=== PATIENT | female | born 1955 | race Caucasian/White ===

== ENCOUNTER 2018-05-22 07:02 | Day surgery (SDC) | payer MEDICARE, MEDICAID ==
--- NOTE | 2018-05-17 20:03 | HP ---
CC: Ruth Ledezma NP, at the [facility] in [place]; Dr. Breezy Mann; Maru Pierson NP, in [place] * ADMISSION HISTORY AND PHYSICAL: DATE OF ADMISSION: 05/22/18 ATTENDING SURGEON: Dr. Fermin Yeager.* (DICTATED BY GINA KUMAR) CHIEF COMPLAINT: Right breast cancer. HISTORY OF PRESENT ILLNESS: This is a 63-year-old female who noted the presence of a lump in her right breast around the 3 o'clock position beginning about a month ago. There was some associated tenderness. She does not do regular breast self exams. Her last prior mammogram had been in 2008. She was seen by her primary care provider. A mammogram was done on 04/20/18 showing a nodular lesion with irregular margins and mild surrounding architectural distortion measuring up to 1.8 cm in the right breast located at the 10 o'clock position. There was no suspicious lesion noted at the 3 o'clock position. A low suspicion lesion was noted on the left breast measuring 3 mm, but subsequently was compared with previous mammogram and found to be unchanged. Ultrasound was also done on 04/20/18 confirming the presence of a nodular mass measuring up to 1.5 cm in the same area corresponding to the aforementioned mammographic lesion. The patient underwent an ultrasound-guided biopsy of the lesion on 04/27/18. Pathology showed invasive ductal carcinoma, high- grade, triple negative. The patient has met with Dr. Mann, though I do not have that consult immediately available. She was seen by Dr. Yeager on 05/08/18. Per his exam, there was a small masoud from the recent biopsy, but no clearly palpable lesion in the right breast. There was no specific palpable lesion on the left breast nor was there any palpable lymphadenopathy. The patient's family is significant for a niece with history of breast cancer and her sister, who is present today, states that she underwent surgery for an ovarian carcinoma , though the details are not totally clear. Dr. Yeager discussed with the patient the indications for surgery, the risks, benefits and alternatives and the potential need for additional surgery. The patient would like to proceed as scheduled with wide-excision right breast cancer (following needle localization) and sentinel lymph node biopsy. PAST MEDICAL HISTORY: Hypertension, type 2 diabetes, GERD, morbid obesity, hypothyroidism (on replacement), depression, chronic pain (related both to back and to lower extremity neuropathy), obstructive sleep apnea (not currently being treated). PAST SURGICAL HISTORY: Include lumbar laminectomy, right knee arthroscopy, C- section x2, umbilical hernia repair with mesh x2 and tonsillectomy remotely. No reported surgical or anesthesia complications. CURRENT MEDICATIONS: 1. Pantoprazole 40 mg once daily. 2. Levothyroxine 50 mcg once daily. 3. Janumet XR 50-1000 1 tablet b.i.d. 4. Losartan and hydrochlorothiazide 100-12.5 once daily. 5. Fenofibrate 160 mg once daily. 6. Simvastatin 40 mg once daily. 7. Ranitidine 150 mg b.i.d. 8. Duloxetine 60 mg once daily. 9. Lyrica 150 mg 2 tablets once daily. 10. MS Contin 30 mg b.i.d. 11. MSIR 15 mg 4 tablets per day. 12. Combivent 20-100 mcg 1 puff 4 times daily p.r.n. (at most she uses it once daily). ALLERGIES: NIASPAN (lip swelling). FAMILY HISTORY: As above. Also 1 brother with history of DVT. No additional family members with VTE history. No family history of anesthesia problems or bleeding disorder. SOCIAL HISTORY: The patient lives with her granddaughter. She is a smoker of 1 pack per day and encouraged to quit. She denies use of alcohol or other recreational drugs. REVIEW OF SYSTEMS: General: No recent constitutional symptoms or acute illnesses other than described in the HPI. Eyes: No specific problems reported. Ears, Nose, Throat: No problems reported. She is edentulous. Cardiovascular: She is treated for hypertension. She denies history of chest pain, palpitations, MT or angina. Respiratory: COPD and active smoker. No history of asthma. GI: GERD symptoms, which are currently controlled on current regimen. No lower GI symptoms. She has never undergone a screening colonoscopy, but is encouraged to consider it and discuss with her PCP. : No history of kidney stones or other urinary problems. NEWS ASSISTANT: Her last pelvic exam and Pap smear were in 2008 with no interval problems reported. She is encouraged to also discuss this with her PCP. Endocrine: Type 2 diabetes, hypothyroidism. No additions. Neuro/Psych: As above. No additions. The patient is followed for chronic pain by Dr. Pierson in [place]. PHYSICAL EXAMINATION GENERAL: Well-nourished, morbidly obese female, in no acute distress. She is somewhat anxious. VITAL SIGNS: Height 61 inches, weight 265 pounds, BMI 50. Temperature 97.2, blood pressure 140/86, pulse 84, respirations 18. HEENT: Pupils equal and round, reactive. EOMs intact. No conjunctival pallor. Oropharynx: The patient is edentulous. No suspicious intraoral lesions. NECK: No cervical or supraclavicular lymphadenopathy. No axillary lymphadenopathy per Dr. Yeager's exam. No palpable thyromegaly or masses. LUNGS: Clear to auscultation. No rales or wheezes. HEART: Regular rate and rhythm. No murmur noted. BREASTS: As per Dr. Yeager's exam, not repeated today. ABDOMEN: She does have a midline bulge above the umbilicus consistent with a ventral hernia. This is mildly tender to palpation and partially reducible, though I did not make significant attempt to reduce it totally. The remainder of the abdomen is soft, nontender and without palpable masses or organomegaly. GENITALIA: Not done. RECTAL: Not done. BACK: Well-healed lumbar surgical incision, mild tenderness over the lumbar spinous processes. No CVA tenderness. EXTREMITIES: No edema. NEUROLOGICAL: Grossly intact. Specific exam not performed. SKIN: Warm and dry. No suspicious rashes or lesions noted. IMPRESSION: Right breast cancer. PLAN: Wide-excision right breast cancer (after needle localization); sentinel lymph node biopsy. GINA KUMAR [id number]/[facility] #: [id number] [facility]PITAL[facility]asyl
[~2018-05-22 07:02] MED LIST: Buffered Lidocaine 0.9% SYRIN* 5 ML/SYR SYRINGE INTRADERM ONE; ceFAZolin 1 GM VIAL(*) 3 GM in NS 0.9% 100 ML* 130 ML IVPB ONE
[2018-05-22] MEDS ORDERED: Lidocaine 2.5%/Prilocain 2.5%* 5 GM TUBE ONE (07:20)
[2018-05-22] MEDS ORDERED: Buffered Lidocaine 0.9% SYRIN* 5 ML/SYR SYRINGE ONE (07:20)
[2018-05-22] MEDS ORDERED: Insulin REGULAR(*) 1 UNITS UNIT ONE ×2 (08:44→12:10)
[2018-05-22] MEDS ORDERED: Bupivacaine 0.5% SDV PF* 30ML VIAL ONE (10:55)
[2018-05-22] MEDS ORDERED: Lidocaine 1%* 5 ML VIAL ONE (10:57)
--- NOTE | 2018-05-22 11:18 | RAD ---
INDICATION: Right breast carcinoma COMPARISON: Were needle localization same date TECHNIQUE: Informed consent was obtained. Routine timeout protocol was utilized. The right breast was prepped in sterile fashion and 4 intradermal injections representing a total of 0.329 mCi of technetium 99m sulfur colloid was injected in the periareolar region. Imaging was then performed in anterior, BHARDWAJ, and lateral projections. FINDINGS: There is faint visualization of the sentinel node which appears to represent a subclavian lymph node. This is marked on the skin surface No significant mid are high axillary activity is seen. There are faint foci which may represent low axillary lymph node or this may be related to malignancy. IMPRESSION: A SENTINEL NODE WAS MARKED WHICH APPEARS REPRESENT A SUBCLAVIAN LYMPH NODE. THESE FINDINGS WERE DISCUSSED WITH SURGERY.
[2018-05-22] MEDS ORDERED: ceFAZolin 1 GM in Dextrose (*) 1 GM/50 ML BAG IVPB ONE (12:00)
[2018-05-22] MEDS ORDERED: ceFAZolin 2 GM PREMIX (*) 2 GM/50 ML BAG IVPB ONE (12:00)
[2018-05-22] MEDS ORDERED: Albuterol/Ipratropium NEB.SOL* Albuterol 2.5 MG/Ipratropium 0.5 MG 3 ML INH ONE (12:05)
[2018-05-22] MEDS ORDERED: Albuterol/Ipratropium NEB.SOL* Albuterol 2.5 MG/Ipratropium 0.5 MG 3 ML ONE (12:06)
[2018-05-22] MEDS ORDERED: Dexmedetomidine* 200 MCG/2 ML 2 ML VIAL ONE (12:07)
[2018-05-22] MEDS ORDERED: Lidocaine 1% MPF wEPI 200,000* 30 ML SDV ONE ×2 (12:16→13:42)
[2018-05-22] MEDS ORDERED: Midazolam* 1 MG/ML 10 ML VIAL (10 MG) ONE (12:28)
[2018-05-22] MEDS ORDERED: Succinylcholine* 20 MG/ML 10 ML VIAL ONE (12:30)
[2018-05-22] MEDS ORDERED: Rocuronium* 10 MG/ML VIAL ONE (12:30)
--- NOTE | 2018-05-22 13:49 | RAD ---
INDICATION: Right breast carcinoma. Wire needle localization COMPARISON: Mammogram April 26, 2018 TECHNIQUE/FINDINGS:: Informed consent was obtained. A routine timeout protocol was then followed. The right breast was prepped in usual fashion and following infiltration of lidocaine for local anesthesia and using a lateral approach, a 7.5 cm Concepcion wire was placed cyst that the tip of the wire is at the clip. The patient tolerated the procedure well. There were no complications. The specimen radiograph is pending. A sentinel node scan is to follow. IMPRESSION: SUCCESSFUL WIRE NEEDLE LOCALIZATION OF THE RIGHT BREAST MASS. ADDENDUM: The specimen radiograph reveals the microclip, masses, and wire within the biopsy specimen. Findings called to the OR.
[2018-05-22] MEDS ORDERED: Propofol* 10 MG/ML 20 ML BTL IV PUSH ONE (13:58)
[2018-05-22] MEDS ORDERED: fentaNYL* 50 MCG/ML 2 ML VIAL (100 MCG VIAL) IV PRN (14:28)
[2018-05-22] MEDS ORDERED: Naloxone* 0.4 MG/ML 1 ML VIAL IV PRN (14:28)
[2018-05-22] MEDS ORDERED: Ondansetron INJ* 2 MG/ML VIAL IV PRN (14:28)
[2018-05-22] MEDS ORDERED: Acetaminophen TAB* 325 MG PO PRN (14:28)
[2018-05-22] MEDS ORDERED: Dextrose 50% Syringe 50 ML* 25 GM/50 ML SYRINGE IV PUSH PRN (14:30)
[2018-05-22] MEDS ORDERED: Insulin LISPRO* 1 UNITS UNIT SUBCUT ONE ×2 (14:30→14:40)
[2018-05-22 15:08] VITALS: BP 129/73
--- NOTE | 2018-05-22 19:39 | OP ---
CC: Dr. Yeager; Dr. Mann OPERATIVE REPORT: DATE OF OPERATION: 05/22/18 DATE OF : 55 SURGEON: Fermin Yeager MD CLINICAL RESEARCH MONITOR: MANISH Guaman ANESTHESIOLOGIST: Dr. Galindo. ANESTHESIA: LMAC. PRE-OP DIAGNOSIS: Right breast cancer. POST-OP DIAGNOSIS: Right breast cancer. OPERATIVE PROCEDURE: Needle localizing wide excision and sentinel node biopsy of right breast cancer . DESCRIPTION OF PROCEDURE: The patient was supine on the operative table. After adequate intravenous sedation, compression stockings, Lester Hugger warmer and intravenous antibiotics, the right breast an d axillary region were prepped with antiseptic and draped in a sterile fashion. Local infiltrative a nesthesia was administered and approximately 6 cm incision was created coming anteriorly from the wir e. Dissection was carried down into the breast and a piece of tissue approximately 6 x 4 x 2 cm was removed and marked with usual localizing sutures. The tumor was right along the anteromedial aspect, a little towards the inferior side of the specimen. An additional piece of tissue was taken from emelyn t aspect of the cavity. This was marked additionally anterior tissue with a suture marking the true margin and this was sent in formalin. The attention was then turned to the axilla. An incision was created, dissection was carried down to the axillary tissue. A cluster of nodes was identified and a lthough from the external aspect, I could not identify any hot nodes, once I found this cluster of no kelli, there was a hot node within this cluster. The cluster was dissected out on mass and was approxi mately 4 x 3 cm in size. This contained about 4 to 6 clustered nodes. One of them, I interrogated a nd found to be the sentinel node and this was dissected off the others and sent labelled sentinel nod e #1. The additional ones were labelled as additional right axillary nodes. Hemostasis was obtained using cautery and suture were appropriate 3-0 Vicryl followed by thad were used to close both inc isions. Gauze dressings were placed. She was awakened and brought to the recovery in good condition . There were no complications. No drains. Pathologic specimens as above. Sponge and instrument co unts correct. Estimated blood loss 50 mL. [id number]/[facility] #: [id number]
== END 2018-05-22 16:25 | disposition home or self-care (01) ==
LOC: SDS 07:02
PROVIDERS: ATTEND Surgery
DX: C50.911 Malignant neoplasm of unspecified site of right female breast (principal); I10 Essential (primary) hypertension; E11.9 Type 2 diabetes mellitus without complications; Z79.84 Long term (current) use of oral hypoglycemic drugs; E03.9 Hypothyroidism, unspecified; E66.01 Morbid (severe) obesity due to excess calories; G47.33 Obstructive sleep apnea (adult) (pediatric); K21.9 Gastro-esophageal reflux disease without esophagitis; F32.9 Major depressive disorder, single episode, unspecified; G89.29 Other chronic pain
CPT/HCPCS: 78195; 88305; 88307; 88342; 88360; A9270-GY; A9541; J0330; J0690; J2001; J2250; J2704

== ENCOUNTER 2018-06-25 17:17 | Inpatient (IN) | payer MEDICARE, MEDICAID ==
[2018-06-25] MEDS ORDERED: Acetaminophen TAB* 325 MG PO PRN (17:43)
[2018-06-25] MEDS ORDERED: Ondansetron INJ* 2 MG/ML VIAL IV PRN (17:43)
[2018-06-25] MEDS ORDERED: Morphine INJ* 2 MG/ML 1 ML SYRINGE (TWO MG - NEW SYRINGE VERSION) IV PRN (17:43)
[2018-06-25] MEDS ORDERED: Albuterol/Ipratropium RESP(NF) MDI (Combivent Respimat) INH PRN (17:46)
[2018-06-25] MEDS ORDERED: Prochlorperazine TAB* 10 MG PO PRN (17:46)
[2018-06-25] MEDS ORDERED: Magnesium Sulfate IV* 3 GM in NS 0.9% 100 ML* 100 ML IVPB ONE (17:52)
--- OUTSIDE RECORDS SUMMARY | 2018-06-25 18:27 | XMS REPORT ---
:1955 External Reference #:[id number] Author Organization [facility] Address [address] [place] [address] [place] [address] Phone [phone] Care Team Providers Name Role Phone Ruth Ledezma N.P. Primary Care Physician Unavailable Payers Type Date Identification Numbers Payment Provider Subscriber Medicare Primary Policy Number: [id number] Medicare Fouzia Hillman PayID: [id number] [address] [place] [address] [employer] Part B Policy Number: [id number] Medicaid Fouzia Hillman Group Name: 1 1 [address] PayID: [id number] [place] [address] Commercial Effective: 2011 Policy Number: [id number] Alphonso Hillman Expires: 2017 PayID: [id number] [address] [place] [address] Problems Description No Information Family History Date Family Member(s) Problem(s) Comments Father Hypertension Father Heart Disease Mother Lung Cancer Social History Type Date Description Comments Marital Status Occupation Disabled ETOH Use Denies alcohol use Smoking Patient is a current smoker, smokes every day Recreational Drug Use Denies Drug Use Daily Caffeine Consumes on average 1 cup of regular coffee per day Exercise Type/Frequency Does not exercise Allergies, Adverse Reactions, Alerts Date Description Reaction Status Severity Comments 09/14/2012 Niaspan DIFFICULTY BREATHING, RASH active Severe Medications Medication Date Status Form Strength Qnty SIG Indications Ordering Provider Combivent 00// Active Aerosol 20-100mcg/ inhale 1 Unknown Respimat 0000 Act puff 4 times daily as needed Duloxetine HCL / Active Caps DR 60mg 1 by Unknown 0000 Part mouth every day Fenofibrate / Active Tablets 160mg 1 by Unknown 0000 mouth every day Hydrochlorothiaz / Active Tablets 12.5mg/100 1 by Unknown deedee-Losartan 0000 mg mouth every day Janumet XR / Active Tablets ER 50-1000mg one tab Unknown 0000 24HR twice a day Levothyroxine / Active Tablets 50mcg 1 by Unknown Sodium 0000 mouth every day Lyrica / Active Capsules 150mg 1 by Unknown 0000 mouth twice a day Morphine Sulfate / Active Tablets 30mg two times Unknown 0000 a day Morphine Sulfate / Active Tablets 15mg four Unknown 0000 times a day Pantoprazole / Active Tablets DR 40mg 1 by Unknown Sodium 0000 mouth every day Ranitidine HCL / Active Tablets 150mg take one Unknown 0000 tablet by mouth twice a day Simvastatin / Active Tablets 40mg take 1 Unknown 0000 tablet by mouth at bedtime Vital Signs Date Vital Result Comment 05/30/2018 Heart Rate 66 /min BP Systolic Sitting 140 mmHg BP Diastolic Sitting 82 mmHg Respiratory Rate 18 /min Body Temperature 97.3 F 05/17/2018 Height 61 inches 5'1" Weight 265.00 lb declined to be weighed Heart Rate 84 /min BP Systolic Sitting 140 mmHg BP Diastolic Sitting 86 mmHg Respiratory Rate 18 /min Body Temperature 97.2 F BMI (Body Mass Index) 50.1 kg/m2 05/08/2018 Height 61 inches 5'1" Weight 265.00 lb Heart Rate 78 /min BP Systolic 120 mmHg BP Diastolic 80 mmHg Respiratory Rate 20 /min Body Temperature 98.0 F BMI (Body Mass Index) 50.1 kg/m2 Results Test Date Test Result H/L Range Note Laboratory test 05/22/2018 Point of Care 287 mg/dL High 70-100 1 finding Glucose Laboratory test 05/22/2018 Point of Care 295 mg/dL High 70-100 2 finding Glucose Laboratory test 05/22/2018 Point of Care 289 mg/dL High 70-100 3 finding Glucose Laboratory test 05/22/2018 Surgical Pathology SEE RESULT BELOW 4 finding Laboratory test 05/22/2018 Point of Care 246 mg/dL High 70-100 5 finding Glucose Laboratory test 05/22/2018 Point of Care 266 mg/dL High 70-100 6 finding Glucose Laboratory test 05/22/2018 Point of Care 283 mg/dL High 70-100 7 finding Glucose 1 [place]: [id number] 2 [place]: [id number] 3 [place]: [id number] 4 SEE RESULT BELOW Name: FOUZIA HILLMAN : [address]: Fermin Yeager MD Acct: [id number] Unit: [id number] AGE: 63 Location: SDS Re05/22/18 SEX: F Status: DEP [facility] [place] SPEC: [id number] CHAUNCEY: 05/22/18-1318 [facility] DR: Fermin Yeager MD REQ: [id number] RECD: 05/22/18-7593 STATUS: SOUT _ ORDERED: LEVEL 4, LEVEL 5/3, IMMUNO-FIRST, IMMUNO-QUANT/3 Addendum: Per CAP Guidelines hormone receptor studies for ER/IN and HER-2 are repeated on block 1G with appropriate controls. ER negative IN negative HER-2 negative (0+) Addendum Signed (signature on file) Say Bentley MD 1214 FINAL DIAGNOSIS 1. Breast, right, needle localization excision: -- Invasive ductal adenocarcinoma of breast, with: Size: 20 mm. Overall Mclouth grade: 3/3 (9/9 points). Tubule formation: 3. Nuclear grade: 3. Mitotic count: 3. Margins: Tumor approaches to 0.4 mm of the mid deep margin, within 2 mm of the inferior anterior margin and to within 4 mm of the mid superior anterior margin Lymphovascular invasion: Not seen. Skin: Not applicable. Chest-wall / pectoralis involvement: Not applicable. Ductal carcinoma in situ (DCIS): Focally present. Size: 1 mm. Extent and distribution: Seen in association with invasive carcinoma only. Architectural pattern: Solid. Nuclear grade: 3. Necrosis: Focally present. Margins: Approaches to within 2 mm of the mid anterior margin. ER, IN, Her2/hai by immunohistochemistry with appropriate controls: CONTINUED ON NEXT PAGE DEPARTMENT OF PATHOLOGY, [address] [place] [address] Say Bentley M.D. Director [facility] # [id number] RUN DATE: 05/28/18 [facility] LAB LIVE PAGE 2 Patient: BECKY,FOUZIA Dominguez [id number] (Continued) FINAL DIAGNOSIS (Continued) ER: Negative. See comment. IN: Negative. See comment. Her2/hai: Negative (1+). See comment. Microcalcifications: Not seen. Other findings: None. pTNM histopathologic stage: pT1c N 0 M N/A. 2. Breast, right, additional tissue anterior, biopsy: -- Benign breast tissue with focal fat necrosis. -- No evidence of neoplasia identified. 3. Axilla, right, sentinel lymph node biopsy: -- One lymph node with no tumor seen (0/1). See comment. 4. Axilla, right, additional lymph nodes, biopsy: -- Three lymph nodes with no tumor seen (0/3). Comment: The above reported hormone receptor studies are from prior biopsy [id number]. Per current CAP guidelines these studies will be repeated on block 1G and reported in an addendum. Per sentinel lymph node protocol multiple level sections were performed on all blocks from part 3 as well as immunohistochemical stains for pankeratin with appropriate controls. Dr. Lopez has reviewed this case and concurs. PRE-OPERATIVE DIAGNOSIS Malignant neoplasm of unspecified site of right breast cancer, 1) suture enamorado long lateral, medium medial, short superior, 2) suture enamorado true margin. CONTINUED ON NEXT PAGE DEPARTMENT OF PATHOLOGY, [address] [place] [address] Say Bentley M.D. Director [facility] # [id number] RUN DATE: 05/28/18 [facility] LAB LIVE PAGE 3 Patient: FOUZIA HILLMAN [id number] (Continued) GROSS DESCRIPTION (Continued) GROSS DESCRIPTION 1. The specimen is received fresh labeled, Right Breast Tissue, Usual Markings, and consists of a 10.3 x 6.6 by up to 2.6 cm yellow-pink irregular portion of fibrofatty soft tissue with three attached sutures which are designated as follows: long- lateral, short-superior and medium-medial. There is a needle localization wire entering the specimen from the lateral aspect and extending towards the central specimen. There is a 2.0 x 1.8 x 1.7 cm davila-pink indurated mass within the central to medial specimen associated with the distal tip of the wire, 0.1 cm from the inferior anterior margin and 0.3 cm from the deep margin. Within the mass there is a 0.3 x 0.1 cm silver metallic cylindrical clip. The remaining cut surface consists predominantly of yellow lobulated adipose tissue with scant interspersed davila-pink fibrous tissue and mild focal hemorrhage. The specimen is inked as follows: superior anterior-blue, inferior anterior-green and deep-black, serially sectioned from lateral to medial and surgical sales representative sections are submitted in cassettes A through K to include mass in cassettes E through J including section containing clip in cassette G. 2. The specimen is received in formalin labeled, Additional Right Breast Tissue Anterior, Suture Enamorado True Margin, and consists of a 4.8 by up to 4.6 x 1.3 cm yellow pink irregular portion of fibrofatty soft tissue with one attached suture which designates the true margin. The cut surface consists predominantly of yellow lobulated adipose tissue with scant interspersed davila-pink fibrous tissue and mild focal hemorrhage. A discrete lesion is not identified. The true margin is inked, the specimen is serially sectioned and surgical sales representative sections are submitted in five cassettes. 3. The specimen is received in formalin labeled, Right [place] Node, and consists of a 2.5 x 2.2 by up to 1.0 cm davila-pink lymph node with abundant adherent yellow fat. The lymph node is serially sectioned and entirely submitted in three cassettes. 4. The specimen is received in formalin labeled, Additional Right Axillary Tissue, and consists of three yellow-pink lymph nodes with abundant adherent adipose tissue ranging from 2.4 x 2.1 x 0.9 cm to 3.9 x 2.6 x 1.3 cm. The specimen is serially sectioned and entirely submitted in cassettes A through I as follows: A and B-lymph node, C through E-lymph node and F through I-lymph node. Signed by and Reported on: Say Bentley MD 05/07 1234 END OF REPORT DEPARTMENT OF PATHOLOGY, [address] [place] [address] Say Bentley M.D. Director [facility] # [id number] 5 [place]: [id number] [place]: [id number] 7 [place]: [id number] Procedures Date CPT Code Description Status 05/22/2018 88260 Biopsy/Excision Deep Axillary Node(S) Completed 05/22/2018 74148 Mastectomy Partial Completed 05/22/2018 Mammogram Completed 04/20/2018 Mammogram Completed 11/02/2012 27917 Stress Test Completed 10/18/2012 82012 ECHO Transthoracic, Real-Time 2D With Doppler And Color Completed Flow 09/14/2012 82913 EKG Tracing & Interpretation Completed 08/24/2004 00351 EKG, Interpretation Only Completed Encounters Type Date Location Provider CPT E/M Dx Office Visit 05/08/2018 [facility] Fermin Yeager, [address] C50.911 10:30a Of Lexi Monterroso Office Visit 12/07/2012 [facility] Angel Flowers, 71667 785.1 3:30p Lexi Monterroso 786.50 Office Visit 09/14/2012 1:00p [facility] Angel Flowers, 35494 785.1 Lexi Monterroso 786.05 Plan of Care 05/30/2018 - Fermin Yeager M.D.C50.911 Malignant neoplasm of unsp site of right female breastReferral:Neri Smith MD, Radiation OncologyFollow up:As needed
--- OUTSIDE RECORDS SUMMARY | 2018-06-25 18:27 | XMS REPORT ---
:1955 External Reference #:[id number] Author Organization [facility] Address [address] [place] [address] [place] [address] Phone [phone] Care Team Providers Name Role Phone Ruth Ledzema N.P. Primary Care Physician Unavailable Payers Type Date Identification Numbers Payment Provider Subscriber Medicare Primary Policy Number: [id number] Medicare Fouzia Hillman PayID: [id number] [address] [place] [address] [employer] Part B Policy Number: [id number] Medicaid Fouzia Hillman Group Name: 1 1 [address] PayID: [id number] [place] [address] Commercial Effective: 2011 Policy Number: [id number] Alphonso Hillman Expires: 2017 PayID: [id number] [address] [place] [address] Problems Description No Information Family History Date [...] bedtime Vital Signs Date Vital Result Comment 06/18/2018 Heart Rate 74 /min Respiratory Rate 18 /min Body Temperature 97.8 F 05/30/2018 Heart Rate 66 /min BP Systolic [...] mg/dL High 70-100 7 finding Glucose 1 Electrotherapist: [id number] 2 Electrotherapist: [id number] Electrotherapist: [id number] 4 SEE RESULT BELOW Name: FOUZIA HILLMAN : [address]: Fermin Yeager MD Acct: [id number] Unit: [id number] AGE: 63 Location: SDS Re05/22/18 SEX: F Status: DEP SDC SPEC: [id number] CHAUNCEY: 05/22/18-1318 [facility] DR: Fermin Yeager MD REQ: [id number] RECD: 05/22/18-1406 STATUS: SOUT _ ORDERED: LEVEL 4, LEVEL 5/3, IMMUNO-FIRST, IMMUNO-QUANT/3 Addendum: Per CAP Guidelines hormone receptor studies for ER/RI and HER-2 are repeated on block 1G with appropriate controls. ER negative RI negative HER-2 negative (0+) Addendum Signed (signature on file) Say Bentley MD 1214 FINAL DIAGNOSIS 1. Breast, right, needle localization excision: -- Invasive ductal adenocarcinoma of breast, with: Size: 20 mm. Overall Aisha grade: 3/3 (9/9 points). Tubule formation: 3. [...] mm of the mid anterior margin. ER, RI, Her2/hai by immunohistochemistry with appropriate controls: CONTINUED ON NEXT PAGE DEPARTMENT OF PATHOLOGY, [address] [place] [address] Say Bentley M.D. Director [facility] # [id number] RUN DATE: 05/28/18 [facility] LAB LIVE PAGE 2 Patient: FOUZIA HILLMAN [id number] (Continued) FINAL DIAGNOSIS (Continued) ER: Negative. See comment. RI: Negative. See comment. Her2/hai: Negative (1+). See [...] hormone receptor studies are from prior biopsy [id number]. Per current CAP guidelines these studies will [...] CONTINUED ON NEXT PAGE DEPARTMENT OF PATHOLOGY, [address] [place] [address] Say Bentley M.D. Director [facility] # [id number] RUN DATE: 05/28/18 [facility] LAB LIVE PAGE 3 Patient: BECKYFOUZIA [id number] (Continued) GROSS DESCRIPTION (Continued) GROSS DESCRIPTION 1. [...] serially sectioned from lateral to medial and door to door sales representative sections are submitted in cassettes [...] inked, the specimen is serially sectioned and door to door sales representative sections are submitted in five cassettes. 3. The specimen is received in formalin labeled, Right [place] Node, and consists of a 2.5 x [...] 1234 END OF REPORT DEPARTMENT OF PATHOLOGY, [address] [place] [address] Say Bentley M.D. Director [facility] # [id number] 5 Electrotherapist: [id number] Electrotherapist: [id number] Electrotherapist: [id number] Procedures Date CPT Code Description Status 05/22/2018 22838 Biopsy/Excision Deep Axillary Node(S) Completed 05/22/2018 28015 Mastectomy Partial Completed 05/22/2018 Mammogram Completed 04/20/2018 Mammogram Completed 11/02/2012 85084 Stress Test Completed 10/18/2012 28229 ECHO Transthoracic, Real-Time 2D With Doppler And Color Completed Flow 09/14/2012 09714 EKG Tracing & Interpretation Completed 08/24/2004 70813 EKG, Interpretation Only Completed Encounters Type Date Location Provider CPT E/M Dx Office Visit 05/08/2018 [facility] Fermin Yeager, 48507 C50.911 10:30a Of Lexi Monterroso Office Visit 12/07/2012 [facility] Angel Flowers, 95861 785.1 3:30p Lexi Monterroso 786.50 Office Visit 09/14/2012 1:00p [facility] Angel Flowers, 88797 785.1 Lexi Monterroso 786.05 Plan of Care 05/30/2018 - Fermin Yeager M.D.C50.911 Malignant neoplasm of unsp site of right female breastReferral:Neri Smith MD, Radiation OncologyFollow up:As needed
[2018-06-25] MEDS: Morphine ORAL.SOLN 10 mg* 2 MG/ML UDC 5 ml PO PRN ×2 (19:38→23:37)
[2018-06-25] MEDS: CMC:Pantoprazole TAB (NF) 40 MG TAB PO SCH (19:40)
[2018-06-25] MEDS: DULoxetine DR CAP* 60 MG CAP.DR PO SCH (19:40)
[2018-06-25] MEDS: Enoxaparin(*) 40 MG/0.4 ML SYR SUBCUT SCH (19:40)
[2018-06-25] MEDS: Fluconazole 200 MG IVPREMIX(*) 200 MG/100 ML BAG IVPB SCH (19:42)
[2018-06-25] MEDS ORDERED: Morphine TAB Extended Release (*) 30 MG TAB.ER PO PRN (21:00)
[2018-06-25] MEDS: NS 0.9% w/ 40 Meq KCL 1000 ML* 1,000 ML IV SCH (21:48)
[2018-06-25] MEDS: CMC:SitaGLIPtin (NF) 25 MG TAB PO SCH (21:49)
[2018-06-25] MEDS: Pregabalin CAP(*) 100 MG PO SCH (21:49)
[2018-06-25] MEDS: metFORMIN* 1,000 MG TAB PO SCH (21:49)
[2018-06-25] MEDS: Insulin LISPRO* 1 UNITS UNIT SUBCUT SCH (21:50)
[2018-06-25] MEDS: Nystatin TOP POWDER* 15 GM BTL TOPICAL SCH (23:56)
[2018-06-26] MEDS: NS 0.9% w/ 40 Meq KCL 1000 ML* 1,000 ML IV SCH ×2 (05:05→12:14)
[2018-06-26 06:48] LABS: Hematocrit 36 % (35-47); Hemoglobin 12.1 g/dl (12.0-16.0); Mean Corpuscular HGB Conc 34 g/dl (31-36); Mean Corpuscular Hemoglobin 28 pg (27-31); Mean Corpuscular Volume 84 fL (80-97); Mean Platelet Volume 9.4 um3 (7.4-10.4); Platelet Count 124 10^3/ul (150-450); Red Blood Count 4.28 10^6/ul (4.00-5.40); Red Cell Distribution Width 15 % (10.5-15); White Blood Count 1.5 10^3/ul (3.5-10.8)
[2018-06-26 06:51] LABS: ABS Basophils 0 10^3/ul (0-0.2); ABS Eosinophils 0 10^3/ul (0-0.6); ABS Lymphocytes 1.3 10^3/ul (1.0-4.8); ABS Monocytes 0 10^3/ul (0-0.8); ABS Neutrophils 0.1 10^3/ul (1.5-7.7); ABS Nucleated RBC 0 10^3/ul; Eosinophil % 1.2 % (0-6); Lymphocyte % 91.1 % (25-47); Nucleated Red Blood Cells % 0.2
[2018-06-26 06:57] LABS: EGFR Non-African American 92.1 (>60)
--- NOTE | 2018-06-26 07:57 | RAD ---
INDICATION: Refractory nausea and vomiting COMPARISON: Chest x-ray dated July 15, 2014 TECHNIQUE: PA and lateral views of the chest were obtained. FINDINGS: The patient's left-sided Mediport appears to have distended inferiorly relative to the fluoroscopic image acquired at the time of instillation. The port measures approximately 9 cm below the level of the left clavicle. The tip of the catheter now terminates at the mid SVC. The heart and mediastinum are normal in size and contour. The lungs are grossly clear. There is no evidence of large pleural effusion. Visualized bones are normal for the patient's age. There is no radiographic evidence of free air beneath the diaphragm IMPRESSION: 1. NO RADIOGRAPHIC EVIDENCE OF ACUTE CARDIOPULMONARY DISEASE. 2. RELATIVE TO THE FLUOROSCOPIC IMAGING ACQUIRED THE TIME OF INSTILLATION, THE MEDIPORT HAS DISTENDED APPROXIMATELY 9 CM INFERIOR FROM THE CLAVICLE CAUSING THE CATHETER TIP TO NOW TERMINATE AT THE MID SVC. PLEASE BE VIGILANT FOR SIGNS OF PORT MALFUNCTION.
[2018-06-26] MEDS: Pregabalin CAP(*) 100 MG PO SCH ×2 (08:23→21:25)
[2018-06-26] MEDS: Atorvastatin* 20 MG TAB PO SCH (08:23)
[2018-06-26] MEDS: Insulin LISPRO* 1 UNITS UNIT SUBCUT SCH ×4 (08:25→21:19)
[2018-06-26] MEDS: metFORMIN* 1,000 MG TAB PO SCH ×2 (08:25→21:26)
[2018-06-26] MEDS: Nystatin TOP POWDER* 15 GM BTL TOPICAL SCH ×2 (08:26→21:20)
[2018-06-26] MEDS: Morphine ORAL.SOLN 10 mg* 2 MG/ML UDC 5 ml PO PRN ×2 (08:33→20:02)
[2018-06-26] MEDS: CMC:SitaGLIPtin (NF) 25 MG TAB PO SCH ×2 (08:36→21:25)
[2018-06-26] MEDS: Levothyroxine TAB* 50 MCG TAB PO SCH (12:12)
[2018-06-26 17:01] LABS: Urine Appearance Clear; Urine Blood Negative (Negative); Urine Color Amber; Urine Ketones Negative (Negative); Urine Protein Negative (Negative); Urine Specific Gravity 1.016 (1.010-1.030); Urine Urobilinogen Positive (Negative)
--- NOTE | 2018-06-26 18:13 | PN ---
Progress Note - Progress Note Date of Service: 06/26/18 SOAP: Subjective: [This is a 63 yo female with triple neg BCA s/p lumpectomy who recently started adjuvant chemotherapy admitted following C1 with dizziness, mild confusion and profound malaise. Neutropenic, but without fevers. She reports feeling better today. Energy has improved. Appetite returning. Still feels somewhat dizzy and unstable on her feet.] Objective: [ Laboratory Results - last 24 hr 06/25/18 06/26/18 06/26/18 15:42 06:25 06:25 WBC 1.5 L RBC 4.28 Hgb 12.1 Hct 36 MCV 84 MCH 28 MCHC 34 RDW 15 Plt Count 124 L MPV 9.4 Neut % (Auto) 4.4 L Lymph % (Auto) 91.1 H [place] % (Auto) 2.8 Eos % (Auto) 1.2 Baso % (Auto) 0.5 Absolute Neuts (auto) 0.1 L Absolute Lymphs (auto) 1.3 Absolute Monos (auto) 0 Absolute Eos (auto) 0 Absolute Basos (auto) 0 Absolute Nucleated RBC 0 Nucleated RBC % 0.2 Sodium 138 Potassium 3.9 Chloride 106 Carbon Dioxide 28 Anion Gap 4 BUN 10 Creatinine 0.65 Est GFR ( Amer) 111.4 Est GFR (Non-Af Amer) 92.1 BUN/Creatinine Ratio 15.4 Glucose 166 H POC Glucose (mg/dL) Calcium 8.3 L Magnesium 2.0 Total Bilirubin 0.50 AST 76 H ALT 57 H Alkaline Phosphatase 91 Total Protein 6.2 L Albumin 3.3 Globulin 2.9 Albumin/Globulin Ratio 1.1 Urine Color Umu Urine Appearance Clear Urine pH 5.0 Ur Specific [place] 1.016 Urine Protein Negative Urine Ketones Negative Urine Blood Negative Urine Nitrate Negative Urine Bilirubin Negative Urine Urobilinogen Positive A Ur Leukocyte Esterase Negative Urine Glucose Negative 06/26/18 06/26/18 06/26/18 08:06 11:43 16:59 WBC RBC Hgb Hct MCV MCH MCHC RDW Plt Count MPV Neut % (Auto) Lymph % (Auto) [place] % (Auto) Eos % (Auto) Baso % (Auto) Absolute Neuts (auto) Absolute Lymphs (auto) Absolute Monos (auto) Absolute Eos (auto) Absolute Basos (auto) Absolute Nucleated RBC Nucleated RBC % Sodium Potassium Chloride Carbon Dioxide Anion Gap BUN Creatinine Est GFR ( Amer) Est GFR (Non-Af Amer) BUN/Creatinine Ratio Glucose POC Glucose (mg/dL) 159 H 179 H 181 H Calcium Magnesium Total Bilirubin AST ALT Alkaline Phosphatase Total Protein Albumin Globulin Albumin/Globulin Ratio Urine Color Urine Appearance Urine pH Ur Specific [place] Urine Protein Urine Ketones Urine Blood Urine Nitrate Urine Bilirubin Urine Urobilinogen Ur Leukocyte Esterase Urine Glucose Acetaminophen (Tylenol Tab*) 650 mg PO Q4H PRN PRN Reason: FEVER/PAIN Albuterol/Ipratropium (Combivent Respimat(Nf)) 1 puff INH QID PRN; Protocol PRN Reason: SOB/WHEEZING Atorvastatin Calcium (Lipitor*) 20 mg PO QAM [facility] Last Admin: 06/26/18 08:23 Dose: 20 mg Duloxetine HCl (Cymbalta Cap*) 60 mg PO QPM [facility] Last Admin: 06/25/18 19:40 Dose: 60 mg Enoxaparin Sodium (Lovenox(*)) 40 mg SUBCUT Q24H [facility] Last Admin: 06/25/18 19:40 Dose: 40 mg Fluconazole/Sodium Chloride (Diflucan 200 Mg Ivpremix(*)) 200 mg in 100 mls @ 100 mls/hr IVPB Q24H [facility] Last Admin: 06/25/18 19:42 Dose: 100 mls/hr Potassium Chloride/Sodium Chloride (Ns 0.9% W/ 40 Meq Kcl 1000 Ml*) 1,000 mls @ 150 mls/hr IV PER RATE [facility] Last Admin: 06/26/18 12:14 Dose: 150 mls/hr Insulin Human Lispro (Humalog*) 0 units SUBCUT ACHS [facility]; Protocol Last Admin: 06/26/18 12:12 Dose: 3 units Levothyroxine Sodium (Synthroid Tab*) 50 mcg PO 1200 [facility] Last Admin: 06/26/18 12:12 Dose: 50 mcg Metformin HCl (Glucophage*) 1,000 mg PO BID [facility] Last Admin: 06/26/18 08:25 Dose: 1,000 mg Morphine Sulfate (Morphine Inj ((Syringe))*) 2 mg IV Q4H PRN PRN Reason: PAIN - MILD Morphine Sulfate (Ms Contin(*)) 30 mg PO Q12HR PRN PRN Reason: PAIN Last Admin: 06/26/18 08:24 Dose: 30 mg Morphine Sulfate (Morphine Oral.Soln 10 Mg*) 15 mg PO Q4HR PRN PRN Reason: PAIN Last Admin: 06/26/18 08:33 Dose: 15 mg Nystatin (Nystatin Top Powder*) 1 applic TOPICAL BID [facility] Last Admin: 06/26/18 08:26 Dose: 1 applic Ondansetron HCl (Zofran Inj*) 4 mg IV Q4H PRN PRN Reason: NAUSEA/VOMITING Last Admin: 06/25/18 22:08 Dose: 4 mg Pantoprazole Sodium (Protonix Tab (Nf)) 40 mg PO QPM [facility] Last Admin: 06/25/18 19:40 Dose: 40 mg Pregabalin (Lyrica Cap(*)) 100 mg PO BID [facility] Last Admin: 06/26/18 08:23 Dose: 100 mg Prochlorperazine (Compazine Tab*) 10 mg PO Q6H PRN PRN Reason: NAUSEA Last Admin: 06/26/18 01:13 Dose: 10 mg Sitagliptin Phosphate (Januvia (Nf)) 50 mg PO BID [facility] Last Admin: 06/26/18 08:36 Dose: Not Given Vital Signs: Temp Pulse Resp BP Pulse Ox 98.2 F 75 16 122/65 94 06/26/18 15:56 06/26/18 16:00 06/26/18 15:56 06/26/18 16:00 06/26/18 16:00 Exam: Chronically ill and obese appearing woman in NAD HEENT: MMM CV: RRR, no m/r/g Resp: lungs CTA in NAD Abd: soft, nonTTP Ext: no edema Skin: some excoriation and red patches in perimeter surrounding port, yeast rash within inguinal folds, worse in L v R] Assessment: [This is a 63 yo female with triple neg BCA s/p lumpectomy who recently started adjuvant chemotherapy admitted following C1 with dizziness, mild confusion and profound malaise. Neutropenic, but without fevers.] Plan: [1. Neutropenia - no fever - no empiric IV abx, but concerned for possible development of secondary infection surrounding port, so will start 1st gen cefalosporin 2. Chemotherapy toxicity - tolerated C1 very poorly - improved with IV hydration - check orthostatic vitals signs given c/o dizziness - request PT eval 3. Rash - 2 separate rashes - around port looks to be hypersensitivity, perhaps from dressing - start hydrocortisone cream -- some associated excoriation, concern that she may develop secondary infection while neutropenic and hyperglycemic -- start Keflex as least for several days while neutropenic - 2nd rash is in the inguinal region - appears to be yeast -- cont fluconazole 4. DM - poor control at home, exacerbated by steroid use - now improved - check HgbA1c - will likely need home insulin 5. BCA - plan for 4 cycles of adjuvant TC, patient is considering whether she can tolerate subsequent cycles - will discuss with Dr Mann prior to scheduled C2 6. Malfunctioning port - CXR suggestive of significant migration of port - will discuss with IR Dispo: anticipate dc home in next 1-2 days ]
[2018-06-26] MEDS: Enoxaparin(*) 40 MG/0.4 ML SYR SUBCUT SCH (18:15)
[2018-06-26] MEDS: CMC:Pantoprazole TAB (NF) 40 MG TAB PO SCH (18:16)
[2018-06-26] MEDS: DULoxetine DR CAP* 60 MG CAP.DR PO SCH (18:16)
[2018-06-26] MEDS: Fluconazole 200 MG IVPREMIX(*) 200 MG/100 ML BAG IVPB SCH (18:17)
[2018-06-26] MEDS: Cephalexin CAP* 500 MG PO SCH (21:24)
[2018-06-26] MEDS: Hydrocortisone 1% CREAM* 30 GM TUBE TOPICAL SCH (21:37)
[2018-06-27] MEDS: Morphine ORAL.SOLN 10 mg* 2 MG/ML UDC 5 ml PO PRN ×3 (00:11→12:15)
[2018-06-27 07:42] VITALS: BP 128/72
[2018-06-27] MEDS: Hydrocortisone 1% CREAM* 30 GM TUBE TOPICAL SCH (08:47)
[2018-06-27] MEDS: CMC:SitaGLIPtin (NF) 25 MG TAB PO SCH (08:47)
[2018-06-27] MEDS: Nystatin TOP POWDER* 15 GM BTL TOPICAL SCH (08:47)
[2018-06-27] MEDS: Cephalexin CAP* 500 MG PO SCH ×2 (08:47→12:10)
[2018-06-27] MEDS: metFORMIN* 1,000 MG TAB PO SCH (08:47)
[2018-06-27] MEDS: Atorvastatin* 20 MG TAB PO SCH (08:47)
[2018-06-27] MEDS: Pregabalin CAP(*) 100 MG PO SCH (08:48)
[2018-06-27] MEDS: Insulin LISPRO* 1 UNITS UNIT SUBCUT SCH ×2 (08:48→12:10)
[2018-06-27] MEDS ORDERED: Fluconazole 100 MG TAB* TAB PO SCH (11:00)
--- NOTE | 2018-06-27 11:27 | DS ---
- Discharge Summary ADMIT DATE:06/25/18 DISCHARGE DATE:06/27/18 DISCHARGE DIAGNOSIS: 1. chemotherapy induced nausea and anorexia 2. dehydration related to chemotherapy induced nausea and anorexia 3. poorly controlled diabetes, HbA1c 11.1 DISCHARGE MEDICATIONS: Home Medications Medication Instructions Recorded Confirmed Type Albuterol/Ipratropium RESP(NF) 1 puff INH QID PRN 03/01/17 06/25/18 History [Combivent Respimat (NF)] DULoxetine DR CAP* [Cymbalta CAP*] 60 mg PO QPM 03/01/17 06/25/18 History Fenofibrate Nanocrystallized 160 mg PO QAM 03/01/17 06/25/18 History [Triglide] Pantoprazole TAB (NF) [Protonix 40 mg PO QPM 03/01/17 06/25/18 History TAB (NF)] Ranitidine TAB (NF) [Zantac TAB 150 mg PO QPM 03/01/17 06/25/18 History (NF)] Simvastatin TAB(NF) [Zocor 20 MG 40 mg PO QAM 03/01/17 06/25/18 History (NF)] Sitaglipt/Metform (NF) 1 tab PO BID 03/01/17 06/25/18 History [Janumet (NF)] Levothyroxine TAB* [Synthroid TAB*] 50 mcg PO 1200 05/18/18 06/25/18 History Losartan/Hydrochlorothiazide 1 tab PO DAILY 06/15/18 06/25/18 History [Losartan-Hctz 100-12.5 mg Tab] Morphine Sulfate 15 mg PO Q4HR PRN 06/15/18 06/25/18 History Morphine Sulfate [Morphine Sulfate 30 mg PO Q12HR PRN 06/15/18 06/25/18 History ER] Pregabalin CAP(*) [Lyrica CAP(*)] 100 mg PO BID 06/15/18 06/25/18 History Ondansetron HCl [Zofran 4 MG TAB] 4 mg PO Q4HR PRN 06/25/18 06/25/18 History Prochlorperazine TAB* [Compazine 10 mg PO Q6H PRN 06/25/18 06/25/18 History Tab*] Cephalexin CAP* [Keflex 500 CAP*] 500 mg PO QID 5 Days #20 cap 06/27/18 Rx Fluconazole 100 MG TAB* [Diflucan 200 mg PO DAILY 7 Days #14 tab 06/27/18 Rx 100 MG TAB*] Insulin LISPRO* [HumaLOG*] 0 units SUBCUT ACHS unit 06/27/18 Rx HOSPITAL COURSE: See full admit H+P, briefly 63 yo morbidly obese F w multiple medical problems including poorly controlled diabetes, T2N0 triple negative breast cancer sp cycle 1 of adjuvant TC admitted with nausea and anorexia as well as dehydration. She was hydrated and improved markedly. She was also noted to have diffuse candidal skin infection and hyperglycemia. She admits to not using her home insulin because she did not have a glucometer. Her HbA1c is 11.1. She was counseled on the importance of going back on this, and given a script for a glucometer. She was also advised to discuss with her primary better diabetes control. She has mild redness at her port that looks like dermatitis, however with her poorly controlled diabetes and neutropenia, she will be covered prophylactically with keflex for 5 more days. >30 mins spent, >50% in face to face counseling
[2018-06-27] MEDS: Levothyroxine TAB* 50 MCG TAB PO SCH (12:10)
== END 2018-06-27 14:30 | disposition home or self-care (01) | DRG 392 ==
LOC: EDSTATUS 18:21 → MED 18:22
PROVIDERS: ADMIT Internal Medicine Hematology & Oncology; ATTEND Internal Medicine Hematology & Oncology
DX: R11.0 Nausea (principal); Z68.42 Body mass index [BMI] 45.0-49.9, adult; T45.1X5A Adverse effect of antineoplastic and immunosuppressive drugs, initial encounter; E86.0 Dehydration; C50.919 Malignant neoplasm of unspecified site of unspecified female breast; Z17.1 Estrogen receptor negative status [ER-]; E66.01 Morbid (severe) obesity due to excess calories; E11.65 Type 2 diabetes mellitus with hyperglycemia; J44.9 Chronic obstructive pulmonary disease, unspecified; F32.9 Major depressive disorder, single episode, unspecified; K21.9 Gastro-esophageal reflux disease without esophagitis; E78.5 Hyperlipidemia, unspecified; I10 Essential (primary) hypertension; M19.90 Unspecified osteoarthritis, unspecified site; E11.42 Type 2 diabetes mellitus with diabetic polyneuropathy; G47.30 Sleep apnea, unspecified; F17.210 Nicotine dependence, cigarettes, uncomplicated; B36.9 Superficial mycosis, unspecified; D70.9 Neutropenia, unspecified; Y92.009 Unspecified place in unspecified non-institutional (private) residence as the place of occurrence of the external cause; Z88.8 Allergy status to other drugs, medicaments and biological substances; Z79.899 Other long term (current) drug therapy; Z79.4 Long term (current) use of insulin; Z83.3 Family history of diabetes mellitus; Z80.3 Family history of malignant neoplasm of breast; Z80.8 Family history of malignant neoplasm of other organs or systems; Z80.1 Family history of malignant neoplasm of trachea, bronchus and lung
CPT/HCPCS: 36415; 71046; 80053; 81003; 83036; 83735; 85025; 85060; 99223; 99232; 99239; A9270-GY; G8978-GP-CI; G8979-GP-CI; G8980-GP-CI; J1450; J1650; J2405; J3475; Q0164

== ENCOUNTER 2018-07-09 15:54 | Observation (INO) | payer MEDICARE, MEDICAID ==
[2018-07-09] MEDS ORDERED: NS 0.9% 1000 ML* 1,000 ML IV ONE (16:24)
[2018-07-09 16:46] LABS: Hematocrit 36 % (35-47); Hemoglobin 12.1 g/dl (12.0-16.0); Mean Corpuscular HGB Conc 34 g/dl (31-36); Mean Corpuscular Hemoglobin 28 pg (27-31); Mean Corpuscular Volume 84 fL (80-97); Mean Platelet Volume 8.2 um3 (7.4-10.4); Platelet Count 257 10^3/ul (150-450); Red Cell Distribution Width 15 % (10.5-15); White Blood Count 10.4 10^3/ul (3.5-10.8)
[2018-07-09 16:56] LABS: INR 1.16 (0.77-1.02)
[2018-07-09 17:06] LABS: EGFR Non-African American 85.9 (>60)
[2018-07-09] MEDS ORDERED: Potassium Chlor TAB* 20 MEQ TAB.ER PO ONE ×2 (17:14→21:15)
[2018-07-09 17:21] LABS: ABS Basophils 0.1 10^3/ul (0-0.2); ABS Eosinophils 0 10^3/ul (0-0.6); ABS Lymphocytes 1.8 10^3/ul (1.0-4.8); ABS Monocytes 0.6 10^3/ul (0-0.8); ABS Neutrophils 7.8 10^3/ul (1.5-7.7); ABS Nucleated RBC 0 10^3/ul; Eosinophil % 0 % (0-6); Lymphocyte % 17.6 % (25-47); Nucleated Red Blood Cells % 0.1
--- NOTE | 2018-07-09 17:34 | ED ---
GI/ HPI - HPI Summary HPI Summary: Pt is a 63 y/o female who presents to [facility] c/o N/V/D since this morning. Pt has breast cancer and was referred here by Dr. Mann, with her last chemotherapy treatment 2.5 weeks ago. She also c/o weakness, abdominal pain, chills, fatigue, and decreased appetite. She denies any fever, SOB, CP, or palpitations. The diarrhea is described as watery and the pain is described as 4 /10 and aching. Pt states eating made her feel better. Her last BM was at 2 PM today. PSHx 2 umbilical hernias. Pt was recently on antibiotics, and denies any history of C. Diff. or CHF. She also complains her port area is painful. - History of Current Complaint Chief Complaint: EDNauseaVomitDiarrh Time Seen by Provider: 07/09/18 16:23 Stated Complaint: ABD PAIN Hx Obtained From: Patient, Family/Public Records Researcher - Daughter Onset/Duration: Started Hours Ago - This morning, Still Present Timing: Constant Severity: Moderate Pain Intensity: 6 Location of Pain: Diffuse - Abdominal Associated Signs and Symptoms: Positive: Nausea, Vomiting, Diarrhea, Chills. Negative: Chest Pain Aggravating Factor(s): Nothing - Additional Pertinent History Primary Care Physician: [id number] - Allergy/Home Medications Allergies/Adverse Reactions: Allergies Allergy/AdvReac Type Severity Reaction Status Date / Time niacin Allergy Hives/Diff. Verified 07/09/18 16:19 [From Niaspan Breathing/I Extended-Release] tching Home Medications: Home Medications DULoxetine CAP* [Cymbalta CAP*] 60 mg PO DAILY 07/09/18 [History Confirmed ] Fenofibrate(NF) [Tricor(NF)] 160 mg PO DAILY 07/09/18 [History Confirmed ] Levothyroxine TAB* [Synthroid TAB*] 50 mcg PO DAILY 07/09/18 [History Confirmed 07/09/18] PMH/Surg Hx/FS Hx/Imm Hx Endocrine/Hematology History: Reports: Hx Diabetes - TYPE 2, Hx Thyroid Disease - HYPOTHYROID Denies: Hx Bone Marrow Disease, Hx Sickle Cell Disease, Hx Anemia Cardiovascular History: Reports: Hx Hypertension, Hx Peripheral Vascular Disease , Other Cardiovascular Problems/Disorders - HIGH CHOLESTEROL Respiratory History: Reports: Hx Asthma, Hx Chronic Obstructive Pulmonary Disease (COPD), Hx Sleep Apnea - CAN'T USE CPAP, CAUSES MIGRAINES, Other Respiratory Problems/Disorders - COPD, 1 PPD SMOKER FOR 48 YRS GI History: Reports: Hx Gastroesophageal Reflux Disease Musculoskeletal History: Reports: Hx Arthritis, Other Musculoskeletal History - HX OF RIGHT KNEE PAIN, SURGERY, CHRONIC BACK PAIN Sensory History: Denies: Hx Cataracts, Hx Contacts or Glasses, Hx Glaucoma, Hx Hearing Aid Opthamlomology History: Denies: Hx Cataracts, Hx Contacts or Glasses, Hx Glaucoma Neurological History: Reports: Other Neuro Impairments/Disorders - FIBROMYALGIA Psychiatric History: Reports: Hx Anxiety - TAKES RX, Hx Depression - Cancer History Hx Chemotherapy: No Hx Radiation Therapy: No - Surgical History Surgery Procedure, Year, and Place: TONSILLECTOMY 1964 [facility] [place]. RIGHT KNEE MENISCUS B[facility]EN[facility]. BACK SURG B[facility]ICE. C-SECTIONS 1973 & 1977 [facility]. UMBILICAL HERNIA X 2 [facility] Hx Anesthesia Reactions: Yes - TOOK A LONG TIME TO WAKE UP POST UMBILICAL SURGERY - Immunization History Immunizations Up to Date: Yes Infectious Disease History: No Infectious Disease History: Denies: Traveled Outside the [place] in Last 30 Days - Family History Known Family History: Positive: Diabetes, Other - Cancer - Social History Alcohol Use: None Substance Use Type: Reports: None Smoking Status (MU): Heavy Every Day Tobacco Smoker Type: Cigarettes Amount Used/How Often: 1 PPD FOR 48 YRS Length of Time of Smoking/Using Tobacco: 48 YRS Have You Smoked in the Last Year: Yes Review of Systems Positive: Chills, Fatigue. Negative: Fever Negative: Palpitations, Chest Pain Negative: Shortness Of Breath Positive: Abdominal Pain, Vomiting, Diarrhea, Nausea, Other - Decreased appetite Positive: Weakness All Other Systems Reviewed And Are Negative: Yes Physical Exam - Summary Physical Exam Summary: GENERAL: Patient is a well developed and nourished F who is lying comfortable in the stretcher. Patient is not in any acute respiratory distress. HEAD AND FACE: Normocephalic EYES: PERRLA, EOMI x 2. EARS: Hearing grossly intact. MOUTH: Oropharynx within normal limits. NECK: Supple, trachea is midline, no adenopathy, no JVD, no carotid bruit. CHEST: Symmetric, no tenderness at palpation LUNGS: Clear to auscultation bilaterally. No wheezing or crackles. CVS: Regular rate and rhythm, S1 and S2 present, no murmurs or gallops appreciated. ABDOMEN: Distended. Bowel sounds are normal. No abdominal abnormal pulsations. Reducible and non-tender ventral hernia. EXTREMITIES: Full ROM in all major joints, no edema, no cyanosis or clubbing. NEURO: Alert and oriented x 3. No acute neurological deficits. Speech is normal and follows commands. SKIN: Dry and warm Triage Information Reviewed: Yes Vital Signs On Initial Exam: Initial Vitals Temp Pulse Resp BP Pulse Ox 98.5 F 73 20 131/63 92 07/09/18 15:56 07/09/18 15:56 07/09/18 15:56 07/09/18 15:56 07/09/18 15:56 Vital Signs Reviewed: Yes Diagnostics - Vital Signs Vital Signs Temp Pulse Resp BP Pulse Ox 07/09/18 15:56 98.5 F 73 20 131/63 92 - Laboratory Lab Results: Lab Results 07/09/18 07/09/18 07/09/18 Range/Units 16:39 16:39 16:39 WBC 10.4 (3.5-10.8) 10^3/ul RBC 4.30 (4.00-5.40) 10^6/ul Hgb 12.1 (12.0-16.0) g/dl Hct 36 (35-47) % MCV 84 (80-97) fL MCH 28 (27-31) pg MCHC 34 (31-36) g/dl RDW 15 (10.5-15) % Plt Count 257 (150-450) 10^3/ul MPV 8.2 (7.4-10.4) um3 Neut % (Auto) 75.5 (38-83) % Lymph % (Auto) 17.6 L (25-47) % [place] % (Auto) 6.1 (0-7) % Eos % (Auto) 0 (0-6) % Baso % (Auto) 0.8 (0-2) % Absolute Neuts (auto) 7.8 H (1.5-7.7) 10^3/ul Absolute Lymphs (auto) 1.8 (1.0-4.8) 10^3/ul Absolute Monos (auto) 0.6 (0-0.8) 10^3/ul Absolute Eos (auto) 0 (0-0.6) 10^3/ul Absolute Basos (auto) 0.1 (0-0.2) 10^3/ul Absolute Nucleated RBC 0 10^3/ul Nucleated RBC % 0.1 INR (Anticoag Therapy) 1.16 H (0.77-1.02) APTT 37.8 H (26.0-36.3) seconds Sodium 139 (135-145) mmol/L Potassium 3.3 L (3.5-5.0) mmol/L Chloride 103 (101-111) mmol/L Carbon Dioxide 30 (22-32) mmol/L Anion Gap 6 (2-11) mmol/L BUN 6 (6-24) mg/dL Creatinine 0.69 (0.51-0.95) mg/dL Est GFR ( Amer) 104.0 (>60) Est GFR (Non-Af Amer) 85.9 (>60) BUN/Creatinine Ratio 8.7 (8-20) Glucose 257 H (70-100) mg/dL Lactic Acid (0.5-2.0) mmol/L Calcium 8.7 (8.6-10.3) mg/dL Magnesium 1.4 L (1.9-2.7) mg/dL Total Bilirubin 0.40 (0.2-1.0) mg/dL AST 18 (13-39) U/L ALT 12 (7-52) U/L Alkaline Phosphatase 95 (34-104) U/L Troponin I 0.07 H* (<0.04) ng/mL Total Protein 7.0 (6.4-8.9) g/dL Albumin 3.3 (3.2-5.2) g/dL Globulin 3.7 (2-4) g/dL Albumin/Globulin Ratio 0.9 L (1-3) Lipase 15 (11.0-82.0) U/L 07/09/18 Range/Units 16:39 WBC (3.5-10.8) 10^3/ul RBC (4.00-5.40) 10^6/ul Hgb (12.0-16.0) g/dl Hct (35-47) % MCV (80-97) fL MCH (27-31) pg MCHC (31-36) g/dl RDW (10.5-15) % Plt Count (150-450) 10^3/ul MPV (7.4-10.4) um3 Neut % (Auto) (38-83) % Lymph % (Auto) (25-47) % [place] % (Auto) (0-7) % Eos % (Auto) (0-6) % Baso % (Auto) (0-2) % Absolute Neuts (auto) (1.5-7.7) 10^3/ul Absolute Lymphs (auto) (1.0-4.8) 10^3/ul Absolute Monos (auto) (0-0.8) 10^3/ul Absolute Eos (auto) (0-0.6) 10^3/ul Absolute Basos (auto) (0-0.2) 10^3/ul Absolute Nucleated RBC 10^3/ul Nucleated RBC % INR (Anticoag Therapy) (0.77-1.02) APTT (26.0-36.3) seconds Sodium (135-145) mmol/L Potassium (3.5-5.0) mmol/L Chloride (101-111) mmol/L Carbon Dioxide (22-32) mmol/L Anion Gap (2-11) mmol/L BUN (6-24) mg/dL Creatinine (0.51-0.95) mg/dL Est GFR ( Amer) (>60) Est GFR (Non-Af Amer) (>60) BUN/Creatinine Ratio (8-20) Glucose (70-100) mg/dL Lactic Acid 1.6 (0.5-2.0) mmol/L Calcium (8.6-10.3) mg/dL Magnesium (1.9-2.7) mg/dL Total Bilirubin (0.2-1.0) mg/dL AST (13-39) U/L ALT (7-52) U/L Alkaline Phosphatase (34-104) U/L Troponin I (<0.04) ng/mL Total Protein (6.4-8.9) g/dL Albumin (3.2-5.2) g/dL Globulin (2-4) g/dL Albumin/Globulin Ratio (1-3) Lipase (11.0-82.0) U/L Result Diagrams: 07/10/18 05:50 07/10/18 05:50 Lab Statement: Any lab studies that have been ordered have been reviewed, and results considered in the medical decision making process. - EKG 16:32 Cardiac Rate: NL - 71 bpm EKG Rhythm: Sinus Rhythm EKG Interpretation: Q waves in inferior and anterior leads GIGU Course/Dx - Course Course Of Treatment: Pt is a 63 y/o female who presents to [facility] c/o N/V/D since this morning. Pt has breast cancer and was referred here by Dr. Mann, with her last chemotherapy treatment 2.5 weeks ago. She also c/o weakness, abdominal pain, chills, fatigue, and decreased appetite. She denies any fever, SOB, CP, or palpitations. The diarrhea is described as watery and the pain is described as 4/10 and aching. Pt states eating made her feel better. Her last BM was at 2 PM today. PSHx 2 umbilical hernias. Pt was recently on antibiotics, and denies any history of C. Diff. or CHF. She also complains her port area is painful. A physical exam revealed distended abdomen, and Reducible and non- tender ventral hernia. An EKG revealed normal rate of 71 bpm, and Q waves in inferior and anterior leads. Final dx is nausea, vomiting, and diarrhea. Dr. Lopes recommends admitting the patient. Case discussed with hospitalist. I discussed results with patient. The patient agrees with this plan. - Diagnoses Provider Diagnoses: Nausea vomiting and diarrhea Discharge - Sign-Out/Discharge Documenting (check all that apply): Patient Departure - Admit, Sign-Out Patient Signing out patient TO: Clyde Bosch - Discharge Plan Condition: Stable Disposition: ADMITTED TO [facility] - Billing Disposition and Condition Condition: STABLE Disposition: Admitted to [facility] - Attestation Statements Document Initiated by Scribe: Yes Documenting Scribe: Cynthia Fischer Provider For Whom Jorge Luisibcynthia is Documenting (Include Credential): Francine Contreras MD Scribe Attestation: Cynthia Haile, scribed for Francine Contreras MD on 07/13/18 at 1730. Scribe Documentation Reviewed: Yes Provider Attestation: The documentation as recorded by the jorge luisibCynthia marie accurately reflects the service I personally performed and the decisions made by me, Francine Contreras MD
[2018-07-09 20:21] LABS: Urine Appearance Cloudy; Urine Blood 1+ (Negative); Urine Color Yellow; Urine Ketones Negative (Negative); Urine Protein 2+(100 mg/dL) (Negative); Urine Red Blood Cell 1+(3-5/hpf) (Absent); Urine Urobilinogen Positive (Negative); Urine White Blood Cell 1+(6-10/hpf) (Absent)
[2018-07-09] MEDS ORDERED: Dextrose 50% Syringe 50 ML* 25 GM/50 ML SYRINGE IV PUSH PRN (21:10)
[2018-07-09] MEDS ORDERED: Albuterol 2.5 MG/3 ML NEB.SOL* (0.083%) INH PRN (21:10)
[2018-07-09] MEDS ORDERED: Ondansetron INJ* 2 MG/ML VIAL IV PRN (21:10)
[2018-07-09] MEDS ORDERED: Acetaminophen TAB* 325 MG PO PRN (21:10)
[2018-07-09] MEDS ORDERED: Magnesium Sulfate 2 GM IV* 2 GM/50 ML BAG IVPB ONE (21:15)
[2018-07-09] MEDS ORDERED: Iohexol 350* (CONTRAST) 500 ML MDV IV ONE (21:34)
--- NOTE | 2018-07-09 22:36 | RAD ---
EXAM: CT Angiography Chest With Intravenous Contrast CLINICAL HISTORY: 63 years old, female; Pain; Chest pressure; Additional info: Copd, elevated trop ? pe TECHNIQUE: Axial computed tomographic angiography images of the chest with intravenous contrast using pulmonary embolism protocol. All CT scans at this facility use at least one of these dose optimization techniques: automated exposure control; mA and/or kV adjustment per patient size (includes targeted exams where dose is matched to clinical indication); or iterative reconstruction. 3D and MIP reconstructed images were created and reviewed. Coronal and sagittal reformatted images were created and reviewed. CONTRAST: 84 mL of omnipaque 350 administered intravenously. COMPARISON: DX - CXR CHEST PA LAT 2 VWS 2018-06-26 07:37 FINDINGS: Pulmonary arteries: Pulmonary arteries are well opacified to the subsegmental branches. Normal caliber main pulmonary artery. No filling defects throughout the pulmonary artery tree. Aorta: The aorta demonstrates mild atherosclerotic calcification. Lungs: Subsegmental atelectasis posterior basal segment left lower lobe. No pulmonary nodules, masses, or consolidations. No bronchiectasis, peribronchial thickening, or luminal defects. Pleural space: Normal. No significant effusion. No pneumothorax. Heart: Normal. No cardiomegaly. No significant pericardial effusion. No evidence of RV dysfunction. Bones/joints: The thoracic spine demonstrates moderate degenerative changes at multiple levels. No fractures. No suspicious bone lesions. No dislocation. Soft tissues: Normal. Lymph nodes: Normal. No enlarged lymph nodes. Tubes, lines and devices: Left chest infusion port terminates at the cavoatrial junction. IMPRESSION: No pulmonary emboli. No additional findings to correlate with patient's symptomatology.
--- NOTE | 2018-07-09 22:44 | HP ---
CC: Ruth Ledezma NP; Dr. Mann * HISTORY AND PHYSICAL: DATE OF ADMISSION: 07/09/18 PRIMARY CARE PROVIDER: Ruth Ledezma NP ATTENDING PHYSICIAN WHILE IN THE HOSPITAL: Mahad Bai MD * (report dictated by Kieran Juan NP) CHIEF COMPLAINT: 1. Nausea. 2. Vomiting. 3. Diarrhea. HISTORY OF PRESENT ILLNESS: Mrs. Hillman is a 63-year-old female patient with multiple medical problems. She has a history of diabetes, COPD, depression , GERD, hyperlipidemia, hypertension, obesity, arthritis, neuropathy, JESSE, restless leg syndrome, and history of breast cancer, undergoing chemotherapy. She had chemotherapy about a week ago. She has noticed that today and yesterday and this is very similar with her last chemotherapy episode, she started developing lower abdominal cramping, nausea, vomiting, and diarrhea. She was concerned because she just could not keep anything down in the last 24 hours, so she came into the ER. At the time she got to the ER, she received fluids, was feeling better. In addition to this, she was also complaining that her restless legs were acting out. This would not sit still. She said they were jumping all over the bed. She said that the medications that she normally takes for this have not been helping. She had not been feeling well. She also did admit to us that 2 days ago she had some chest pressure, tightness and/or pain in her chest. She was not really able to elaborate as to what it felt like , but she does state that she has some discomfort up there. She denied any shortness of breath. She denies any chest pressure now. She denies having any shortness of breath now and states that she just is still feeling somewhat nauseous. She came into the ED today. She had labs checked. It was noted that her electrolytes were ordered for mag and potassium. In addition to this, it was noted that her troponin was mildly elevated. Because of these findings, we were asked to evaluate for admission. PAST MEDICAL HISTORY: Significant for: 1. Diabetes. 2. COPD. 3. Depression. 4. GERD. 5. Hyperlipidemia. 6. Hypertension. 7. Obesity. 8. Arthritis. 9. Neuropathy. 10. JESSE. 11. Breast cancer. 12. Restless leg syndrome. 13. Hypothyroidism. PAST SURGICAL HISTORY: 1. She has had x2. 2. Laminectomy. 3. Hernia repair x2. 4. Lumpectomy. MEDICATIONS: Home medications include: 1. Combivent 1 puff inhaled 4 times a day as needed. 2. Losartan/hydrochlorothiazide 1 tablet daily. 3. Lisinopril sliding scale a.c., h.s. 4. TriCor 160 mg p.o. daily. 5. Compazine 10 mg p.o. every 6 hours as needed. 6. Protonix 40 mg daily. 7. Zofran 4 mg every 4 hours as needed. 8. Simvastatin 40 mg p.o. daily. 9. Lyrica 100 mg p.o. b.i.d. 10. Janumet 1 tablet p.o. b.i.d. 11. Diflucan 200 mg p.o. daily. 12. Zantac 150 mg p.o. q.p.m. 13. Morphine ER 30 mg p.o. every 12 hours. 14. Morphine sulfate 15 mg every 4 hours as needed. 15. Cymbalta 60 mg daily. 16. Synthroid 50 mcg p.o. daily. ALLERGIES TO MEDICATIONS: Include KEFLEX. In addition to this also include NIACIN. FAMILY HISTORY: Her mother had cancer. She does not know what her father of. SOCIAL HISTORY: She is a pack a day smoker. She smoked for about 50+ years. She does not drink alcohol. She lives with her granddaughter. Her surrogate decision maker is her daughter. REVIEW OF SYSTEMS: There is no documented fever. She denies having any significant weight change. There is no double vision. She denies having any rhinorrhea. There is no sore throat. No thyroid enlargement. She did admit to chest pressure 2 days ago, but none now. She did not quantify it. She denied having any recent exertional chest discomfort. She denies having any shortness of breath. She denied any orthopnea. No nocturnal dyspnea. There was no abdominal pain. There is no nausea, there is no vomiting. No dysuria, no frequency. No seizure. There was no loss of consciousness. No pruritus and no skin ulcerations. Review of 14 systems was completed, all others negative. PHYSICAL EXAMINATION GENERAL: At this time, Mrs. Hillman is a 63-year-old female patient. She is sitting in the ED stretcher. She does not appear to be in any acute distress. She is morbidly obese. She appears to be older than stated age. VITAL SIGNS: Blood pressure 139/56, heart rate 78, respirations 20, O2 sat 93% on room air, temperature 98.5. HEENT: Head: Atraumatic, normocephalic. Eyes: EOMs are intact. Sclerae are anicteric and not pale. Throat: Oral mucosa appears to be moist. No oropharyngeal erythema. NECK: Supple. LUNGS: Diminished in the bases. No wheezes, rales, or rhonchi. HEART: Sounds S1, S2. She had a regular rate and rhythm. No murmurs, rubs, or gallops. ABDOMEN: Soft, flat, nontender. Bowel sounds are present. EXTREMITIES: Pulses were 2+ throughout. 5/5 strength. NEUROLOGIC: She is awake. She is alert. She is oriented x3. Her tongue is midline. Her assurance assistant were equal. She had no gross focal deficits. SKIN: Grossly intact. DIAGNOSTIC STUDIES/LAB DATA: WBC of 10.4, RBC of 4.30, hemoglobin of 12.1, hematocrit of 36, platelet count of 257. INR 1.16. PTT of 37.8. Sodium 139, potassium 3.3, chloride 103, bicarb 30, BUN 6, creatinine 0.69, glucose 257. Lactate 1.6. Calcium 8.7. Mag 1.4. Total bili 0.4, AST 18, ALT 12, alk phos 95. Troponin initially was 0.07, repeat was 0.06. Last troponin was checked in 2011. Albumin of 3.3. She had a urine obtained, which showed 2+ protein, 1+ blood, positive urobilinogen, 1+ wbc, 1+ rbc, 1+ urine glucose. She had an EKG obtained today, which showed normal sinus rhythm, rate of 71, no ST elevations or T wave inversions. It is reviewed with the previous EKG, again , this was from 6 years ago, appears to be similar. Old medical records were reviewed. ASSESSMENT AND PLAN: Mrs. Hillman is a 63-year-old female patient with multiple medical problems coming into the ED today with complaints of nausea, vomiting, and diarrhea. She states she had chest pain 2 days ago and not now. It was found that she had an elevated troponin with initial labs today. We were asked to evaluate and consult. Recommendations at this point are: 1. Elevated troponin. Etiology is unclear. I do note that her O2 sats are kind of on the lower side at 90 to 92%. Certainly, she is at risk for PE. I think we need to get a CTA of the chest, which I am going to order. Also, we will order an echo. She is at risk for coronary artery disease. She did have chest pain 2 days ago. We will get the echo. We will cycle the troponins. Place her on telemetry. We may need to consider getting a stress test or possible cardiology consult, but I will get 1 more troponin and we will continue to monitor this. I will start her on an aspirin for the time being. She again is not having any active chest pain currently. An EKG appears to be stable. We will get EKG in the morning. We will continue to follow. 2. Diabetes. Continue lispro sliding scale. 3. Chronic obstructive pulmonary disease. I have ordered p.r.n. albuterol. Continue meds as prescribed. 4. Depression. Continue with supportive care. 5. History of breast cancer. She can follow with her primary oncology team. She has concerns about continuing her chemo, but she can discuss that with Dr. Mann. 6. Gastroesophageal reflux disease. Continue PPI therapy. 7. History of restless leg syndrome. Continue her current medical regimen. She states she takes morphine for this. We will continue for that. 8. Hypokalemia. We will replace this. 9. Hypomagnesemia. We will replace her magnesium. 10. Neuropathy. Continue her Lyrica. 11. Obstructive sleep apnea. I have ordered CPAP for her. 12. History of arthritis. I have ordered p.r.n. Tylenol. We will continue her pain meds as well. 13. Hyperlipidemia. Continue meds as prescribed. She is on a statin therapy. 14. Hypertension. Continue meds as prescribed. 15. DVT prophylaxis. She is at high risk. She will be placed on heparin subcu. 16. Code status. She is a full code. 17. Fluids, electrolytes, and nutrition. She can have a consistent carb diet. TIME SPENT: On admission was 60 minutes, greater than half the time was spent face- to-face with the patient obtaining my history and physical; other half time was spent going over the plan of care with the patient and implementing the plan of care. I did discuss the plan of care with my attending, Dr. Bai; he is in agreement. KIERAN JUAN NP [id number]/[facility] #: [id number] KYLE
[2018-07-09] MEDS: Aspirin EC TAB* 81 MG TAB.EC PO SCH (22:45)
[2018-07-09] MEDS: Heparin VIAL(*) 5000 UNITS/ML VIAL (FIVE THOUSAND) SUBCUT SCH (22:45)
[2018-07-09] MEDS: Morphine ORAL.SOLN 10 mg* 2 MG/ML UDC 5 ml PO PRN (22:55)
[2018-07-10] MEDS: Morphine ORAL.SOLN 10 mg* 2 MG/ML UDC 5 ml PO PRN ×2 (04:23→09:02)
[2018-07-10 06:00] LABS: ABS Basophils 0.1 10^3/ul (0-0.2); ABS Eosinophils 0 10^3/ul (0-0.6); ABS Lymphocytes 2.2 10^3/ul (1.0-4.8); ABS Monocytes 0.7 10^3/ul (0-0.8); ABS Neutrophils 6.7 10^3/ul (1.5-7.7); ABS Nucleated RBC 0 10^3/ul; Eosinophil % 0.2 % (0-6); Hematocrit 34 % (35-47); Hemoglobin 11.6 g/dl (12.0-16.0); Lymphocyte % 22.5 % (25-47); Mean Corpuscular HGB Conc 34 g/dl (31-36); Mean Corpuscular Hemoglobin 28 pg (27-31); Mean Corpuscular Volume 83 fL (80-97); Mean Platelet Volume 8.1 um3 (7.4-10.4); Nucleated Red Blood Cells % 0.1; Platelet Count 241 10^3/ul (150-450); Red Blood Count 4.13 10^6/ul (4.00-5.40); Red Cell Distribution Width 16 % (10.5-15); White Blood Count 9.8 10^3/ul (3.5-10.8)
[2018-07-10] MEDS ORDERED: Levothyroxine TAB* 50 MCG TAB PO SCH (06:00)
[2018-07-10 06:09] LABS: INR 1.12 (0.77-1.02)
[2018-07-10] MEDS: Heparin VIAL(*) 5000 UNITS/ML VIAL (FIVE THOUSAND) SUBCUT SCH (06:11)
[2018-07-10 06:17] LABS: EGFR Non-African American 92.1 (>60)
--- NOTE | 2018-07-10 07:51 | RAD ---
INDICATION: Shortness of breath in a patient with COPD COMPARISON: Most using a comparison chest x-ray June 26, 2018 TECHNIQUE: Single AP portable view of the chest was obtained. FINDINGS: Image quality is compromised due to the relative inferiority of a portable chest x-ray. There is a left internal jugular vein Mediport. The tip has retracted to the upper SVC relative to prior chest x-rays. The heart and mediastinum exhibit normal size and contour. The lungs are grossly clear. There is no evidence of a large pleural effusion. Visualized bones are normal for the patient's age. IMPRESSION: No radiographic evidence for acute cardiopulmonary abnormality on this portable chest x-ray. R1
[2018-07-10] MEDS ORDERED: Perflutren Lipid Microsphere* 3 ML VIAL ONE (08:05)
[2018-07-10] MEDS ORDERED: DULoxetine DR CAP* 60 MG CAP.DR PO SCH (09:00)
[2018-07-10] MEDS ORDERED: Morphine TAB Extended Release (*) 30 MG TAB.ER PO SCH (09:00)
[2018-07-10] MEDS ORDERED: Atorvastatin* 20 MG TAB PO SCH (09:00)
[2018-07-10] MEDS ORDERED: Pregabalin CAP(*) 100 MG PO SCH (09:00)
[2018-07-10] MEDS ORDERED: Fluconazole 100 MG TAB* TAB PO SCH (09:00)
[2018-07-10] MEDS ORDERED: Hydrochlorothiazide TAB* 25 MG PO SCH (09:00)
[2018-07-10] MEDS ORDERED: Losartan TAB* 25 MG PO SCH (09:00)
[2018-07-10] MEDS ORDERED: Fenofibrate(NF) 160 MG TAB PO SCH (09:00)
[2018-07-10] MEDS: Aspirin EC TAB* 81 MG TAB.EC PO SCH (09:01)
[2018-07-10] MEDS: Insulin LISPRO* 1 UNITS UNIT SUBCUT SCH ×2 (09:01→12:52)
--- NOTE | 2018-07-10 10:13 | ECHO ---
Patient: LEONID PENA [facility] Rec#: [id number] : 1955 Date: 07/10/2018 Age: 63y Height: 155 cm / 61.0 in Weight: 113.85 kg / 250.9 lbs Sex: F BSA: 2.08 Room#: 453 Admit Date#: 07/09/2018 Type: Inpatient Referring: Kieran Juan NP Reading: Reynaldo Flowers MD Coil Inspector: Katherine Slade RDCS CC: Ruth Ledezma FREE LANCE ARTIST Transthoracic Echocardiogram Indication: Shortness of breath BP: 150/61 HR: 69 Rhythm: NSR Findings History: DM, COPD, HLD, HTN, morbid obesity, JESSE, breast cancer with chemotherapy, smoker. Technical Comments: The study is technically limited due to patient body habitus. Completed at 0900. Left Ventricle: The left ventricular chamber size is normal. Mild to moderate concentric left ventricular hypertrophy is observed. There is normal left ventricular systolic function. The estimated ejection fraction is 60-65%. There is no consistent Doppler evidence of clinically significant diastolic dysfunction. Left Atrium: The left atrium is mildly dilated. Right Ventricle: The right ventricle wall thickness is mildly increased. The right ventricle is mildly dilated. The right ventricular global systolic function is normal. Right Atrium: The right atrium is moderately dilated. Aortic Valve: The aortic valve structure is not well visualized. There is no evidence of aortic regurgitation. There is no evidence of aortic stenosis. Mitral Valve: The mitral valve leaflets are mildly thickened. There is a trace of mitral regurgitation. There is no evidence of mitral stenosis. Tricuspid Valve: The tricuspid valve structure is not well visualized. Unable to estimate the right ventricular systolic pressure. There is no tricuspid stenosis. Pulmonic Valve: The pulmonic valve structure is not well visualized. There is no pulmonic stenosis. Pericardium: There is no significant pericardial effusion. A pericardial fat pad is visualized. Aorta: There is no dilatation of the ascending aorta. The aortic arch is not well visualized. The aortic root is normal in size. Pulmonary Artery: The main pulmonary artery is not well visualized. Venous: The inferior vena cava is dilated. There is a greater than 50% respiratory change in the inferior vena cava dimension. Contrast: Definity was used to optimize study. 4 mL of diluted Definity was utilized. Intravenous contrast was used to enhance endocardial border definition. Summary: There was not any prior study for comparison. Conclusions The study is technically limited due to patient body habitus. Completed at 0900. There is normal left ventricular systolic function. The estimated ejection fraction is 60-65%. The right ventricular global systolic function is normal. There is no evidence of aortic stenosis. There is a trace of mitral regurgitation. The tricuspid valve structure is not well visualized. Unable to estimate the right ventricular systolic pressure. There is no significant pericardial effusion. Measurements Name Value Normal Range RVIDd (AP) 2D 3.8 cm (0.9 - 2.6) RVDdMajor (2D) 4.5 cm (2.2 - 4.4) RVAW (2D) 0.8 cm (0.2 - 0.5) RAd ISD 4CH 5.7 cm (3.4 - 4.9) RA (A4C)W 5.3 cm (2.9 - 4.6) IVSd (2D) 1.4 cm (0.6 - 1) LVPWd (2D) 1.2 cm (0.6 - 1) LVIDd (2D) 5 cm (3.6 - 5.4) LVIDs (2D) 3.7 cm - LV FS (2D) 26 % (25 - 45) Aortic Annulus 1.7 cm (1.4 - 2.6) Ao root diameter (2D) 2.8 cm (2.1 - 3.5) Ascending Ao 3 cm (2.1 - 3.4) LA dimension (AP) 2D 4.6 cm (2.3 - 3.8) LAd ISD 4CH 5.9 cm (2.9 - 5.3) LA ISD 4CH W 5.2 cm (2.5 - 4.5) Name Value Normal Range LA ESV BP (A/L) index 40 ml/m2 - Name Value Normal Range MV E-wave Vmax 0.8 m/sec - MV deceleration time 239 msec - MV A-wave Vmax 1 m/sec - MV E:A ratio 0.8 ratio - LV septal e' Vmax 0.09 m/sec - LV lateral e' Vmax 0.09 m/sec - LV E:e' septal ratio 8.89 ratio - LV E:e' lateral ratio 8.89 ratio - Name Value Normal Range AV Vmax 1 m/sec - AV VTI 25 cm - AV peak gradient 4 mmHg - AV mean gradient 2 mmHg - LVOT Vmax 0.8 m/sec - LVOT VTI 21.5 cm - LVOT peak gradient 3 mmHg - LVOT mean gradient 1 mmHg - MARY ELLEN Vmax 0.9 m/sec - Name Value Normal Range IVC diameter 2.1 cm - Name Value Normal Range PV Vmax 1.33 m/sec - PV peak gradient 7 mmHg -
[2018-07-10 11:43] VITALS: BP 129/57
[2018-07-10] MEDS ORDERED: Potassium Chlor TAB* 20 MEQ TAB.ER PO ONE (12:27)
[2018-07-10] MEDS ORDERED: Famotidine TAB* 20 MG PO SCH (18:00)
[2018-07-10] MEDS ORDERED: Omeprazole CAP* 20 MG PO SCH (18:00)
--- NOTE | 2018-07-11 01:43 | DS ---
CC: Ruth Ledezma NP; Dr. Breezy Mann. * DISCHARGE SUMMARY: DATE OF ADMISSION: 07/09/18 DATE OF DISCHARGE: 07/10/18 PRIMARY CARE PROVIDER: Ruth Ledezma NP PRIMARY ONCOLOGIST: Dr. Breezy Mann. ATTENDING PHYSICIAN: Dr. Luann Lopes.* (DICTATED BY GINA SHORT) DISCHARGING PROVIDER: GINA Short PRIMARY DISCHARGE DIAGNOSES: 1. Nausea and diarrhea. 2. Demand ischemia. 3. Hyperglycemia secondary to poorly controlled diabetes. SECONDARY DISCHARGE DIAGNOSES: 1. Breast cancer - status post lumpectomy, 2 cm tumor, triple negative status post cycle 1 adjuvant chemotherapy. 2. Obesity with a BMI of 48. DISCHARGE MEDICATIONS: 1. DuoNeb 1 puff inhaled 4 times daily as needed for shortness of breath. 2. Cymbalta 60 mg p.o. daily. 3. TriCor 160 mg p.o. daily. 4. Levothyroxine 50 mcg p.o. daily. 5. Losartan/hydrochlorothiazide 1 tablet p.o. daily. 6. Morphine sulfate extended release 30 mg p.o. q. 12 hours. 7. Morphine sulfate immediate release 15 mg p.o. q. 4 hours as needed for pain. 8. Zofran 4 mg p.o. q. 4 hours as needed for nausea. 9. Protonix 40 mg p.o. daily. 10. Lyrica 100 mg p.o. twice daily. 11. Compazine 10 mg p.o. q. 6 hours as needed for nausea and vomiting. 12. Zantac 150 mg p.o. daily. 13. Simvastatin 40 mg p.o. daily. 14. Januvia/metformin 1 tablet p.o. twice daily. 15. Toujeo 300 units per mL 15 units subcu daily. Medication changes: 1. Increased Toujeo from 12 units daily to 15 units daily. HOSPITAL IMAGIN. Chest x-ray shows no acute cardiopulmonary disease. 2. CTA of the chest shows no PE or other pathology. 3. EKG shows a normal sinus rhythm without acute ischemic changes. HOSPITAL COURSE: This is a 63-year-old female with multiple comorbidities, who received cycle 1 of adjuvant chemotherapy 06/19/18. Shortly after treatment administration, the patient felt quite poorly and was hospitalized due to generalized malaise, nausea, vomiting, and some mild confusion. She recovered from that episode rather quickly and had been doing quite well at home over the last couple of weeks until a few days ago when she developed acute diarrhea. She had multiple episodes of watery diarrhea in the 24-hour period and following this was quite dizzy and persistently nauseous. She was afebrile. She blames the diarrhea on a graduation libertarian that she went to and believes that she simply overate. Labs when she reached the emergency department were significant for mild hypokalemia with potassium of 3.3, glucose of 257, magnesium of 1.4, and elevated troponin to 0.06. The patient was subsequently admitted and hydrated with serial troponins remaining flat at 0.07 and 0.06 on repeat without acute ischemic changes on EKG or complaints of chest pain. The patient's magnesium and potassium were repleted and her diarrhea and nausea resolved in the emergency department. The patient was feeling slightly drowsy or foggy the day of discharge, but otherwise felt that she was back to her baseline. Regarding her glucose control, she reports that her glucose is consistently greater than 200 at home and under much better control here in the hospital. She is taking Toujeo, the concentrated insulin at 300 units per mL, currently taking 12 units daily. DISPOSITION AND FOLLOWUP PLAN: The patient is being discharged to home. Recommend increasing her Toujeo to 15 units daily. Her acute episode of diarrhea and nausea have resolved. She is scheduled for chemotherapy next week 07/17/18 and is encouraged to keep this appointment. GINA SHORT [id number]/[facility] #: [id number] [facility]AMPUSVasyl
== END 2018-07-10 16:16 | disposition home or self-care (01) ==
LOC: ED 15:54 → MEDTELE 22:12
PROVIDERS: ADMIT Nurse Practitioner Family; ATTEND Internal Medicine Hematology & Oncology
DX: R11.2 Nausea with vomiting, unspecified (principal); I24.8 Other forms of acute ischemic heart disease; E11.65 Type 2 diabetes mellitus with hyperglycemia; R19.7 Diarrhea, unspecified; E11.9 Type 2 diabetes mellitus without complications; I10 Essential (primary) hypertension; K21.9 Gastro-esophageal reflux disease without esophagitis; F17.210 Nicotine dependence, cigarettes, uncomplicated; E66.9 Obesity, unspecified; Z68.42 Body mass index [BMI] 45.0-49.9, adult; Z85.3 Personal history of malignant neoplasm of breast
CPT/HCPCS: 36415; 71045; 71275; 80048; 80053; 80061; 81003; 81015; 83036; 83605; 83690; 83735; 84484; 85025; 85610; 85730; 87086; 93005; 93306; 94660; 96365; 99283; A9270-GY; C8929; G0378; J1644; J2405; J3475; Q9967

== ENCOUNTER 2018-07-23 16:01 | Emergency (ER) | payer MEDICARE, MEDICAID ==
--- OUTSIDE RECORDS SUMMARY | 2018-07-23 16:45 | XMS REPORT ---
:1955 External Reference #:[id number] Author Organization [facility] Address [address] [place] [address] [place] [address] Phone [phone] Care Team Providers Name Role Phone Ruth Ledezma N.P. Primary Care Physician Unavailable Payers Type Date Identification Numbers Payment Provider Subscriber Medicare Primary Policy Number: [id number] Medicare Fouzia Hillman PayID: [id number] [address] [place] [address] [employer] [place] Policy Number: [id number] Medicaid Fouzia Hillman Group Name: 1 1 [address] PayID: [id number] [place] [address] Commercial Effective: 2011 Policy Number: [id number] Alphonso Hillman Expires: 2017 PayID: [id number] [address] [place] [address] Problems Description No Information Family History Date [...] Test Result H/L Range Note Laboratory test 06/19/2018 Point of Care 254 mg/dL High 70-100 1 finding Glucose Inr/Protime 06/19/2018 Inr 1.06 High 0.77-1.02 Laboratory test 06/19/2018 Partial Thrombo 35.6 seconds 26.0-36.3 finding Time PTT Platelet Count 06/19/2018 Platelet Count 199 10^3/uL 150-450 Mean Platelet Volume 9.2 um3 7.4-10.4 Laboratory test 05/22/2018 Point of Care Glucose 287 mg/dL High 70-100 2 finding Laboratory test 05/22/2018 Point of Care Glucose 295 mg/dL High 70-100 3 finding Laboratory test 05/22/2018 Point of Care Glucose 289 mg/dL High 70-100 4 finding Laboratory test 05/22/2018 Surgical Pathology SEE RESULT BELOW 5 finding Laboratory test 05/22/2018 Point of Care Glucose 246 mg/dL High 70-100 6 finding Laboratory test 05/22/2018 Point of Care Glucose 266 mg/dL High 70-100 7 finding Laboratory test 05/22/2018 Point of Care Glucose 283 mg/dL High 70-100 8 finding 1 Operations Intelligence Superintendent: [id number] Operations Intelligence Superintendent: [id number] Operations Intelligence Superintendent: [id number] Operations Intelligence Superintendent: [id number] 5 SEE RESULT BELOW Name: FOUZIA HILLMAN Angelica : [address]: Fermin Yeager MD Acct: [id number] Unit: [id number] AGE: 63 Location: SDS Re05/22/18 SEX: F Status: DEP SDC SPEC: [id number] CHAUNCEY: 05/22/18-[address] [facility] [address]: Fermin Yeager MD REQ: [id number] RECD: 05/22/18-6158 STATUS: SOUT _ ORDERED: LEVEL 4, LEVEL 5/3, IMMUNO-FIRST, IMMUNO-QUANT/3 Addendum: Per CAP Guidelines hormone receptor studies for ER/SD and HER-2 are repeated on block 1G with appropriate controls. ER negative SD negative HER-2 negative (0+) Addendum Signed (signature on file) Say Bentley MD 1214 FINAL DIAGNOSIS 1. Breast, right, needle localization excision: -- Invasive ductal adenocarcinoma of breast, with: Size: 20 mm. Overall [place] grade: 3/3 (9/9 points). Tubule formation: 3. [...] mm of the mid anterior margin. ER, SD, Her2/hai by immunohistochemistry with appropriate controls: CONTINUED ON NEXT PAGE DEPARTMENT OF PATHOLOGY, [address] [place] [address] Say Bentley M.D. Director [facility] # [id number] RUN DATE: 05/28/18 [facility] LAB LIVE PAGE 2 Patient: FOUZIA HILLMAN [id number] (Continued) FINAL DIAGNOSIS (Continued) ER: Negative. See comment. SD: Negative. See comment. Her2/hai: Negative (1+). See [...] hormone receptor studies are from prior biopsy [id number]. Per current CAP guidelines these studies will [...] CONTINUED ON NEXT PAGE DEPARTMENT OF PATHOLOGY, [address] [place] [address] Say Bentley M.D. Director [facility] # [id number] RUN DATE: 05/28/18 [facility] LAB LIVE PAGE 3 Patient: FOUZIA HILLMAN [id number] (Continued) GROSS DESCRIPTION (Continued) GROSS DESCRIPTION 1. [...] serially sectioned from lateral to medial and industrial relations representative sections are submitted in cassettes A [...] inked, the specimen is serially sectioned and industrial relations representative sections are submitted in five cassettes. 3. The specimen is received in formalin labeled, Right [place] Node, and consists of a 2.5 x [...] 1234 END OF REPORT DEPARTMENT OF PATHOLOGY, [address] [place] [address] Say Bentley M.D. Director [facility] # [id number] 6 Operations Intelligence Superintendent: [id number] Operations Intelligence Superintendent: [id number] Operations Intelligence Superintendent: [id number] Procedures Date CPT Code Description Status 05/22/2018 75562 Biopsy/Excision Deep Axillary Node(S) Completed 05/22/2018 57222 Mastectomy Partial Completed 05/22/2018 Mammogram Completed 04/20/2018 Mammogram Completed 11/02/2012 91287 Stress Test Completed 10/18/2012 87043 ECHO Transthoracic, Real-Time 2D With Doppler And Color Completed Flow 09/14/2012 42737 EKG Tracing & Interpretation Completed 08/24/2004 79641 EKG, Interpretation Only Completed Encounters Type Date Location Provider CPT E/M Dx Office Visit 05/08/2018 [facility] Fermin Yeager, 53386 C50.911 10:30a Of Lexi Monterroso Office Visit 12/07/2012 [facility] Reynaldo Flowers, 96660 785.1 3:30p Lexi Monterroso 786.50 Office Visit 09/14/2012 1:00p [facility] Reynaldo Flowers, 29575 785.1 Lexi Monterroso 786.05 Plan of Care 06/18/2018 - Aguilar Luo, PAC50.911 Malignant neoplasm of unsp site of right female breastFollow up:7-10 d prn if breast symptoms persist
[2018-07-23] MEDS ORDERED: HYDROmorphone INJ1* 1 MG/ML SYRINGE IV SLOW PU ONE (19:57)
[2018-07-23] MEDS ORDERED: NS 0.9% 1000 ML* 1,000 ML IV ONE (19:57)
[2018-07-23] MEDS ORDERED: Metoclopramide IV* 5 MG/ML 2 ML VIAL IV ONE (19:57)
[2018-07-23] MEDS ORDERED: diPHENhydraMINE IV* 50 MG/ML 1 ml VIAL (BENADRYL) IV ONE (19:58)
--- NOTE | 2018-07-23 19:59 | ED ---
Headache - HPI Summary HPI Summary: A 63 y/o female accompanied by friends presents to ED c/o headache (frontal). Currently, the patient is still has a headache reaching 8/10 in severity. In the ED room, the patient has a pulse of 74 BPM, O2 saturation of 95% and blood pressure of 125/53. As per triage, "Pt says she had chemo on and has had a headache, n/v ever since. Pt referred to ED by Dr Mann for blood work and CT scan of brain pt states". According to the patient, she had chemotherapy (2nd cycle) on (07/19/2018) for her breast cancer that was diagnosed on April 20 2018 (first time). Since , she has been experiencing a headache, however, she cannot get any kind of relieve even with use of her prescribed regular Ibuprofen and Morphine. Additionally she has been vomiting, nausea and exhibited appetite changes, but denies any diarrhea, neck pain, fever and photophobia. Dr. Mann referred her to [facility] ED as he is concerned about swelling and recommended CT scan and blood work. Patient takes Zofran for nausea at home. Patient urinated 20 minutes ago. - History Of Current Complaint Chief Complaint: EDHeadache Stated Complaint: HEADACHE Time Seen by Provider: 07/23/18 19:40 Hx Obtained From: Patient Onset/Duration: Sudden Onset, Started days ago, Still Present Initially Headache Was: Severe - 8/10 Currently Pain Is: Severe - 8/10 Timing: Constant Location of Headache: Frontal Radiates to: None Aggravating Factor: Nothing Allevating Factors: Nothing Associated Signs And Symptoms: Nausea, Vomiting - Allergies/Home Medications Allergies/Adverse Reactions: Allergies Allergy/AdvReac Type Severity Reaction Status Date / Time niacin Allergy Hives/Diff. Verified 07/23/18 20:02 [From Niaspan Breathing/I Extended-Release] tching PMH/Surg Hx/FS Hx/Imm Hx Endocrine/Hematology History: Reports: Hx Diabetes - TYPE 2, Hx Thyroid Disease - HYPOTHYROID Denies: Hx Bone Marrow Disease, Hx Sickle Cell Disease, Hx Anemia Cardiovascular History: Reports: Hx Hypertension, Hx Peripheral Vascular Disease , Other Cardiovascular Problems/Disorders - HIGH CHOLESTEROL Respiratory History: Reports: Hx Asthma, Hx Chronic Obstructive Pulmonary Disease (COPD), Hx Sleep Apnea - CAN'T USE CPAP, CAUSES MIGRAINES, Other Respiratory Problems/Disorders - COPD, 1 PPD SMOKER FOR 48 YRS GI History: Reports: Hx Gastroesophageal Reflux Disease Musculoskeletal History: Reports: Hx Arthritis, Hx Fibromyalgia, Other Musculoskeletal History - HX OF RIGHT KNEE PAIN, SURGERY, CHRONIC BACK PAIN Sensory History: Denies: Hx Cataracts, Hx Contacts or Glasses, Hx Glaucoma, Hx Hearing Aid Opthamlomology History: Denies: Hx Cataracts, Hx Contacts or Glasses, Hx Glaucoma Neurological History: Reports: Other Neuro Impairments/Disorders - FIBROMYALGIA Psychiatric History: Reports: Hx Anxiety - TAKES RX, Hx Depression - Cancer History Cancer Type, Location and Year: right breast Hx Chemotherapy: No Hx Radiation Therapy: No - Surgical History Surgery Procedure, Year, and Place: TONSILLECTOMY 1964 [facility]. RIGHT KNEE MENISCUS [facility]. BACK SURG B[facility]. C-SECTIONS 1973 & 1977 [facility]. UMBILICAL HERNIA X 2 [facility] Hx Anesthesia Reactions: Yes - TOOK A LONG TIME TO WAKE UP POST UMBILICAL SURGERY - Immunization History Immunizations Up to Date: Yes Infectious Disease History: No Infectious Disease History: Denies: Traveled Outside the [place] in Last 30 Days - Family History Known Family History: Positive: Diabetes, Other - Cancer - Social History Alcohol Use: None Substance Use Type: Reports: None Hx Tobacco Use: Yes Smoking Status (MU): Heavy Every Day Tobacco Smoker Type: Cigarettes Amount Used/How Often: 1 PPD FOR 48 YRS Length of Time of Smoking/Using Tobacco: 48 YRS Have You Smoked in the Last Year: Yes Review of Systems Negative: Fever Negative: Photophobia Positive: Vomiting, Nausea, Other - POSITIVE: Appetite changes. Negative: Diarrhea Positive: Other - NEGATIVE: Neck pain Positive: Headache All Other Systems Reviewed And Are Negative: Yes Physical Exam - Summary Physical Exam Summary: VITAL SIGNS: Reviewed. GENERAL: Patient is a morbidly obese female who is lying comfortable in the stretcher. Patient is not in any acute respiratory distress. HEAD AND FACE: No signs of trauma. No ecchymosis, hematomas or skull depressions. No sinus tenderness. EYES: PERRLA, EOMI x 2, No injected conjunctiva, no nystagmus. EARS: Hearing grossly intact. Ear canals and tympanic membranes are within normal limits. MOUTH: Oropharynx within normal limits. NECK: Supple, trachea is midline, no adenopathy, no JVD, no carotid bruit, no c- spine tenderness, neck with full ROM. CHEST: Symmetric, no tenderness at palpation LUNGS: Clear to auscultation bilaterally. No wheezing or crackles. CVS: Regular rate and rhythm, S1 and S2 present, no murmurs or gallops appreciated. ABDOMEN: Soft, non-tender. No signs of distention. No rebound no guarding, and no masses palpated. Bowel sounds are normal. Patient has an umbilical hernia. EXTREMITIES: FROM in all major joints, no edema, no cyanosis or clubbing. NEURO: Alert and oriented x 3. No acute neurological deficits. Speech is normal and follows commands. Neuro exam is intact. SKIN: Dry and warm GCS: 15 Triage Information Reviewed: Yes Vital Signs On Initial Exam: Initial Vitals Temp Pulse Resp BP Pulse Ox 96.9 F 75 16 143/49 96 07/23/18 16:09 07/23/18 16:09 07/23/18 16:09 07/23/18 16:09 07/23/18 16:09 Vital Signs Reviewed: Yes Diagnostics - Vital Signs Vital Signs Temp Pulse Resp BP Pulse Ox 07/23/18 19:49 70 18 95 07/23/18 18:00 97.8 F 73 20 136/57 96 07/23/18 16:09 96.9 F 75 16 143/49 96 - Laboratory Result Diagrams: 07/23/18 20:12 07/23/18 20:12 Lab Statement: Any lab studies that have been ordered have been reviewed, and results considered in the medical decision making process. - CT BRAIN CT CT Interpretation Completed By: Radiologist - 1. No acute intracranial abnormality. ED PHYSICIAN REVIEWED THIS RADIOLOGY REPORT. Re-Evaluation - Re-Evaluation First Eval Re-Evaluation Time: 21:33 Change: Improved Comment: Patient is feeling much better. Headache Course/Dx - Course Course Of Treatment: A 63 y/o female accompanied by friends presents to ED c/o headache (frontal). Currently, the patient is still has a headache reaching 8/ 10 in severity. In the ED room, the patient has a pulse of 74 BPM, O2 saturation of 95% and blood pressure of 125/53. A Brain CT revealed no acute intracranial abnormality. In the ED course, the patient received Benadryl, Dilaudid, Reglan and IV fluids. During reevaluation, the patient revealed she was feeling much better. Patient will be discharged with a diagnosis of headache. Patient will be sent home with Reglan. Patient is to follow up with Dr. Mann in 1-2 days. Patient is agreeable with this plan. - Diagnoses Provider Diagnoses: Headache Discharge - Sign-Out/Discharge Documenting (check all that apply): Patient Departure - DISCHARGE - Discharge Plan Condition: Stable Disposition: HOME Prescriptions: Metoclopramide TAB* [Reglan TAB*] 10 mg PO Q6H PRN #30 tab PRN Reason: Nausea/Vomiting Patient Education Materials: Migraine Headache (ED), Acute Headache (ED) Referrals: Ruth Ledezma [Primary Care Provider] - Breezy Mann MD [Medical Doctor] - 2 Days Additional Instructions: FOLLOW UP WITH DR. MANN IN 1-2 DAYS. TAKE MEDICATION PRESCRIBED. RETURN TO ED FOR ANY NEW OR WORSENING SYMPTOMS. - Attestation Statements Document Initiated by Scribe: Yes Documenting Scribe: Laz Jansen Provider For Whom Scribe is Documenting (Include Credential): Ashley Chong Scribe Attestation: Laz Haile, scribed for Ashley Chong on 07/23/18 at 3443.
[2018-07-23 20:29] LABS: ABS Basophils 0 10^3/ul (0-0.2); ABS Eosinophils 0.1 10^3/ul (0-0.6); ABS Lymphocytes 1.6 10^3/ul (1.0-4.8); ABS Monocytes 0 10^3/ul (0-0.8); ABS Neutrophils 1.6 10^3/ul (1.5-7.7); ABS Nucleated RBC 0 10^3/ul; Eosinophil % 3.2 % (0-6); Hematocrit 38 % (35-47); Hemoglobin 12.8 g/dl (12.0-16.0); Lymphocyte % 48.2 % (25-47); Mean Corpuscular HGB Conc 34 g/dl (31-36); Mean Corpuscular Hemoglobin 29 pg (27-31); Mean Corpuscular Volume 85 fL (80-97); Mean Platelet Volume 9.6 um3 (7.4-10.4); Nucleated Red Blood Cells % 0.1; Platelet Count 129 10^3/ul (150-450); Red Blood Count 4.47 10^6/ul (4.00-5.40); Red Cell Distribution Width 17 % (10.5-15); White Blood Count 3.3 10^3/ul (3.5-10.8)
[2018-07-23 20:34] LABS: INR 1.03 (0.77-1.02)
--- NOTE | 2018-07-23 20:54 | RAD ---
EXAM: CT Head Without Intravenous Contrast CLINICAL HISTORY: 63 years old, female; Pain; Headache; Tension; Patient HX: Recent chemo breast cancer; Additional info: H/a TECHNIQUE: Axial computed tomography images of the head/brain without intravenous contrast. All CT scans at this facility use at least one of these dose optimization techniques: automated exposure control; mA and/or kV adjustment per patient size (includes targeted exams where dose is matched to clinical indication); or iterative reconstruction. COMPARISON: No relevant prior studies available. FINDINGS: Brain: Unremarkable. No hemorrhage. No significant white matter disease. No edema. Ventricles: Unremarkable. No ventriculomegaly. Bones/joints: Unremarkable. No acute fracture. Soft tissues: Unremarkable. Sinuses: Unremarkable as visualized. No acute sinusitis. Mastoid air cells: Unremarkable as visualized. No mastoid effusion. IMPRESSION: 1. No acute intracranial abnormality.
[2018-07-23 21:42] VITALS: BP 128/72
== END 2018-07-23 21:42 | disposition home or self-care (01) ==
LOC: ED 16:01
DX: R11.2 Nausea with vomiting, unspecified (principal); E11.9 Type 2 diabetes mellitus without complications; R51 Headache; F17.210 Nicotine dependence, cigarettes, uncomplicated; E66.01 Morbid (severe) obesity due to excess calories; I10 Essential (primary) hypertension; Z86.79 Personal history of other diseases of the circulatory system
CPT/HCPCS: 36415; 70450; 80053; 85025; 85610; 85730; 96374; 96375; 99282; J1170; J1200; J2765

== ENCOUNTER 2019-03-25 23:57 | Emergency (ER) | payer MEDICARE ==
[2019-03-26 01:33] LABS: ABS Basophils 0.1 10^3/ul (0-0.2); ABS Eosinophils 0.2 10^3/ul (0-0.6); ABS Lymphocytes 1.2 10^3/ul (1.0-4.8); ABS Monocytes 0.3 10^3/ul (0-0.8); ABS Neutrophils 2.9 10^3/ul (1.5-7.7); Eosinophil % 3.9 %; Hematocrit 42 % (35-47); Hemoglobin 13.9 g/dL (12.0-16.0); Lymphocyte % 26.2 %; Mean Corpuscular HGB Conc 33 g/dL (31-36); Mean Corpuscular Hemoglobin 28 pg (27-31); Mean Corpuscular Volume 83 fL (80-97); Mean Platelet Volume 8.6 fL (7.4-10.4); Nucleated Red Blood Cells % 0.1; Platelet Count 125 10^3/uL (150-450); Red Blood Count 5.03 10^6 /uL (3.70-4.87); Red Cell Distribution Width 16 % (10.5-15); White Blood Count 4.8 10^3/uL (3.5-10.8)
[2019-03-26 01:42] LABS: Activated Partial Thrombo Time 35.9 seconds (26.0-36.3); INR 1.14 (0.82-1.09)
--- NOTE | 2019-03-26 01:46 | ED ---
Neurological HPI - HPI Summary HPI Summary: The patient is a 63 year old female who is presenting to the [facility] via ambulance (BLS from home) with chief complaints of arm numbness and lip numbness. She states that earlier today, that her arm was "flappy" with numbness. The numbness is still present to a lesser extent and the patient also reports tingling in her fingers. The episode involving her arm lasted 1 to 2 minutes. The onset of the episode was 2029. Pertinent PMHx includes DM which is currently taking medication for. Symptoms are aggravated by nothing. Symptoms are alleviated by nothing. The lip numbness has been present for 3 days as per triage report. Pain is rated to be 8/10 in severity. - History of Current Complaint Chief Complaint: EDGeneral Stated Complaint: ARM TWITCHING PER EMS Time Seen by Provider: 03/26/19 00:15 Hx Obtained From: Patient Onset/Duration: Sudden Onset, Started hours ago - 2029 Timing: Constant Onset Severity: Severe Pain Intensity: 8 Pain Scale Used: 0-10 Numeric Character: Numbness/Tingling - Arm numbness and tingling at the fingers. Numbness of the lips, Other: - "hand spasm" Aggravating: Nothing Alleviating: Nothing - Additional Pertinent History Primary Care Physician: [id number] - Allergy/Home Medications Allergies/Adverse Reactions: Allergies Allergy/AdvReac Type Severity Reaction Status Date / Time cephalexin [From Keflex] Allergy Unknown Verified 03/26/19 00:15 Reaction Details niacin Allergy Hives/Diff. Verified 03/26/19 00:15 [From Niaspan Breathing/I Extended-Release] tching PMH/Surg Hx/FS Hx/Imm Hx Endocrine/Hematology History: Reports: Hx Diabetes - TYPE 2, Hx Thyroid Disease - HYPOTHYROID Denies: Hx Bone Marrow Disease, Hx Sickle Cell Disease, Hx Anemia Cardiovascular History: Reports: Hx Hypertension, Hx Peripheral Vascular Disease , Other Cardiovascular Problems/Disorders - HIGH CHOLESTEROL Respiratory History: Reports: Hx Asthma, Hx Chronic Obstructive Pulmonary Disease (COPD), Hx Sleep Apnea - CAN'T USE CPAP, CAUSES MIGRAINES, Other Respiratory Problems/Disorders - COPD, 1 PPD SMOKER FOR 48 YRS GI History: Reports: Hx Gastroesophageal Reflux Disease Musculoskeletal History: Reports: Hx Arthritis, Hx Fibromyalgia, Other Musculoskeletal History - HX OF RIGHT KNEE PAIN, SURGERY, CHRONIC BACK PAIN Sensory History: Denies: Hx Cataracts, Hx Contacts or Glasses, Hx Glaucoma, Hx Hearing Aid Opthamlomology History: Denies: Hx Cataracts, Hx Contacts or Glasses, Hx Glaucoma Neurological History: Reports: Other Neuro Impairments/Disorders - FIBROMYALGIA Psychiatric History: Reports: Hx Anxiety - TAKES RX, Hx Depression - Cancer History Cancer Type, Location and Year: right breast Hx Chemotherapy: No Hx Radiation Therapy: No - Surgical History Surgery Procedure, Year, and Place: TONSILLECTOMY 1964 [facility] [place]. RIGHT KNEE MENISCUS [facility]EN[facility]. BACK SURG [facility]. C-SECTIONS 1973 & 1977 [facility] [place]. UMBILICAL HERNIA X 2 [facility] Hx Anesthesia Reactions: Yes - TOOK A LONG TIME TO WAKE UP POST UMBILICAL SURGERY Infectious Disease History: No Infectious Disease History: Denies: Traveled Outside the [place] in Last 30 Days - Family History Known Family History: Positive: Diabetes, Other - Cancer - Social History Lives: Alone Alcohol Use: None Substance Use Type: Reports: None Hx Tobacco Use: Yes Smoking Status (MU): Heavy Every Day Tobacco Smoker Type: Cigarettes Amount Used/How Often: 1 PPD FOR 48 YRS Length of Time of Smoking/Using Tobacco: 48 YRS Have You Smoked in the Last Year: Yes Review of Systems Constitutional: Negative Eyes: Negative ENT: Negative Cardiovascular: Negative Respiratory: Negative Gastrointestinal: Negative Genitourinary: Negative Musculoskeletal: Negative Skin: Negative Neurological: Other - Tingling at the fingers Positive: Numbness - Right arm and lip Psychological: Normal All Other Systems Reviewed And Are Negative: Yes Physical Exam - Summary Physical Exam Summary: VITAL SIGNS: Reviewed. GENERAL: Patient is a morbidly obese (FEMALE) who is lying comfortable in the stretcher. Patient is not in any acute respiratory distress. HEAD AND FACE: No signs of trauma. No ecchymosis, hematomas or skull depressions. No sinus tenderness. EYES: PERRLA, EOMI x 2, No injected conjunctiva, no nystagmus. EARS: Hearing grossly intact. Ear canals and tympanic membranes are within normal limits. MOUTH: Oropharynx within normal limits. NECK: Supple, trachea is midline, no adenopathy, no JVD, no carotid bruit, no c- spine tenderness, neck with full ROM CHEST: Symmetric, no tenderness at palpation LUNGS: Clear to auscultation bilaterally. No wheezing or crackles. CVS: Regular rate and rhythm, S1 and S2 present, no murmurs or gallops appreciated. ABDOMEN: Soft, non-tender. No signs of distention. No rebound no guarding, and no masses palpated. Bowel sounds are normal. EXTREMITIES: FROM in all major joints, no edema, no cyanosis or clubbing. NEURO: Alert and oriented x 3. No acute neurological deficits. Speech is normal and follows commands. SKIN: Dry and warm Triage Information Reviewed: Yes Vital Signs On Initial Exam: Initial Vitals Temp Pulse Resp BP Pulse Ox 95.0 F 74 17 123/94 92 03/26/19 00:06 03/26/19 00:06 03/26/19 00:06 03/26/19 00:06 03/26/19 00:06 Vital Signs Reviewed: Yes Diagnostics - Vital Signs Vital Signs Temp Pulse Resp BP Pulse Ox 03/26/19 01:00 98.4 F 03/26/19 00:06 95.0 F 74 17 123/94 92 - Laboratory Lab Results: Lab Results 03/26/19 Range/Units 01:27 WBC 4.8 (3.5-10.8) 10^3/uL RBC 5.03 H (3.70-4.87) 10^6 /uL Hgb 13.9 (12.0-16.0) g/dL Hct 42 (35-47) % MCV 83 (80-97) fL MCH 28 (27-31) pg MCHC 33 (31-36) g/dL RDW 16 H (10.5-15) % Plt Count 125 L (150-450) 10^3/uL MPV 8.6 (7.4-10.4) fL Neut % (Auto) 61.9 % Lymph % (Auto) 26.2 % Cooke % (Auto) 6.5 % Eos % (Auto) 3.9 % Baso % (Auto) 1.5 % Absolute Neuts (auto) 2.9 (1.5-7.7) 10^3/ul Absolute Lymphs (auto) 1.2 (1.0-4.8) 10^3/ul Absolute Monos (auto) 0.3 (0-0.8) 10^3/ul Absolute Eos (auto) 0.2 (0-0.6) 10^3/ul Absolute Basos (auto) 0.1 (0-0.2) 10^3/ul Absolute Nucleated RBC 0.0 10^3/ul Nucleated RBC % 0.1 Result Diagrams: 03/26/19 01:27 03/26/19 01:27 Lab Statement: Any lab studies that have been ordered have been reviewed, and results considered in the medical decision making process. - CT CT Brain CT Interpretation Completed By: Radiologist Summary of CT Findings: CT Brain revealed as per radiologist No acute intracranial abnormality. The ED Physician has reviewed this radiology report. Head and Neck CTA CT Interpretation Completed By: Radiologist Summary of CT Findings: CTA Head/Neck. Head CTA reveals as per radiologist report No hemodynamically significant stenosis of the intracranial circulation. No. aneurysm or occlusions. Neck CTA reveals as per radiologist report 1. High grade stenosis involving the origin of the right internal carotid. artery. This is approximately 80-90% in severity. The luminal diameter is less. than 1 mm..Intraluminal filling defect distal to the high-grade stenosis which. may represent a thrombus. 2. The rest of the cervical carotid and vertebral arteries shows no. hemodynamically significant narrowing. No dissection or occlusion. The ED Physician has reviewed this radiology report. - EKG 0114 EKG Rhythm: Sinus Rhythm Summary of EKG Findings: EKG at 0114 reveals 62 bpm NSR with Q waves in the anteroseptal leads. Course/Dx - Course Course Of Treatment: The patient is a 63 year old female who is presenting to the [facility] with a chief complaint of right arm numbness. The patient reports of lip numbness, and finger tingling. She describes an episode today of a hand spasm that lasted 1 to 2 minutes in which the arm was "flappy." Pertinent PMHx includes DM. She received an EKG, CT Brain and CTA Head and Neck in the [facility]. Upon reviewing the CTA head and neck results, The patient will be transfered to a higher level of care facility ([facility]) in order to receive a consult from a vascular surgeon. Dx of right internal cartoid stenosis and TIA. Critical care time of 90 minutes. We discussed the patient care with Dr. Ramos at 0610 (vascular surgeon at [facility]) and she accepts patient care. She recommends given the patient baby aspirin and Plavix loading dose. - Diagnoses Provider Diagnoses: Stenosis of right internal carotid artery, TIA (transient ischemic attack) - Critical Care Time Critical Care Time: 75-104 min - 90 minutes Discharge - Sign-Out/Discharge Documenting (check all that apply): Patient Departure - TRANSFER TO [facility] - Discharge Plan Condition: Stable Disposition: TRANS HIGHER LVL OF CARE FAC Referrals: Ruth Ledezma [Primary Care Provider] - - Billing Disposition and Condition Condition: STABLE Disposition: Trans Higher Lvl of Care Fac - Attestation Statements Document Initiated by Scribe: Yes Documenting Scribe: Juan Nugent Provider For Whom Scribe is Documenting (Include Credential): Dr. Alisa Kangibe Attestation: Juan Hiale, scribed for Dr. Ashley Chong on 03/26/19 at 0617. Scribe Documentation Reviewed: Yes Provider Attestation: The documentation as recorded by the Juan newsome accurately reflects the service I personally performed and the decisions made by Dr. Alisa preston Status of Scribe Document: Viewed
[2019-03-26 01:53] LABS: Albumin 3.9 g/dL (3.2-5.2); Albumin/Globulin Ratio 1.1 (1-3); BUN/Creatinine Ratio 9.8 (8-20); Calcium 9.4 mg/dL (8.6-10.3); EGFR African American 74.6 (>60); EGFR Non-African American 61.7 (>60); Globulin 3.7 g/dL (2-4); Magnesium 1.6 mg/dL (1.9-2.7); Potassium 3.7 mmol/L (3.5-5.0); Total Bilirubin 0.5 mg/dL (0.2-1.0); Total Protein 7.6 g/dL (6.4-8.9)
[2019-03-26] MEDS ORDERED: Iodixanol* (CONTRAST) 320 MG/ML 100 ML SDV IV ONE (02:09)
[2019-03-26] MEDS ORDERED: Insulin REGULAR(*) 1 UNITS UNIT IV PUSH ONE (02:46)
[2019-03-26] MEDS ORDERED: NS 0.9% 1000 ML** 1,000 ML IV ONE (02:46)
[2019-03-26] MEDS ORDERED: Aspirin 81 mg CHEW TAB* 81 MG TAB.CHEW PO ONE (06:10)
[2019-03-26] MEDS ORDERED: Clopidogrel TAB* 300 MG PO ONE (06:11)
[2019-03-26] MEDS: Insulin REGULAR(*) 1 UNITS UNIT IV PUSH ONE ×2 (06:12→06:49)
[2019-03-26] MEDS ORDERED: Morphine 4 MG/ML VIAL (1 ml) 4 MG/ML VIAL IV ONE (06:14)
[2019-03-26 07:31] VITALS: BP 146/60
== END 2019-03-26 07:28 | disposition short-term general hospital (02) ==
LOC: ED 23:57
DX: I35.0 Nonrheumatic aortic (valve) stenosis (principal); G45.9 Transient cerebral ischemic attack, unspecified; F17.210 Nicotine dependence, cigarettes, uncomplicated; E11.9 Type 2 diabetes mellitus without complications; I10 Essential (primary) hypertension; I73.9 Peripheral vascular disease, unspecified; J44.9 Chronic obstructive pulmonary disease, unspecified; K21.9 Gastro-esophageal reflux disease without esophagitis; Z85.3 Personal history of malignant neoplasm of breast
CPT/HCPCS: 36415; 70450; 70496; 70498; 80053; 83735; 85025; 85610; 85730; 93005; 96361; 96374; 99285; A9270-GY; J2270; Q9967

== ENCOUNTER 2019-04-10 14:36 | Inpatient (IN) | payer MEDICARE ==
[2019-04-10] MEDS ORDERED: Albuterol/Ipratropium NEB.SOL* Albuterol 2.5 MG/Ipratropium 0.5 MG 3 ML INH ONE (14:57)
[2019-04-10] MEDS ORDERED: NS 0.9% 1000 ML** 1,000 ML IV.FLUID IV ONE (14:58)
[2019-04-10] MEDS ORDERED: NS 0.9% 1000 ML** 1,000 ML IV ONE (14:59)
[2019-04-10] MEDS ORDERED: methylPREDNISolone 125 MG* 2 ML VIAL IV ONE (15:08)
--- NOTE | 2019-04-10 15:49 | ED ---
Shortness of Breath - HPI Summary HPI Summary: 63-year-old who presents acute onset of shortness of breath today. She has history of the stroke and cannot use her left side. She is only able to handle liquids for her diet. She was having lunch today and aspirated part of her lunch. Her o2 stats dropped and she became altered. She came by EMS and her o2 stats were in the 80s on 15 L. She denies any chest pain. She denies any shortness breath. She does admit to headache she states that she is at the past 24 hours. They've been giving her Tylenol which has not been helping. She denies any fevers. No neck stiffness. No bowel pain. No nausea and vomiting. She denies any cough. she has a history of copd - History of Current Complaint Chief Complaint: EDShortnessOfBreath Time Seen by Provider: 04/10/19 14:54 - Allergy/Home Medications Allergies/Adverse Reactions: Allergies Allergy/AdvReac Type Severity Reaction Status Date / Time cephalexin [From Keflex] Allergy Unknown Verified 03/26/19 00:15 Reaction Details niacin Allergy Hives/Diff. Verified 03/26/19 00:15 [From Niaspan Breathing/I Extended-Release] tching Home Medications: Home Medications Acetaminophen/Diphenhydramine [Tylenol Pm Ex-Strength Caplet] 1 each PO BEDTIME PRN 04/10/19 [History Confirmed 04/10/19] Aspirin EC TAB* [Ecotrin EC Low Dose 81 MG*] 81 mg PO DAILY 04/10/19 [History Confirmed 04/10/19] Atorvastatin* [Lipitor*] 80 mg PO QPM 04/10/19 [History Confirmed 04/10/19] Carvedilol TAB* [Coreg TAB*] 6.25 mg PO BID 04/10/19 [History Confirmed 04/10/19 ] Fenofibrate(NF) 160 mg PO DAILY 04/10/19 [History Confirmed 04/10/19] Losartan TAB* [Cozaar TAB*] 100 mg PO DAILY 04/10/19 [History Confirmed 04/10/19 ] Losartan/Hydrochlorothiazide [Hyzaar 50/12.5 mg] 1 tab PO DAILY 04/10/19 [ History Confirmed 04/10/19] Nicotine PATCH 21 MG/24 HR* 21 mg TRANSDERM DAILY 04/10/19 [History Confirmed ] Pregabalin CAP(*) [Lyrica CAP(*)] 150 mg PO BID 04/10/19 [History Confirmed ] Ropinirole TAB* [Requip TAB*] 0.5 mg PO BEDTIME 04/10/19 [History Confirmed ] Spironolactone TAB* [Aldactone TAB*] 50 mg PO DAILY 04/10/19 [History Confirmed 04/10/19] amLODIPine TAB* [Norvasc 5 mg TAB*] 10 mg PO DAILY 04/10/19 [History Confirmed 04/10/19] metFORMIN* [Glucophage 500 MG TAB *] 500 mg PO DAILY 04/10/19 [History Confirmed 04/10/19] PMH/Surg Hx/FS Hx/Imm Hx Endocrine/Hematology History: Reports: Hx Diabetes - TYPE 2, Hx Thyroid Disease - HYPOTHYROID Denies: Hx Bone Marrow Disease, Hx Sickle Cell Disease, Hx Anemia Cardiovascular History: Reports: Hx Hypertension, Hx Peripheral Vascular Disease , Other Cardiovascular Problems/Disorders - HIGH CHOLESTEROL Respiratory History: Reports: Hx Asthma, Hx Chronic Obstructive Pulmonary Disease (COPD), Hx Sleep Apnea - CAN'T USE CPAP, CAUSES MIGRAINES, Other Respiratory Problems/Disorders - COPD, 1 PPD SMOKER FOR 48 YRS GI History: Reports: Hx Gastroesophageal Reflux Disease History: Denies: Hx Renal Disease Musculoskeletal History: Reports: Hx Arthritis, Hx Fibromyalgia, Other Musculoskeletal History - HX OF RIGHT KNEE PAIN, SURGERY, CHRONIC BACK PAIN Sensory History: Denies: Hx Cataracts, Hx Contacts or Glasses, Hx Glaucoma, Hx Hearing Aid Opthamlomology History: Denies: Hx Cataracts, Hx Contacts or Glasses, Hx Glaucoma Neurological History: Reports: Other Neuro Impairments/Disorders - FIBROMYALGIA Psychiatric History: Reports: Hx Anxiety - TAKES RX, Hx Depression - Cancer History Cancer Type, Location and Year: right breast Hx Chemotherapy: No Hx Radiation Therapy: No - Surgical History Surgery Procedure, Year, and Place: TONSILLECTOMY 1964 [facility]. RIGHT KNEE MENISCUS [facility]. BACK SURG [facility]. C-SECTIONS 1973 & 1977 [facility]. UMBILICAL HERNIA X 2 [facility] Hx Anesthesia Reactions: Yes - TOOK A LONG TIME TO WAKE UP POST UMBILICAL SURGERY - Immunization History Immunizations Up to Date: Yes Infectious Disease History: No Infectious Disease History: Denies: Traveled Outside the [place] in Last 30 Days - Family History Known Family History: Positive: Diabetes, Other - Cancer - Social History Alcohol Use: None Substance Use Type: Reports: None Hx Tobacco Use: Yes Smoking Status (MU): Heavy Every Day Tobacco Smoker Type: Cigarettes Amount Used/How Often: 1 PPD FOR 48 YRS Length of Time of Smoking/Using Tobacco: 48 YRS Have You Smoked in the Last Year: Yes Review of Systems Negative: Fever Negative: Chest Pain Positive: Shortness Of Breath Negative: Abdominal Pain Positive: Headache All Other Systems Reviewed And Are Negative: Yes Physical Exam Triage Information Reviewed: Yes Vital Signs On Initial Exam: Initial Vitals Temp Pulse Resp BP Pulse Ox 97.5 F 63 22 89/48 85 04/10/19 14:38 04/10/19 14:38 04/10/19 14:38 04/10/19 14:38 04/10/19 14:38 Vital Signs Reviewed: Yes Appearance: Positive: Well-Appearing Skin: Positive: Warm, Dry Eyes: Positive: Normal, Conjunctiva Clear ENT: Positive: Pharynx normal Respiratory/Lung Sounds: Positive: Breath Sounds Present, Rhonchi Cardiovascular: Positive: Normal, RRR Abdomen Description: Positive: Nontender, Soft Bowel Sounds: Positive: Present Musculoskeletal: Positive: Normal Neurological: Positive: Normal Psychiatric: Positive: Normal Diagnostics - Vital Signs Vital Signs Temp Pulse Resp BP Pulse Ox 04/10/19 15:29 64 17 95 04/10/19 15:25 72 15 78/51 92 04/10/19 15:09 60 18 150/127 85 04/10/19 15:00 66 14 84 04/10/19 14:49 64 17 95/53 83 04/10/19 14:48 63 14 54/26 85 04/10/19 14:46 17 04/10/19 14:45 63 12 84 04/10/19 14:41 69 20 89/48 83 04/10/19 14:38 97.5 F 63 22 89/48 85 - Laboratory Lab Results: Lab Results 04/10/19 Range/Units 15:25 Patient Temperature Not Reportable ABG pH 7.40 (7.35-7.45) ABG pH (Temp Correct) Not Reportable ABG pCO2 51 H (35-45) mmHg ABG pCO2 (Temp Corrct Not Reportable ABG pO2 122 H (80-100) mmHg ABG pO2 (Temp Correct Not Reportable ABG HCO3 29.2 (19-31) mmol/L ABG O2 Saturation 99.3 H (94.0-98.0) % ABG Base Excess 5.5 H (-2.0-2.0) mmol/L Respiration Rate Not Reportable O2 Delivery Device vapo Ventilator Type Not Reportable Vent Mode Not Reportable FiO2 100 Inspiratory Time Not Reportable PEEP Not Reportable Pressure Support Not Reportable Pressure Control Not Reportable EPAP Not Reportable IPAP Not Reportable BiPAP Not Reportable Result Diagrams: 04/10/19 15:56 04/10/19 15:56 Lab Statement: Any lab studies that have been ordered have been reviewed, and results considered in the medical decision making process. - Radiology chest Radiology Interpretation Completed By: Radiologist Summary of Radiographic Findings: no pneumonia Re-Evaluation - Re-Evaluation First Eval Comment: no chest pain, complaining only of headache, 02 stat in 80s on 15 liters will switch to vapo therm Second Eval Comment: o2 stats improved with vapo therm but bp has been varying Course/Dx - Course Course Of Treatment: 63-year-old who presents acute onset of shortness of breath today. She has history of the stroke and cannot use her left side. She is only able to handle liquids for her diet. She was having lunch today and aspirated part of her lunch. Her o2 stats dropped and she became altered. She came by EMS and her o2 stats were in the 80s on 15 L. She denies any chest pain. She denies any shortness breath. She does admit to headache she states that she is at the past 24 hours. They've been giving her Tylenol which has not been helping. She denies any fevers. No neck stiffness. No bowel pain. No nausea and vomiting. She denies any cough. On exam patient's blood pressure has been fluctuating. O2 sats are in the 80s on 15 L oxygen mask. patient placed on vapo therm is doing better. Unable to obtain IV right away due to poor vascular access. Ultrasound came to place line. Patient will be admitted to Dr. Noe for hypoxia from aspiration. Chest x-ray shows no pneumonia. - Diagnoses Differential Diagnosis/HQI/PQRI: Positive: COPD Exacerbation, Pneumonia, Other - aspiration Provider Diagnoses: COPD (chronic obstructive pulmonary disease), Acute respiratory failure, Aspiration into airway - Critical Care Time Critical Care Time: 30-74 min - 45 min Discharge - Sign-Out/Discharge Documenting (check all that apply): Patient Departure - Discharge Plan Condition: Guarded Disposition: ADMITTED TO [facility] - Billing Disposition and Condition Condition: GUARDED Disposition: Admitted to [facility]
[2019-04-10 16:10] LABS: ABS Eosinophils 0.2 10^3/ul (0-0.6); ABS Lymphocytes 1.7 10^3/ul (1.0-4.8); ABS Monocytes 0.9 10^3/ul (0-0.8); ABS Neutrophils 11.9 10^3/ul (1.5-7.7); Eosinophil % 1.6 %; Hematocrit 39 % (35-47); Hemoglobin 12.9 g/dL (12.0-16.0); Lymphocyte % 11.8 %; Mean Corpuscular HGB Conc 33 g/dL (31-36); Mean Corpuscular Hemoglobin 27 pg (27-31); Mean Corpuscular Volume 83 fL (80-97); Mean Platelet Volume 8.6 fL (7.4-10.4); Platelet Count 221 10^3/uL (150-450); Red Blood Count 4.69 10^6 /uL (3.70-4.87); Red Cell Distribution Width 16 % (10.5-15); White Blood Count 14.7 10^3/uL (3.5-10.8)
[2019-04-10 16:18] LABS: Activated Partial Thrombo Time 36.4 seconds (26.0-36.3); INR 1.15 (0.82-1.09)
[2019-04-10 16:27] LABS: Albumin/Globulin Ratio 0.9 (1-3); BUN/Creatinine Ratio 13.3 (8-20); C Reactive Protein 48.6 mg/L (<8.01); Calcium 9.4 mg/dL (8.6-10.3); EGFR African American 20.2 (>60); EGFR Non-African American 16.7 (>60); Globulin 4.4 g/dL (2-4); Magnesium 1.8 mg/dL (1.9-2.7); Total Bilirubin 0.8 mg/dL (0.2-1.0); Total Protein 8.4 g/dL (6.4-8.9)
[2019-04-10 16:28] LABS: Troponin I 0.02 ng/mL (<0.04)
[2019-04-10 16:31] LABS: Potassium 5.3 mmol/L (3.5-5.0)
[2019-04-10] MEDS: Lactated Ringers 1000 ML Bag* 1,000 ML IV SCH (17:30)
[2019-04-10 18:14] LABS: Urine Appearance Turbid; Urine Bacteria Absent (Absent); Urine Bilirubin Negative (Negative); Urine Blood 3+ (Negative); Urine Color Amber; Urine Glucose Negative (Negative); Urine Ketones Negative (Negative); Urine Nitrite Negative (Negative); Urine Protein 2+(100 mg/dL) (Negative); Urine Red Blood Cell 3+(>10/hpf) (Absent); Urine Specific Gravity 1.014 (1.010-1.030); Urine Squamous Epithelial Cell Present (Absent); Urine Urobilinogen Negative (Negative); Urine White Blood Cell 3+(>20/hpf) (Absent)
--- NOTE | 2019-04-10 18:25 | PN ---
Progress Note - Progress Note Date of Service: 04/10/19 Note: CT scan on admission shows a large right-sided stroke with punctate areas of hemorrhage - I reviewed these changes with Neurology service, and they are likely from the recent stroke 2 weeks ago. I will try to get records from that hospitalization. Also, urine looks grossly cloudy, so I have sent a urine culture, and will start empiric Rx with Zosyn pending culture results.
[2019-04-10] MEDS ORDERED: Piperacillin/Tazobac ADVAN(*) 3.375 GM in NS 0.9% 100 ML* 100 ML IVPB ONE (18:45)
--- NOTE | 2019-04-10 18:57 | HP ---
ADMISSION HISTORY AND PHYSICAL: DATE OF ADMISSION: 04/10/19 REASON FOR ADMISSION: Hypoxic respiratory failure and renal insufficiency. HISTORY OF PRESENT ILLNESS: This patient is a 63-year-old white female with a history of right-sided CVA with dense left hemiparesis (about 2 weeks ago at another hospital), breast cancer (s/p lumpectomy, and followed by oncology service here), hypertension, and type 2 diabetes, who was brought to the emergency room earlier today because of difficulty breathing following an episode of aspiration while eating. In the emergency department, the patient required high-flow humidified nasal O2 to maintain arterial oxygenation, which mandated an admission to the ICU. The patient has been a resident at [facility] since her stroke. OUTPATIENT MEDICATIONS: 1. Protonix 40 mg twice daily. 2. Lyrica 150 mg twice daily. 3. Spironolactone 50 mg daily. 4. Requip 0.5 mg at bedtime. 5. Coreg 6.25 mg b.i.d. 6. Metformin 500 mg daily. 7. Losartan 100 mg daily. 8. Levothyroxine 250 mcg daily. 9. Fenofibrate 160 mg daily. 10. Cymbalta 60 mg daily. 11. Lipitor 80 mg daily. 12. Amlodipine 10 mg daily. 13. Aspirin 81 mg daily. 14. Morphine 15 mg p.o. q. 6 hours p.r.n. pain ALLERGIES: Drug allergies Include CEPHALEXIN with unknown reaction and NIACIN, which causes urticaria. SOCIAL HISTORY: The patient has been resident at [facility], and there is no history of alcohol or illicit drug abuse. REVIEW OF SYSTEMS: Noncontributory. PHYSICAL EXAMINATION GENERAL: The patient was alert, oriented, and appeared to be breathing comfortably. VITAL SIGNS: Temp 97.8, heart rate 69 and regular, respirations 20 and not labored. O2 sat 95% on Vapotherm, blood pressure 99/78. HEENT: The patient had a left-sided facial droop. Pupils were equal and reactive. NECK: Supple. LUNGS: Clear to auscultation. CARDIAC EXAM: Revealed a regular rhythm without murmurs. ABDOMEN: Soft, nontender. EXTREMITIES: Warm, not edematous and not cyanotic. NEUROLOGIC EXAM: Revealed a dense left-sided hemiparesis. DIAGNOSTIC STUDIES/LAB DATA: Admission laboratory studies were significant for a white count of 14.7, a potassium of 5.3, BUN of 38, creatinine of 2.86, C- reactive protein of 48.6. Blood gases on Vapotherm revealed a pO2 of 122, pCO2 51, pH 7.40, calculated bicarb 29. Chest x ray showed increasing lung markings, but no specific pulmonary infiltrate. EKG revealed a sinus rhythm with Q-waves in V1 through V3 consistent with an old anterior infarction. IMPRESSION: Major problems are hypoxemia requiring high flow nasal O2, presumably secondary to aspiration, but no evidence for aspiration pneumonia at this time. Patient may have dysfunctional swallowing caused by the stroke. The other problem is renal insufficiency, which is apparently new. MANAGEMENT: We will hold off on treatment of aspiration in the absence of a definite infection, but will get a swallowing evaluation. Will also ask the renal service to evaluate the patient's renal function. CRITICAL CARE TIME: 60 minutes (not including time spent speaking with the patient's daughters). [id number]/CPS #: [id number] MTDD
[2019-04-10] MEDS ORDERED: Zosyn per Pharmacy* NOTE FOLLOW UP SCH (19:00)
[2019-04-10] MEDS: Pantoprazole TAB * 40 MG TAB PO SCH (22:01)
[2019-04-10] MEDS: Atorvastatin* 80 MG TAB PO SCH (22:01)
--- NOTE | 2019-04-10 22:55 | PN ---
Progress Note - Progress Note Date of Service: 04/10/19 Note: Concerned by RN that patient wasn't waking quickly - ABG no significant change, concern by RT that this was a VBG. Will continue to monitor closely.
[2019-04-10] MEDS: ZOSYN 3.375 GM Q12H per EXTENDED INFUSION IVPB SCH ×2 (23:38)
[2019-04-11] MEDS: Lactated Ringers 1000 ML Bag* 1,000 ML IV SCH ×2 (04:53→07:37)
[2019-04-11] MEDS: Levothyroxine TAB* 125 MCG TAB PO SCH ×2 (04:53→09:08)
[2019-04-11 05:06] LABS: Hematocrit 36 % (35-47); Hemoglobin 11.7 g/dL (12.0-16.0); Mean Corpuscular HGB Conc 33 g/dL (31-36); Mean Corpuscular Hemoglobin 27 pg (27-31); Mean Corpuscular Volume 84 fL (80-97); Mean Platelet Volume 8.4 fL (7.4-10.4); Platelet Count 189 10^3/uL (150-450); Red Blood Count 4.26 10^6 /uL (3.70-4.87); Red Cell Distribution Width 16 % (10.5-15); White Blood Count 15.8 10^3/uL (3.5-10.8)
[2019-04-11 05:23] LABS: BUN/Creatinine Ratio 16.8 (8-20); EGFR African American 20.7 (>60); EGFR Non-African American 17.1 (>60)
[2019-04-11 05:29] LABS: Potassium 5.6 mmol/L (3.5-5.0)
[2019-04-11] MEDS ORDERED: Spironolactone TAB* 25 MG PO SCH (09:00)
[2019-04-11] MEDS ORDERED: metFORMIN* 500 MG TAB PO SCH (09:00)
[2019-04-11] MEDS: Pregabalin CAP(*) 100 MG PO SCH (09:12)
[2019-04-11] MEDS: Losartan TAB* 25 MG PO SCH (09:12)
[2019-04-11] MEDS: DULoxetine DR CAP* 60 MG CAP.DR PO SCH (09:16)
[2019-04-11] MEDS: Aspirin EC TAB* 81 MG TAB.EC PO SCH (10:00)
[2019-04-11] MEDS: Pantoprazole TAB * 40 MG TAB PO SCH ×2 (10:03→20:55)
[2019-04-11] MEDS: ZOSYN 3.375 GM Q12H per EXTENDED INFUSION IVPB SCH ×4 (12:03→22:33)
[2019-04-11] MEDS: Acetaminophen / Codeine* #3 (300 MG/30 MG) TAB PO PRN (15:14)
--- NOTE | 2019-04-11 15:35 | PN ---
Date of Service: 04/11/19 Critical Care Services: Continues to have a high O2 requirement for unclear reasons. Swallowing evaluation today showed problems with liquids. Vital Signs: Temp Pulse Resp BP SpO2 FiO2 98.8 F 56 13 94/44 97 100 Physical Exam: Gen:alert and oriented. HEENT:Left facial paralysis Lungs: Occasional rhonchi Cardiac: reg rhythm Extremities:No cyanosis or edema Neuro:left hemiplegia Fluid Balance (Past 24 Hours): 04/11/19 06:59 Intake Total 2109 Output Total 560 Balance 1549 Weight 256 lb Intake: IV Fluids 1949 LR 857 ZOSYN 92 IVPB 100 LR 100 Oral 60 Output: Urine 40 Fox 520 Labs: 04/10/19 04/11/19 04/11/19 22:28 04:50 04:50 WBC 15.8 H Hgb 11.7 L Hct 36 MCV 84 Plt Count 189 ABG pH 7.34 L ABG pCO2 54 H ABG pO2 66 L ABG HCO3 26.5 ABG O2 Saturation 94.2 ABG Base Excess 2.2 H O2 Delivery Device vapotherm FiO2 100 Sodium 134 L Potassium 5.6 Chloride 97 L Carbon Dioxide 28 Anion Gap 9 BUN 47 Creatinine 2.79 Glucose 251 Calcium 9.0 Studies: Swallowing study - as mentioned Nutrition: Will start pureed diet with nectar thickness, as recommended. Impression: 1. Swallowing disorder post-stroke 2. High O2 requirement of unclear etiology 3. Renal function slightly improved after fluids 4. Probable UTI Plan: Appropriate diet started. No other change in management at this time. Monitor renal function Critical Care Time: 30 minutes
[2019-04-11] MEDS: Atorvastatin* 80 MG TAB PO SCH (20:55)
[2019-04-12] MEDS: Acetaminophen / Codeine* #3 (300 MG/30 MG) TAB PO PRN ×3 (03:38→19:19)
[2019-04-12] MEDS: Levothyroxine TAB* 125 MCG TAB PO SCH (05:19)
[2019-04-12 05:59] LABS: Hematocrit 32 % (35-47); Hemoglobin 10.8 g/dL (12.0-16.0); Mean Corpuscular HGB Conc 34 g/dL (31-36); Mean Corpuscular Hemoglobin 28 pg (27-31); Mean Corpuscular Volume 84 fL (80-97); Mean Platelet Volume 8.6 fL (7.4-10.4); Platelet Count 165 10^3/uL (150-450); Red Blood Count 3.82 10^6 /uL (3.70-4.87); Red Cell Distribution Width 16 % (10.5-15); White Blood Count 10.4 10^3/uL (3.5-10.8)
[2019-04-12 06:08] LABS: BUN/Creatinine Ratio 25.8 (8-20); Calcium 8.7 mg/dL (8.6-10.3); EGFR African American 42.1 (>60); EGFR Non-African American 34.8 (>60); Potassium 4.6 mmol/L (3.5-5.0)
[2019-04-12] MEDS: Losartan TAB* 25 MG PO SCH (09:45)
[2019-04-12] MEDS: Pregabalin CAP(*) 100 MG PO SCH (09:45)
[2019-04-12] MEDS: DULoxetine DR CAP* 60 MG CAP.DR PO SCH (09:46)
[2019-04-12] MEDS: Pantoprazole TAB * 40 MG TAB PO SCH ×2 (09:46→22:27)
[2019-04-12] MEDS: Aspirin EC TAB* 81 MG TAB.EC PO SCH (09:46)
[2019-04-12] MEDS ORDERED: ZOSYN 3.375 GM Q12H per EXTENDED INFUSION IVPB SCH ×2 (10:00)
[2019-04-12] MEDS: Heparin VIAL(*) 5000 UNITS/ML VIAL (FIVE THOUSAND) SUBCUT SCH ×2 (13:43→22:27)
[2019-04-12] MEDS: fentaNYL* 50 MCG/ML 2 ML VIAL (100 MCG VIAL) IV SLOW PU PRN (16:15)
--- NOTE | 2019-04-12 17:28 | PN ---
Date of Service: 04/12/19 Critical Care Services: New problem today - fever to 101.1 - has enterococcus in urine and being treated with ampicillin. Creatinine is improving. Vital Signs: Temp Pulse Resp BP SpO2 FiO2 100.8 F 63 21 98/59 94 100 Physical Exam: Gen:Awake and appropriate HEENT:OP clear Lungs:Scattered rhonchi Extremities: No cyanosis Neuro: Dense left hemiplegia Fluid Balance (Past 24 Hours): 04/11/19 04/12/19 06:59 06:59 Intake Total 2109 2656 Output Total 560 2405 Balance 1549 251 Weight 256 lb 9.889 oz 253 lb 8.505 oz Intake: IV Fluids 1949 2056 LR 857 1894 ZOSYN 92 162 IVPB 100 LR 100 Oral 60 600 Output: Urine 40 Fox 520 2405 Labs: Laboratory Results - last 24 hr 04/12/19 04/12/19 05:05 05:05 WBC 10.4 RBC 3.82 Hgb 10.8 L Hct 32 L MCV 84 MCH 28 MCHC 34 RDW 16 H Plt Count 165 MPV 8.6 Sodium 135 Potassium 4.6 Chloride 98 L Carbon Dioxide 29 Anion Gap 8 BUN 39 H Creatinine 1.51 H Est GFR ( Amer) 42.1 Est GFR (Non-Af Amer) 34.8 BUN/Creatinine Ratio 25.8 H Glucose 188 H Calcium 8.7 Studies: CXR: Increased interstitial markings - could represent pneumonia, CHF, or chronic changes. Nutrition: Pureed diet Impression: 1. Source of new fever is unclear - has a UTI and could have a pneumonia - recurrent aspiration is always a risk in this patient. Plan: Will switch from ampicillin to PIP/TAZO for more broad spectrum coverage.
[2019-04-12] MEDS ORDERED: Zosyn per Pharmacy* NOTE FOLLOW UP SCH (18:00)
[2019-04-12] MEDS ORDERED: Ampicillin ADVAN(*) 2 GM in NS 0.9% 100 ML* 100 ML IVPB SCH (18:00)
[2019-04-12] MEDS: ZOSYN 3.375 GM Q8H per EXTENDED INFUSION IVPB SCH ×2 (19:19)
[2019-04-12] MEDS: Atorvastatin* 80 MG TAB PO SCH (19:19)
[2019-04-12] MEDS: Nystatin TOP POWDER* 15 GM BTL TOPICAL SCH (22:27)
[2019-04-12] MEDS: Lactated Ringers 1000 ML Bag* 1,000 ML IV SCH (22:35)
[2019-04-13] MEDS: fentaNYL* 50 MCG/ML 2 ML VIAL (100 MCG VIAL) IV SLOW PU PRN ×3 (00:08→19:33)
[2019-04-13] MEDS: ZOSYN 3.375 GM Q8H per EXTENDED INFUSION IVPB SCH ×6 (02:05→19:30)
[2019-04-13] MEDS ORDERED: Acetaminophen TAB* 325 MG PO PRN (04:24)
[2019-04-13 05:20] LABS: Hematocrit 33 % (35-47); Hemoglobin 10.8 g/dL (12.0-16.0); Mean Corpuscular HGB Conc 33 g/dL (31-36); Mean Corpuscular Hemoglobin 28 pg (27-31); Mean Corpuscular Volume 83 fL (80-97); Mean Platelet Volume 8.4 fL (7.4-10.4); Platelet Count 166 10^3/uL (150-450); Red Blood Count 3.89 10^6 /uL (3.70-4.87); Red Cell Distribution Width 17 % (10.5-15); White Blood Count 9.5 10^3/uL (3.5-10.8)
[2019-04-13 05:48] LABS: BUN/Creatinine Ratio 21.2 (8-20); Calcium 8.8 mg/dL (8.6-10.3); EGFR African American 68.5 (>60); EGFR Non-African American 56.7 (>60); Potassium 3.9 mmol/L (3.5-5.0)
[2019-04-13] MEDS: Levothyroxine TAB* 125 MCG TAB PO SCH (06:49)
[2019-04-13] MEDS: Heparin VIAL(*) 5000 UNITS/ML VIAL (FIVE THOUSAND) SUBCUT SCH ×2 (09:24→19:33)
[2019-04-13] MEDS: Pantoprazole TAB * 40 MG TAB PO SCH ×2 (09:25→19:31)
[2019-04-13] MEDS: DULoxetine DR CAP* 60 MG CAP.DR PO SCH (09:25)
[2019-04-13] MEDS: Losartan TAB* 25 MG PO SCH (09:25)
[2019-04-13] MEDS: Pregabalin CAP(*) 100 MG PO SCH (09:25)
[2019-04-13] MEDS: Aspirin EC TAB* 81 MG TAB.EC PO SCH (09:25)
[2019-04-13] MEDS: Acetaminophen / Codeine* #3 (300 MG/30 MG) TAB PO PRN ×2 (10:06→20:58)
[2019-04-13] MEDS: Nystatin TOP POWDER* 15 GM BTL TOPICAL SCH ×2 (11:03→19:30)
--- NOTE | 2019-04-13 11:48 | PN ---
Date of Service: 04/13/19 Critical Care Services: More alert today and O2 requirement has dropped - is off vapotherm and on nasal O2 at 10 L/min. CXR today shows patchy infiltrates in both lungs, consistent with pneumonia or CHF. However, patient is improved well clinically, and is up in a chair today. Vital Signs: Temp Pulse Resp BP SpO2 FiO2 100.2 F 76 19 129/58 97 70 Physical Exam: Gen:Alert, oriented, breathing comfortably HEENT:Left facial palsy Lungs:Clear Extremities:Left hemiplegia Fluid Balance (Past 24 Hours): 04/12/19 04/13/19 06:59 06:59 Intake Total 2656 3994 Output Total 2405 3155 Balance 251 839 Weight 253 lb 251 lb Intake: IV Fluids 6 1667 LR 1894 1405 ZOSYN 162 262 IVPB 317 LR 317 Oral 600 2010 Output: Urine Fox 2405 3155 Other: Date of Last Bowel unknown Movement Labs: 04/13/19 04/13/19 05:05 05:05 WBC 9.5 RBC 3.89 Hgb 10.8 L Hct 33 L MCV 83 MCH 28 MCHC 33 RDW 17 H Plt Count 166 MPV 8.4 Sodium 133 L Potassium 3.9 Chloride 98 L Carbon Dioxide 29 Anion Gap 6 BUN 21 Creatinine 0.99 Glucose 200 Calcium 8.8 Studies: CXR: Patchy infiltrates in both lungs L>R Nutrition: Pureed diet Impression: New radiographic findings most likely represent aspiration pneumonia, but patient is doing well clinically. Plan: 1. Continue PIP/TAZO to cover both aspiration and enterococcal UTI 2. Continue pureed diet for aspiration risk 3. Will transfer out of ICU today.
[2019-04-13] MEDS: Lactated Ringers 1000 ML Bag* 1,000 ML IV SCH (13:02)
[2019-04-13] MEDS ORDERED: NS 0.9% 100 ML* 100 ML ONE (18:14)
[2019-04-13] MEDS: Atorvastatin* 80 MG TAB PO SCH (18:17)
[2019-04-14] MEDS: Lactated Ringers 1000 ML Bag* 1,000 ML IV SCH ×2 (00:55→03:30)
[2019-04-14] MEDS: ZOSYN 3.375 GM Q8H per EXTENDED INFUSION IVPB SCH ×6 (01:06→17:43)
[2019-04-14] MEDS: fentaNYL* 50 MCG/ML 2 ML VIAL (100 MCG VIAL) IV SLOW PU PRN ×5 (01:50→22:38)
[2019-04-14] MEDS ORDERED: amLODIPine TAB* 5 MG PO ONE (03:38)
[2019-04-14] MEDS: Levothyroxine TAB* 125 MCG TAB PO SCH (05:51)
[2019-04-14] MEDS ORDERED: Dextrose 50% Syringe 50 ML* 25 GM/50 ML SYRINGE IV PUSH PRN (06:23)
[2019-04-14 08:17] LABS: Hematocrit 33 % (35-47); Hemoglobin 11.1 g/dL (12.0-16.0); Mean Corpuscular HGB Conc 33 g/dL (31-36); Mean Corpuscular Hemoglobin 28 pg (27-31); Mean Corpuscular Volume 84 fL (80-97); Mean Platelet Volume 8.6 fL (7.4-10.4); Platelet Count 161 10^3/uL (150-450); Red Blood Count 3.99 10^6 /uL (3.70-4.87); Red Cell Distribution Width 16 % (10.5-15); White Blood Count 6.7 10^3/uL (3.5-10.8)
[2019-04-14] MEDS: DULoxetine DR CAP* 60 MG CAP.DR PO SCH (08:24)
[2019-04-14] MEDS: Acetaminophen / Codeine* #3 (300 MG/30 MG) TAB PO PRN ×3 (08:24→21:00)
[2019-04-14] MEDS: Pregabalin CAP(*) 100 MG PO SCH (08:25)
[2019-04-14] MEDS: Pantoprazole TAB * 40 MG TAB PO SCH ×2 (08:26→21:00)
[2019-04-14] MEDS: Losartan TAB* 25 MG PO SCH (08:26)
[2019-04-14] MEDS: Heparin VIAL(*) 5000 UNITS/ML VIAL (FIVE THOUSAND) SUBCUT SCH ×2 (08:26→21:05)
[2019-04-14] MEDS: Aspirin EC TAB* 81 MG TAB.EC PO SCH (08:26)
[2019-04-14] MEDS: Insulin LISPRO* 1 UNITS UNIT SUBCUT SCH ×4 (08:27→21:05)
[2019-04-14 08:30] LABS: Calcium 8.8 mg/dL (8.6-10.3); EGFR African American 94.4 (>60); Potassium 3.4 mmol/L (3.5-5.0)
[2019-04-14 08:44] LABS: TSH (Thyroid Stimulating Horm) 1.76 mcIU/mL (0.34-5.60)
[2019-04-14] MEDS: Nystatin TOP POWDER* 15 GM BTL TOPICAL SCH ×2 (10:00→21:07)
--- NOTE | 2019-04-14 17:37 | PN ---
Subjective Date of Service: 04/14/19 Interval History: Denies any complaints.SOB improving.No cough Objective Active Medications: Acetaminophen (Tylenol Tab*) 650 mg PO Q4H PRN PRN Reason: FEVER/PAIN Last Admin: 04/13/19 04:32 Dose: 650 mg Acetaminophen/Codeine Phosphate (Tylenol/Codeine 30 Mg Tab*) 1 tab PO Q6H PRN PRN Reason: PAIN Last Admin: 04/14/19 14:42 Dose: 1 tab Amlodipine Besylate (Norvasc Tab*) 10 mg PO BEDTIME [facility] Aspirin (Aspirin Ec Tab*) 81 mg PO DAILY [facility] Last Admin: 04/14/19 08:26 Dose: 81 mg Atorvastatin Calcium (Lipitor*) 80 mg PO QPM [facility] Last Admin: 04/13/19 18:17 Dose: 80 mg Dextrose (D50w Syringe 50 Ml*) 12.5 gm IV PUSH .FOR FS < 60 - SS PRN PRN Reason: FS < 60 Duloxetine HCl (Cymbalta Cap*) 60 mg PO DAILY [facility] Last Admin: 04/14/19 08:24 Dose: 60 mg Fenofibrate (Tricor 160 Mg) 160 mg PO DAILY [facility] Last Admin: 04/14/19 08:25 Dose: 160 mg Fentanyl Citrate (Fentanyl*) 25 mcg IV SLOW PU Q4H PRN PRN Reason: PAIN Last Admin: 04/14/19 14:42 Dose: 25 mcg Heparin Sodium (Porcine) (Heparin Vial(*)) 5,000 units SUBCUT Q12HR [facility] Last Admin: 04/14/19 08:26 Dose: 5,000 units Piperacillin Sod/Tazobactam (Sod 3.375 gm/ Sodium Chloride) 100 mls @ 25 mls/ hr IVPB Q8H [facility] Last Admin: 04/14/19 12:00 Dose: 25 mls/hr Insulin Human Lispro (Humalog*) 0 units SUBCUT ACHS [facility]; Protocol Last Admin: 04/14/19 14:28 Dose: 3 units Levothyroxine Sodium (Synthroid Tab*) 250 mcg PO DAILY@0600 [facility] Last Admin: 04/14/19 05:51 Dose: 250 mcg Losartan Potassium (Cozaar Tab*) 100 mg PO DAILY [facility] Last Admin: 04/14/19 08:26 Dose: 100 mg Nystatin (Nystatin Top Powder*) 1 applic TOPICAL BID [facility] Last Admin: 04/13/19 19:30 Dose: 1 applic Pantoprazole Sodium (Protonix Tab*) 40 mg PO BID [facility] Last Admin: 04/14/19 08:26 Dose: 40 mg Pharmacy Consult (Zosyn Per Pharmacy*) 1 note FOLLOW UP .ZOSYN PER PHARMACY [facility] Pregabalin (Lyrica Cap(*)) 100 mg PO DAILY [facility] Last Admin: 04/14/19 08:25 Dose: 100 mg Vital Signs - 8 hr 04/14/19 14:42 Respiratory 16 Rate Oxygen Devices in Use Now: Nasal Cannula, High Flow Nasal Cannula Eyes: No Scleral Icterus Ears/Nose/Mouth/Throat: NL Teeth, Lips, Gums Neck: NL Appearance and Movements; NL JVP Respiratory: Clear to Auscultation, Clear to Percussion Cardiovascular: NL Sounds; No Murmurs; No JVD Abdominal: NL Sounds; No Tenderness; No Distention Extremities: No Edema Skin: No Rash or Ulcers Neurological: Alert and Oriented x 3 Result Diagrams: 04/14/19 07:35 04/14/19 07:35 Additional Lab and Data: Lab Results 04/10/19 Range/Units 15:25 Patient Temperature Not Reportable ABG pH 7.40 (7.35-7.45) ABG pH (Temp Correct) Not Reportable ABG pCO2 51 H (35-45) mmHg ABG pCO2 (Temp Corrct Not Reportable ABG pO2 122 H (80-100) mmHg ABG pO2 (Temp Correct Not Reportable ABG HCO3 29.2 (19-31) mmol/L ABG O2 Saturation 99.3 H (94.0-98.0) % ABG Base Excess 5.5 H (-2.0-2.0) mmol/L Respiration Rate Not Reportable O2 Delivery Device vapo Ventilator Type Not Reportable Vent Mode Not Reportable FiO2 100 Inspiratory Time Not Reportable PEEP Not Reportable Pressure Support Not Reportable Pressure Control Not Reportable EPAP Not Reportable IPAP Not Reportable BiPAP Not Reportable Microbiology and Other Data: Microbiology 04/10/19 15:55 Aerobic Blood Culture - Preliminary Blood Venous No Growth Day 4 Anaerobic Blood Culture - Preliminary No Growth Day 4 04/10/19 15:55 Aerobic Blood Culture - Preliminary Blood Venous No Growth Day 4 Anaerobic Blood Culture - Preliminary No Growth Day 4 04/10/19 17:45 Urine Culture - Final Urine Enterococcus Faecalis 04/10/19 17:15 Nasal Screen MRSA (PCR) - Final Nasal Mrsa Not Detected Assess/Plan/Problems-Billing Assessment: - Patient Problems (1) Aspiration pneumonia Current Visit: Yes Status: Acute Code(s): J69.0 - PNEUMONITIS DUE TO INHALATION OF FOOD AND VOMIT SNOMED Code(s): 014863486 Comment: Transferred from ICU Vapotherm first titrated to NC Improving on Zosyn Continue Zosyn Leukocytosis and SOB improved Aspiration precautions, dysphagia diet (2) UTI (urinary tract infection) due to Enterococcus Current Visit: Yes Status: Acute Code(s): N39.0 - URINARY TRACT INFECTION, SITE NOT SPECIFIED; B95.2 - ENTEROCOCCUS THE CAUSE OF DISEASES CLASSIFIED ELSEWHERE SNOMED Code(s): 766412793434118 Comment: Enteroccus on cx Ampicillin sensitive Continue Zosyn (3) Hypertension Current Visit: Yes Status: Acute Code(s): I10 - ESSENTIAL (PRIMARY) HYPERTENSION SNOMED Code(s): 31790487 Comment: Continue Amlodipine and Losartan (4) Diabetes Current Visit: Yes Status: Acute Code(s): E11.9 - TYPE 2 DIABETES MELLITUS WITHOUT COMPLICATIONS SNOMED Code(s): 60667591 Comment: ISS
[2019-04-14] MEDS: Atorvastatin* 80 MG TAB PO SCH (17:43)
[2019-04-14] MEDS: amLODIPine TAB* 5 MG PO SCH (21:01)
[2019-04-15] MEDS: ZOSYN 3.375 GM Q8H per EXTENDED INFUSION IVPB SCH ×6 (01:50→17:45)
[2019-04-15] MEDS: fentaNYL* 50 MCG/ML 2 ML VIAL (100 MCG VIAL) IV SLOW PU PRN ×2 (03:44→07:49)
[2019-04-15] MEDS: Levothyroxine TAB* 125 MCG TAB PO SCH (05:54)
[2019-04-15 07:06] LABS: ABS Eosinophils 0.2 10^3/ul (0-0.6); ABS Lymphocytes 0.9 10^3/ul (1.0-4.8); ABS Monocytes 0.5 10^3/ul (0-0.8); ABS Neutrophils 4.1 10^3/ul (1.5-7.7); Eosinophil % 3.7 %; Hematocrit 34 % (35-47); Hemoglobin 11.3 g/dL (12.0-16.0); Lymphocyte % 16.2 %; Mean Corpuscular HGB Conc 33 g/dL (31-36); Mean Corpuscular Hemoglobin 28 pg (27-31); Mean Corpuscular Volume 83 fL (80-97); Mean Platelet Volume 8.1 fL (7.4-10.4); Platelet Count 167 10^3/uL (150-450); Red Blood Count 4.09 10^6 /uL (3.70-4.87); Red Cell Distribution Width 16 % (10.5-15); White Blood Count 5.8 10^3/uL (3.5-10.8)
[2019-04-15 07:41] LABS: BUN/Creatinine Ratio 15.4 (8-20); Calcium 8.8 mg/dL (8.6-10.3); EGFR African American 111.4 (>60); EGFR Non-African American 92.1 (>60); Potassium 3.3 mmol/L (3.5-5.0)
[2019-04-15] MEDS: Aspirin EC TAB* 81 MG TAB.EC PO SCH (07:48)
[2019-04-15] MEDS: DULoxetine DR CAP* 60 MG CAP.DR PO SCH (07:48)
[2019-04-15] MEDS: Pregabalin CAP(*) 100 MG PO SCH (08:50)
[2019-04-15] MEDS: Pantoprazole TAB * 40 MG TAB PO SCH ×2 (08:50→21:02)
[2019-04-15] MEDS: Insulin LISPRO* 1 UNITS UNIT SUBCUT SCH ×4 (08:51→21:03)
[2019-04-15] MEDS: Losartan TAB* 25 MG PO SCH (08:51)
[2019-04-15] MEDS: Heparin VIAL(*) 5000 UNITS/ML VIAL (FIVE THOUSAND) SUBCUT SCH ×2 (08:51→21:03)
[2019-04-15] MEDS: Nystatin TOP POWDER* 15 GM BTL TOPICAL SCH ×2 (10:15→21:03)
[2019-04-15] MEDS ORDERED: Potassium Chloride* LIQUID 20 MEQ/15 ML UDC PO ONE (10:17)
[2019-04-15] MEDS: Morphine ORAL.SOLN 10 mg* 2 MG/ML UDC 5 ml PO PRN (11:24)
--- NOTE | 2019-04-15 15:43 | PN ---
Subjective Date of Service: 04/15/19 Interval History: Patient is feeling better today. Patient has continued shortness of breath on exertion, but this is improving. Patient denies cough, F/C, Cp, N/V, abdominal pain, abdominal pain, or diarrhea. Family History: Unchanged from Admission Social History: Unchanged from Admission Past Medical History: Unchanged from Admission Objective Active Medications: Acetaminophen (Tylenol Tab*) 650 mg PO Q4H PRN PRN Reason: FEVER/PAIN Last Admin: 04/13/19 04:32 Dose: 650 mg Acetaminophen/Codeine Phosphate (Tylenol/Codeine 30 Mg Tab*) 1 tab PO Q6H PRN PRN Reason: PAIN Last Admin: 04/14/19 21:00 Dose: 1 tab Amlodipine Besylate (Norvasc Tab*) 10 mg PO BEDTIME [facility] [place] Last Admin: 04/14/19 21:01 Dose: 10 mg Aspirin (Aspirin Ec Tab*) 81 mg PO DAILY [facility] Last Admin: 04/15/19 07:48 Dose: 81 mg Atorvastatin Calcium (Lipitor*) 80 mg PO QPM [facility] Last Admin: 04/14/19 17:43 Dose: 80 mg Carvedilol (Coreg Tab*) 6.25 mg PO BID [facility] [place] Dextrose (D50w Syringe 50 Ml*) 12.5 gm IV PUSH .FOR FS < 60 - SS PRN PRN Reason: FS < 60 Duloxetine HCl (Cymbalta Cap*) 60 mg PO DAILY [facility] [place] Last Admin: 04/15/19 07:48 Dose: 60 mg Fenofibrate (Tricor 160 Mg) 160 mg PO DAILY [facility] [place] Last Admin: 04/15/19 07:48 Dose: 160 mg Heparin Sodium (Porcine) (Heparin Vial(*)) 5,000 units SUBCUT Q12HR [facility] [place] Last Admin: 04/15/19 08:51 Dose: 5,000 units Piperacillin Sod/Tazobactam (Sod 3.375 gm/ Sodium Chloride) 100 mls @ 25 mls/ hr IVPB Q8H [facility] [place] Last Admin: 04/15/19 11:22 Dose: 25 mls/hr Insulin Human Lispro (Humalog*) 0 units SUBCUT ACHS [facility] [place]; Protocol Last Admin: 04/15/19 13:49 Dose: 6 units Levothyroxine Sodium (Synthroid Tab*) 250 mcg PO DAILY@0600 [facility] [place] Last Admin: 04/15/19 05:54 Dose: 250 mcg Losartan Potassium (Cozaar Tab*) 100 mg PO DAILY [facility] [place] Last Admin: 04/15/19 08:51 Dose: 100 mg Morphine Sulfate (Ms Contin(*)) 30 mg PO BID PRN PRN Reason: PAIN - UNRELIEVED Morphine Sulfate (Morphine Oral.Soln 10 Mg*) 15 mg PO Q6HR PRN PRN Reason: PAIN - BREAKTHROUGH Last Admin: 04/15/19 11:24 Dose: 15 mg Nystatin (Nystatin Top Powder*) 1 applic TOPICAL BID [facility] [place] Last Admin: 04/15/19 10:15 Dose: 1 applic Pantoprazole Sodium (Protonix Tab*) 40 mg PO BID [facility] [place] Last Admin: 04/15/19 08:50 Dose: 40 mg Pharmacy Consult (Zosyn Per Pharmacy*) 1 note FOLLOW UP .ZOSYN PER PHARMACY [facility] [place] Pregabalin (Lyrica Cap(*)) 100 mg PO DAILY [facility] [place] Last Admin: 04/15/19 08:50 Dose: 100 mg Ropinirole HCl (Requip Tab*) 0.5 mg PO BEDTIME [facility] [place] Vital Signs - 8 hr 04/15/19 04/15/19 04/15/19 07:49 08:50 11:24 Temperature Pulse Rate Respiratory 20 16 16 Rate Blood Pressure (mmHg) O2 Sat by Pulse Oximetry 04/15/19 04/15/19 11:30 13:51 Temperature 98.2 F Pulse Rate 53 Respiratory 18 18 Rate Blood Pressure 137/61 (mmHg) O2 Sat by Pulse 100 Oximetry Oxygen Devices in Use Now: Nasal Cannula Appearance: Patient is a 63yo female who appears stated age and is sitting in the bed in [facility]. Eyes: No Scleral Icterus, PERRLA Ears/Nose/Mouth/Throat: NL Teeth, Lips, Gums, Clear Oropharnyx, Mucous Membranes Moist Neck: NL Appearance and Movements; NL JVP, Trachea Midline Respiratory: Symmetrical Chest Expansion and Respiratory Effort, Clear to Auscultation Cardiovascular: NL Sounds; No Murmurs; No JVD, RRR, No Edema Abdominal: NL Sounds; No Tenderness; No Distention, No Hepatosplenomegaly Lymphatic: No Cervical Adenopathy Extremities: No Edema, No Clubbing, Cyanosis Skin: No Nodules or Sclerosis, - - Incision on angle of jaw on right side. Neurological: Alert and Oriented x 3, - - Dense Left sided hemiparesis. Result Diagrams: 04/15/19 06:59 04/15/19 06:59 Additional Lab and Data: Lab Results Microbiology and Other Data: Microbiology 04/10/19 15:55 Aerobic Blood Culture - Preliminary Blood Venous No Growth Day 4 Anaerobic Blood Culture - Preliminary No Growth Day 4 04/10/19 15:55 Aerobic Blood Culture - Preliminary Blood Venous No Growth Day 4 Anaerobic Blood Culture - Preliminary No Growth Day 4 04/10/19 17:45 Urine Culture - Final Urine Enterococcus Faecalis 04/10/19 17:15 Nasal Screen MRSA (PCR) - Final Nasal Mrsa Not Detected Assess/Plan/Problems-Billing Assessment: Patient is a 63yo female with a PMH for recent CVA, HTN, HLD, DM II, who is admitted with acute hypoxic respiratory failure due to probable aspiration. Patient is improving and is weaning off oxygen well. - Patient Problems (1) Aspiration pneumonia Current Visit: Yes Status: Acute Code(s): J69.0 - PNEUMONITIS DUE TO INHALATION OF FOOD AND VOMIT SNOMED Code(s): 568246036 Comment: - Vapotherm needed first, then titrated to NC - Continue Zosyn - Leukocytosis and SOB improved - Aspiration precautions, dysphagia diet per [employer] (2) CVA (cerebral vascular accident) Current Visit: Yes Status: Acute Code(s): I63.9 - CEREBRAL INFARCTION, UNSPECIFIED SNOMED Code(s): 897109200 Comment: - Due to carotid occlusion - With left sided hemiparesis and dysphagia - Continue secondary prevention. (3) Acute respiratory failure with hypoxia Current Visit: Yes Status: Acute Code(s): J96.01 - ACUTE RESPIRATORY FAILURE WITH HYPOXIA SNOMED Code(s): 87059424 Comment: - Due to above. Resolving, on 5L NC. (4) Diabetes Current Visit: Yes Status: Acute Code(s): E11.9 - TYPE 2 DIABETES MELLITUS WITHOUT COMPLICATIONS SNOMED Code(s): 83468266 Comment: - Good control on ISS. (5) Hypertension Current Visit: Yes Status: Acute Code(s): I10 - ESSENTIAL (PRIMARY) HYPERTENSION SNOMED Code(s): 27451301 Comment: - Normotensive. -Continue Amlodipine and Losartan (6) UTI (urinary tract infection) due to Enterococcus Current Visit: Yes Status: Acute Code(s): N39.0 - URINARY TRACT INFECTION, SITE NOT SPECIFIED; B95.2 - ENTEROCOCCUS THE CAUSE OF DISEASES CLASSIFIED ELSEWHERE SNOMED Code(s): 747569540991431 Comment: - Enteroccus on cx - Ampicillin sensitive - Continue Zosyn (7) DVT prophylaxis Current Visit: Yes Status: Acute Code(s): Z29.9 - ENCOUNTER FOR PROPHYLACTIC MEASURES, UNSPECIFIED SNOMED Code(s): 145259333 Comment: - HSQ (8) DNR (do not resuscitate) Current Visit: Yes Status: Acute Status and Disposition: Hopeful D/C back to [facility] tomorrow.
[2019-04-15] MEDS: Atorvastatin* 80 MG TAB PO SCH (17:45)
[2019-04-15] MEDS: Morphine TAB Extended Release (*) 30 MG TAB.ER PO PRN (18:25)
[2019-04-15] MEDS: amLODIPine TAB* 5 MG PO SCH (21:02)
[2019-04-15] MEDS: Ropinirole TAB* 0.5 MG TAB PO SCH (21:02)
[2019-04-15] MEDS: Carvedilol TAB* 6.25 MG PO SCH (21:02)
[2019-04-16] MEDS: traZODone TAB* 50 MG TAB PO SCH ×2 (00:33→22:17)
[2019-04-16] MEDS: Morphine ORAL.SOLN 10 mg* 2 MG/ML UDC 5 ml PO PRN ×3 (00:34→20:17)
[2019-04-16] MEDS: ZOSYN 3.375 GM Q8H per EXTENDED INFUSION IVPB SCH ×6 (00:36→17:55)
[2019-04-16] MEDS: Acetaminophen / Codeine* #3 (300 MG/30 MG) TAB PO PRN ×2 (04:31→15:49)
[2019-04-16] MEDS: Levothyroxine TAB* 125 MCG TAB PO SCH (04:31)
[2019-04-16] MEDS: Losartan TAB* 25 MG PO SCH (08:47)
[2019-04-16] MEDS: Carvedilol TAB* 6.25 MG PO SCH ×2 (08:47→22:19)
[2019-04-16] MEDS: Aspirin EC TAB* 81 MG TAB.EC PO SCH (08:47)
[2019-04-16] MEDS: Pantoprazole TAB * 40 MG TAB PO SCH ×2 (08:47→22:19)
[2019-04-16] MEDS: Heparin VIAL(*) 5000 UNITS/ML VIAL (FIVE THOUSAND) SUBCUT SCH ×2 (08:48→22:11)
[2019-04-16] MEDS: DULoxetine DR CAP* 60 MG CAP.DR PO SCH (08:48)
[2019-04-16] MEDS: Pregabalin CAP(*) 100 MG PO SCH (08:48)
[2019-04-16] MEDS: Insulin LISPRO* 1 UNITS UNIT SUBCUT SCH ×4 (08:49→22:10)
[2019-04-16] MEDS: Nystatin TOP POWDER* 15 GM BTL TOPICAL SCH ×2 (08:58→22:26)
[2019-04-16 09:10] LABS: ABS Eosinophils 0.3 10^3/ul (0-0.6); ABS Lymphocytes 1.3 10^3/ul (1.0-4.8); ABS Monocytes 0.4 10^3/ul (0-0.8); Eosinophil % 5.1 %; Hematocrit 32 % (35-47); Hemoglobin 10.7 g/dL (12.0-16.0); Lymphocyte % 25.5 %; Mean Corpuscular HGB Conc 33 g/dL (31-36); Mean Corpuscular Hemoglobin 28 pg (27-31); Mean Corpuscular Volume 83 fL (80-97); Mean Platelet Volume 8.4 fL (7.4-10.4); Platelet Count 168 10^3/uL (150-450); Red Blood Count 3.85 10^6 /uL (3.70-4.87); Red Cell Distribution Width 16 % (10.5-15)
[2019-04-16 09:25] LABS: BUN/Creatinine Ratio 18.7 (8-20); Calcium 8.7 mg/dL (8.6-10.3); EGFR African American 94.4 (>60); Potassium 3.7 mmol/L (3.5-5.0)
[2019-04-16] MEDS: Morphine TAB Extended Release (*) 30 MG TAB.ER PO PRN (12:27)
--- NOTE | 2019-04-16 14:58 | DS ---
CC: Ruth Ledezma NP; Dr. Maricarmen Lennon; Dr. Jana Hernández* DISCHARGE SUMMARY: DATE OF ADMISSION: 04/10/19 DATE OF DISCHARGE: 04/16/19 PRIMARY CARE PROVIDER: Ruth Ledezma NP. The patient's current physician is Dr. Maricarmen Lennon at [facility]. MY ATTENDING WHILE IN THE HOSPITAL: Dr. Jana Hernández* (dictated by GINA Toscano). PRIMARY DISCHARGE DIAGNOSES: 1. Aspiration pneumonia. 2. Acute hypoxic respiratory failure, resolved. SECONDARY DISCHARGE DIAGNOSES: 1. Recent cerebrovascular accident with dysphagia and dense left-sided hemiparesis. 2. Diabetes mellitus type 2, non-insulin dependent. 3. Breast cancer, status post lumpectomy. 4. Hypertension. STUDIES DONE WHILE IN THE HOSPITAL: Brain CT from 04/10/19 read as findings most consistent with right middle cerebral artery subacute infarct with mass effect. In addition, there is slightly increased density within the infract suggesting hemorrhage. Chest x-ray from 04/10/19 read as obstructive lung disease, no acute cardiopulmonary process evident. Chest x-ray 04/12/19 read as likely interstitial edema, right basilar atelectasis. Chest x-ray from 04/13/19 read as bilateral pneumonia, left greater than right with interval worsening. MEDICATIONS AT DISCHARGE: 1. Pantoprazole 40 mg p.o. b.i.d. 2. Morphine sulfate 15 mg p.o. q.4 hours as needed. 3. Morphine sulfate 30 mg p.o. b.i.d. as needed. 4. Zofran 4 mg p.o. q.4 hours as needed. 5. Duloxetine 60 mg p.o. daily. 6. Levothyroxine 250 mcg p.o. daily. 7. Pregabalin 150 mg p.o. b.i.d. 8. Spironolactone 50 mg p.o. daily. 9. Requip 0.5 mg p.o. at bedtime. 10. Carvedilol 6.25 mg p.o. b.i.d. 11. Nicotine patch 20 mg transdermal daily. 12. Metformin 500 mg p.o. daily. 13. Losartan 100 mg p.o. daily. 14. Hyzaar 50/12.5 one tab p.o. daily. 15. Fenofibrate 160 mg p.o. daily. 16. Atorvastatin 80 mg p.o. daily. 17. Amlodipine 10 mg p.o. daily. 18. Aspirin 81 mg p.o. daily. 19. Nystatin 1 application topical b.i.d. 20. Augmentin 875 mg p.o. b.i.d. x10 doses. New medications at discharge: 1. Tylenol. 2. Nystatin. 3. Augmentin. Medications discontinued at discharge: Tylenol PM. HOSPITAL COURSE: This is a brief summary of the patient's presentation. For more details, please see history and physical from Dr. Harmeet Noe on 04/10/19. In brief, the patient is a 63-year-old female with a past medical history significant for the above, who presented to the emergency department after being referred from a [facility] where is currently undergoing rehab for an episode of unresponsiveness after eating with concern for aspiration and new onset respiratory failure requiring 15 L of oxygen mask as stated above, 90% saturation. The patient came to the emergency department, was hypotensive, hypoxic, requiring Vapotherm. White blood cell count of 15,000. The patient was given fluids to which her blood pressure responded and not needed vasopressive agents. The patient was needed to be transitioned to BiPAP, but then weaned back to Vapotherm and then high flow nasal cannula. The patient was started on high fevers up to 102. The patient was started on initially ampicillin for urinary tract infection with enterococcus and then was transitioned to Zosyn due to concern for aspiration pneumonia. The patient improved, so transferred out of the ICU on 04/13/19 on 10 L of oxygen via nasal cannula. The patient's oxygen was able to be continued to be weaned down to 2 L on 04/16/19. The patient's white blood cell count normalized. The patient had no recurrent episodes of hypotension, no recurrent fevers. The patient remained in her level of functionality while in the hospital. The patient was anxious and stable for discharge on 04/08/19 back to [facility] for continued rehab. PHYSICAL EXAMINATION ON DAY OF DISCHARGE: General: The patient is a 63-year- old female who appears her stated age and sitting comfortably in bed, in no acute distress. Vital Signs: At the time of evaluation, temperature 97.8, pulse rate is 65, respiratory rate 16, oxygen saturation 94% on 2 L, blood pressure 129/47. HEENT: Head normocephalic, atraumatic. Sclerae anicteric. No conjunctival injection. Nasal mucosa moist. Oral mucosa moist. No pharyngeal erythema, postnasal drip, or exudate. Neck: Supple. No lymphadenopathy. No carotid bruits. No JVD. Cardiac: Regular rate and rhythm. No clicks, murmurs, gallops, or rubs. Pulses 2+ in bilateral dorsalis pedis, posterior tibialis, and radial areas. Respiratory: Diminished throughout. Clear to auscultation bilaterally. No wheezes, rales, or rhonchi. Good air exchange bilaterally. Abdomen: Soft, nontender, nondistended. Bowel sounds present, normoactive in all 4 quadrants. No hepatosplenomegaly. No abdominal bruits auscultated. No hepatojugular reflux. Genitourinary: No suprapubic or CVA tenderness. Skin: Clean, dry, and intact. Neuro: Dense left -sided hemiparesis, left-sided facial droop. Unable to assess gait. Alert and oriented x3. Psychiatric: Pleasant and cooperative, somewhat discouraged by current health problems. DISCHARGE PLAN: The patient will be discharged back to [facility] where she will continue to work aggressively with Physical Therapy and Occupation Therapy , to return to her functional status and get her home. The patient will be continued on Augmentin for 10 more doses. The patient's oxygen will be weaned as needed. The patient should have a pureed diet with nectar thickened liquids per Speech-Language Pathology recommendation. Continue to work with Speech- Language Pathology. The patient should follow up with the facility's physician as scheduled. The patient will be continued on all home medications. The patient should follow up with her surgeon. She will follow up with her neurologist to discuss the results of her CT scan as above and for routine post stroke care. The patient, for secondary prevention of stroke, will be continued on aspirin given the patient's hemorrhage within the stroke. The patient will not be on Plavix until cleared by her outpatient neurologist. The patient, of note, did receive heparin subcu while in the hospital without worsening in her neurologic symptoms. DIET: The patient should have a consistent carbohydrate diet. ACTIVITIES: Engage in activities as tolerated. TIME SPENT: Approximately 60 minutes was spent on discharge of this patient, 30 of which spent [id number] with the patient obtaining history and physical and discussing the treatment plan. GINA TOSCANO [id number]/CPS #: [id number] KYLE
--- NOTE | 2019-04-16 15:08 | PN ---
Hospitalist Progress Note Date of Service: 04/16/19 Due to Recurrent Desaturations with weaning O2 and limited ability to increase O2 at [facility], will monitor again overnight and attempt to wean again in AM.
[2019-04-16] MEDS: Atorvastatin* 80 MG TAB PO SCH (17:54)
[2019-04-16] MEDS: Ropinirole TAB* 0.5 MG TAB PO SCH (22:15)
[2019-04-16] MEDS: amLODIPine TAB* 5 MG PO SCH (22:17)
[2019-04-17] MEDS: Morphine TAB Extended Release (*) 30 MG TAB.ER PO PRN (00:29)
[2019-04-17] MEDS: ZOSYN 3.375 GM Q8H per EXTENDED INFUSION IVPB SCH ×4 (02:12→09:50)
[2019-04-17] MEDS: Levothyroxine TAB* 125 MCG TAB PO SCH (06:16)
[2019-04-17 07:10] LABS: ABS Eosinophils 0.2 10^3/ul (0-0.6); ABS Lymphocytes 1.3 10^3/ul (1.0-4.8); ABS Monocytes 0.5 10^3/ul (0-0.8); ABS Neutrophils 3.3 10^3/ul (1.5-7.7); Eosinophil % 4.5 %; Hematocrit 34 % (35-47); Hemoglobin 11.2 g/dL (12.0-16.0); Lymphocyte % 24.2 %; Mean Corpuscular HGB Conc 33 g/dL (31-36); Mean Corpuscular Hemoglobin 28 pg (27-31); Mean Corpuscular Volume 84 fL (80-97); Mean Platelet Volume 8.1 fL (7.4-10.4); Platelet Count 168 10^3/uL (150-450); Red Blood Count 4.03 10^6 /uL (3.70-4.87); Red Cell Distribution Width 17 % (10.5-15); White Blood Count 5.3 10^3/uL (3.5-10.8)
[2019-04-17 07:32] LABS: BUN/Creatinine Ratio 18.2 (8-20); Calcium 8.7 mg/dL (8.6-10.3); EGFR African American 91.6 (>60); EGFR Non-African American 75.7 (>60); Potassium 3.8 mmol/L (3.5-5.0)
[2019-04-17] MEDS: Insulin LISPRO* 1 UNITS UNIT SUBCUT SCH ×2 (09:35→12:38)
[2019-04-17] MEDS: Losartan TAB* 25 MG PO SCH (09:35)
[2019-04-17] MEDS: DULoxetine DR CAP* 60 MG CAP.DR PO SCH (09:36)
[2019-04-17] MEDS: Carvedilol TAB* 6.25 MG PO SCH (09:36)
[2019-04-17] MEDS: Acetaminophen / Codeine* #3 (300 MG/30 MG) TAB PO PRN (09:36)
[2019-04-17] MEDS: Aspirin EC TAB* 81 MG TAB.EC PO SCH (09:36)
[2019-04-17] MEDS: Pregabalin CAP(*) 100 MG PO SCH (09:36)
[2019-04-17] MEDS: Heparin VIAL(*) 5000 UNITS/ML VIAL (FIVE THOUSAND) SUBCUT SCH (09:37)
[2019-04-17] MEDS: Pantoprazole TAB * 40 MG TAB PO SCH (09:37)
[2019-04-17] MEDS: Nystatin TOP POWDER* 15 GM BTL TOPICAL SCH (09:37)
[2019-04-17] MEDS: Morphine ORAL.SOLN 10 mg* 2 MG/ML UDC 5 ml PO PRN (10:07)
[2019-04-17 13:04] VITALS: BP 102/41
== END 2019-04-17 13:10 | DRG 177 ==
LOC: ED 14:36 → ICU 16:07 → MED 04-13 11:57
PROVIDERS: ADMIT Internal Medicine Critical Care Medicine; ATTEND Internal Medicine
PROC: 5A09357 Assistance with Respiratory Ventilation, Less than 24 Consecutive Hours, Continuous Positive Airway Pressure (ICD-10-PCS; principal; 2019-04-11)
DX: J69.0 Pneumonitis due to inhalation of food and vomit (principal); J96.01 Acute respiratory failure with hypoxia; I69.354 Hemiplegia and hemiparesis following cerebral infarction affecting left non-dominant side; N39.0 Urinary tract infection, site not specified; J44.9 Chronic obstructive pulmonary disease, unspecified; E03.9 Hypothyroidism, unspecified; E11.51 Type 2 diabetes mellitus with diabetic peripheral angiopathy without gangrene; E78.00 Pure hypercholesterolemia, unspecified; G47.30 Sleep apnea, unspecified; G43.909 Migraine, unspecified, not intractable, without status migrainosus; K21.9 Gastro-esophageal reflux disease without esophagitis; M19.90 Unspecified osteoarthritis, unspecified site; M79.7 Fibromyalgia; G89.29 Other chronic pain; M54.9 Dorsalgia, unspecified; F41.9 Anxiety disorder, unspecified; F17.210 Nicotine dependence, cigarettes, uncomplicated; F32.9 Major depressive disorder, single episode, unspecified; N28.9 Disorder of kidney and ureter, unspecified; B95.2 Enterococcus as the cause of diseases classified elsewhere; Z66 Do not resuscitate; Z88.1 Allergy status to other antibiotic agents; Z85.3 Personal history of malignant neoplasm of breast; Z83.3 Family history of diabetes mellitus; I69.391 Dysphagia following cerebral infarction; Z79.82 Long term (current) use of aspirin; I69.392 Facial weakness following cerebral infarction
CPT/HCPCS: 36415; 36600; 70450; 71045; 80048; 80053; 81003; 81015; 82803; 83036; 83605; 83735; 83880; 84443; 84484; 85025; 85027; 85379; 85610; 85730; 86140; 87040; 87077; 87086; 87186; 87641; 93005; 94660; 99285; 99406; A9270-GY; G8978-GP-CL; G8979-GP-CI; G8987-GO-CN; G8988-GO-CJ; J1644; J2543; J2930; J3010

== ENCOUNTER 2019-05-06 11:14 | Emergency (ER) | payer MEDICARE ==
--- NOTE | 2019-05-06 12:12 | ED ---
Neurological HPI - HPI Summary HPI Summary: This pt is a 64 y/o female presenting to [facility] via EMS from [facility] for headache, nausea, right hand jerk today. Pt reports she has been having a frontal headache since about 10:00 today. Denies hx of migraines. Pt notes she has been having nausea as well. She notes today her right hand jerked while in the bathroom and dropped the toilet paper she had in that hand. Denies fever, abd pain, diarrhea, chest pain, jaw pain, SOB, shoulder blade pain, dizziness, lightheadedness. Patient denies chills, erythema of eyes, sore throat, cough, dysuria, hematuria, myalgia, edema, rash. She does report falling 2 weeks ago where she hit the back of her neck. Pt had a stroke on 03/25/19 and now has left sided deficit, denies any difference today. She is a former smoker and states she has chronic wheezing. - History of Current Complaint Chief Complaint: EDNeurologicalDeficit Stated Complaint: HEADACHE, ABD PAIN PER EMS Time Seen by Provider: 05/06/19 11:39 Hx Obtained From: Patient Onset/Duration: Started hours ago, Still Present Current Severity: Mild Pain Intensity: 0 Pain Scale Used: 0-10 Numeric Character: Other: - Headache, nausea, right hand jerk Aggravating: Nothing Alleviating: Nothing Associated Signs and Symptoms: Positive: Headache, Nausea/Vomiting - Nausea. Negative: Loss of Consciousness, Dizziness, Lightheadness, Fever, Diarrhea, Chest Pain, Shortness of Breath - Additional Pertinent History Primary Care Physician: [id number] - Allergy/Home Medications Allergies/Adverse Reactions: Allergies Allergy/AdvReac Type Severity Reaction Status Date / Time cephalexin [From Keflex] Allergy Unknown Verified 03/26/19 00:15 Reaction Details niacin Allergy Hives/Diff. Verified 03/26/19 00:15 [From Niaspan Breathing/I Extended-Release] tching PMH/Surg Hx/FS Hx/Imm Hx Endocrine/Hematology History: Reports: Hx Diabetes - DM II, Hx Thyroid Disease - HYPOTHYROID Denies: Hx Bone Marrow Disease, Hx Sickle Cell Disease, Hx Anemia, Hx Unexplained Bleeding Cardiovascular History: Reports: Hx Hypercholesterolemia, Hx Hypertension, Hx Peripheral Vascular Disease, Other Cardiovascular Problems/Disorders - HIGH CHOLESTEROL Denies: Hx Aneurysm, Hx Angina, Hx Angioplasty, Hx Auto Implanted Cardiovert Defib, Hx Cardiac Arrest, Hx Cardiomegaly, Hx Congenital Heart Disease, Hx Congestive Heart Failure, Hx Coronary Artery Disease, Hx Deep Vein Thrombosis, Hx Embolism, Hx Hypotension, Hx Pacemaker/ICD, Hx Rheumatic Fever, Hx Syncope, Hx Valvular Heart Disease Respiratory History: Reports: Hx Asthma, Hx Chronic Bronchitis, Hx Chronic Obstructive Pulmonary Disease (COPD), Hx Seasonal Allergies, Hx Sleep Apnea - CAN'T USE CPAP, CAUSES MIGRAINES, Other Respiratory Problems/Disorders - COPD, 1 PPD SMOKER FOR 48 YRS Denies: Hx Cystic Fibrosis, Hx Lung Cancer, Hx Pleural Effusion, Hx Pneumonia , Hx Pulmonary Edema, Hx Pulmonary Embolism GI History: Reports: Hx Gastroesophageal Reflux Disease Denies: Hx Cirrhosis, Hx Crohn's Disease, Hx Diverticulosis, Hx Gall Bladder Disease, Hx Gastrointestinal Bleed, Hx Hiatal Hernia, Hx Irritable Bowel, Hx Jaundice, Hx Obstructive Bowel, Hx Ileostomy, Hx Pyloric Stenosis, Hx Ulcer, Other GI Disorders History: Denies: Hx Acute Renal Failure, Hx Benign Prostatic Hyperplasia, Hx Chronic Renal Failure, Hx Dialysis, Hx Kidney Infection, Hx Kidney Stones, Hx Renal Disease, Other Problems/Disorders Musculoskeletal History: Reports: Hx Arthritis, Hx Fibromyalgia, Other Musculoskeletal History - HX OF RIGHT KNEE PAIN, SURGERY, CHRONIC BACK PAIN Sensory History: Denies: Hx Cataracts, Hx Contacts or Glasses, Hx Eye Injury, Hx Eye Prosthesis, Hx Glaucoma, Hx Legally Blind, Hx Macular Degeneration, Hx Vision Problem, Hx Deafness, Hx Hearing Aid, Hx Hearing Problem Opthamlomology History: Denies: Hx Cataracts, Hx Contacts or Glasses, Hx Eye Injury, Hx Eye Prosthesis, Hx Glaucoma, Hx Legally Blind, Hx Macular Degeneration, Hx Vision Problem Neurological History: Reports: Hx Transient Ischemic Attacks (TIA), Other Neuro Impairments/Disorders - FIBROMYALGIA Denies: Hx Dementia, Hx Developmental Delay, Hx Headaches, Hx Migraine, Hx Nerve Disease, Hx Seizures, Hx Spinal Cord Injury Psychiatric History: Reports: Hx Anxiety - TAKES RX, Hx Depression - Cancer History Cancer Type, Location and Year: right breast Hx Chemotherapy: No Hx Radiation Therapy: No - Surgical History Surgery Procedure, Year, and Place: TONSILLECTOMY 1965 [facility]. RIGHT KNEE MENISCUS [facility]. BACK SURG [facility]. C-SECTIONS 1973 & 1977 [facility]. UMBILICAL HERNIA X 2 [facility] Hx Anesthesia Reactions: Yes - TOOK A LONG TIME TO WAKE UP POST UMBILICAL SURGERY Infectious Disease History: No Infectious Disease History: Denies: Hx Clostridium Difficile, Hx Hepatitis, Hx Human Immunodeficiency Virus (HIV), Hx of Known/Suspected MRSA, Hx Shingles, Hx Tuberculosis, History Other Infectious Disease, Traveled Outside the [place] in Last 30 Days - Family History Known Family History: Positive: Diabetes, Other - Cancer - Social History Alcohol Use: None Substance Use Type: Reports: None Hx Tobacco Use: Yes Smoking Status (MU): Former Smoker Type: Cigarettes Amount Used/How Often: 1 PPD FOR 48 YRS Length of Time of Smoking/Using Tobacco: 48 YRS Have You Smoked in the Last Year: Yes Review of Systems Negative: Fever, Chills Negative: Erythema Negative: Sore Throat, Other - jaw pain Negative: Chest Pain Negative: Shortness Of Breath, Cough Positive: Nausea. Negative: Abdominal Pain, Vomiting, Diarrhea Negative: dysuria, hematuria Negative: Myalgia, Edema Negative: Rash Neurological: Other - NEGATIVE: dizziness. POSITIVE: right hand jerk Positive: Headache All Other Systems Reviewed And Are Negative: Yes Physical Exam - Summary Physical Exam Summary: Constitutional: Well-developed, Well-nourished, Alert. (-) Distressed Skin: Warm, Dry HENT: Normocephalic; Atraumatic Eyes: Conjunctiva normal Neck: Musculoskeletal ROM normal neck. (-) JVD, (-) Stridor, (-) Tracheal deviation Cardio: Rhythm regular, rate normal, Heart sounds normal; Intact distal pulses; The pedal pulses are 2+ and symmetric. Radial pulses are 2+ and symmetric. (-) Murmur Pulmonary/Chest wall: Effort normal. (-) Respiratory distress, (-) Wheezes, (-) Rales Abd: Soft. (-) Tenderness, (-) Distension, (-) Guarding, (-) Rebound Musculoskeletal: (-) Edema Lymph: (-) Cervical adenopathy Neuro: Alert, Oriented x3, Left side hemiplegia. Right side is normal. Psych: Mood and affect Normal Triage Information Reviewed: Yes Vital Signs On Initial Exam: Initial Vitals Temp Pulse Resp BP Pulse Ox 96.9 F 55 18 127/55 95 05/06/19 11:22 05/06/19 11:22 05/06/19 11:22 05/06/19 11:22 05/06/19 11:22 Vital Signs Reviewed: Yes - Kaia Coma Scale Best Eye Response: 4 - Spontaneous Best Motor Response: 6 - Obeys Commands Best Verbal Response: 5 - Oriented Coma Scale Total: 15 Diagnostics - Vital Signs Vital Signs Temp Pulse Resp BP Pulse Ox 05/06/19 11:22 96.9 F 55 18 127/55 95 - Laboratory Result Diagrams: 05/06/19 14:18 05/06/19 14:18 Lab Statement: Any lab studies that have been ordered have been reviewed, and results considered in the medical decision making process. - CT Brain CT CT Interpretation Completed By: Radiologist Summary of CT Findings: IMPRESSION: Evolutionary changes of the previously described right frontal infarct. Otherwise, no acute intracranial pathology. Dr. Coronel has reviewed this report. - EKG 12:34 Cardiac Rate: Bradycardia - at 52 bpm EKG Rhythm: Sinus Bradycardia Summary of EKG Findings: No STEMI. Re-Evaluation - Re-Evaluation First Eval Re-Evaluation Time: 18:57 Comment: Pt feels better. Nausea has resolved. No additional twitching. She tolerated PO in the ED. Course/Dx - Course Assessment/Plan: Pt is a 64 y/o female presenting to [facility] via EMS from [facility] for headache, nausea, right hand jerk today. Pt reports she has been having a frontal headache since about 10:00 today. Denies hx of migraines. Pt notes she has been having nausea as well. She notes today her right hand jerked while in the bathroom and dropped the toilet paper she had in that hand. Denies fever, abd pain, diarrhea, chest pain, jaw pain, SOB, shoulder blade pain, dizziness, lightheadedness. Lab results are unremarkable except for glucose of 190. Brain CT shows evolutionary changes of the previously described right frontal infarct. Otherwise, no acute intracranial pathology. In the ED course the pt was given Benadryl and Zofran. On re-evaluation pt is feeling better and her nausea has resolved. She has not had additional twitching. She tolerated PO in the ED. No new focal neurological deficits. I do not suspect a surgical abdomen. Pt will be discharged home with follow up from her PCP in 2- 3 days. - Diagnoses Provider Diagnoses: Vomiting Discharge - Sign-Out/Discharge Documenting (check all that apply): Patient Departure - Discharge home Patient Received Moderate/Deep Sedation with Procedure: No - Discharge Plan Condition: Stable Disposition: HOME Patient Education Materials: Acute Nausea and Vomiting (ED) Referrals: Ruth Ledezma [Primary Care Provider] - Additional Instructions: Follow up with your primary care provider in 2-3 days. RETURN TO THE EMERGENCY DEPARTMENT FOR CHANGING OR WORSENING SYMPTOMS. - Attestation Statements Document Initiated by Scribe: Yes Documenting Scribe: Hoda Ann Provider For Whom Scribe is Documenting (Include Credential): Zbigniew Coronel MD Scribe Attestation: Hoda Haile, scribed for Zbigniew Coronel MD on 05/06/19 at 1857. Status of Scribe Document: Ready
[2019-05-06] MEDS ORDERED: Ondansetron INJ* 2 MG/ML VIAL IV ONE (13:45)
[2019-05-06] MEDS ORDERED: diPHENhydraMINE IV* 50 MG/ML 1 ml VIAL (BENADRYL) IV ONE (14:06)
[2019-05-06 14:36] LABS: ABS Eosinophils 0.2 10^3/ul (0-0.6); ABS Lymphocytes 1.4 10^3/ul (1.0-4.8); ABS Monocytes 0.4 10^3/ul (0-0.8); ABS Neutrophils 3.7 10^3/ul (1.5-7.7); Eosinophil % 3.5 %; Hematocrit 35 % (35-47); Hemoglobin 11.6 g/dL (12.0-16.0); Lymphocyte % 24.6 %; Mean Corpuscular HGB Conc 33 g/dL (31-36); Mean Corpuscular Hemoglobin 28 pg (27-31); Mean Corpuscular Volume 85 fL (80-97); Mean Platelet Volume 8.8 fL (7.4-10.4); Platelet Count 152 10^3/uL (150-450); Red Blood Count 4.14 10^6 /uL (3.70-4.87); Red Cell Distribution Width 17 % (10-15); White Blood Count 5.8 10^3/uL (3.5-10.8)
[2019-05-06 14:56] LABS: Albumin 3.6 g/dL (3.2-5.2); BUN/Creatinine Ratio 23.1 (8-20); Calcium 9.4 mg/dL (8.6-10.3); EGFR Non-African American 91.8 (>60); Globulin 3.6 g/dL (2-4); Total Bilirubin 0.4 mg/dL (0.2-1.0); Total Protein 7.2 g/dL (6.4-8.9)
[2019-05-06 19:10] VITALS: BP 140/72
== END 2019-05-06 19:17 | disposition home or self-care (01) ==
LOC: ED 11:14
DX: R11.10 Vomiting, unspecified (principal); E11.9 Type 2 diabetes mellitus without complications; E03.9 Hypothyroidism, unspecified; I10 Essential (primary) hypertension; Z87.891 Personal history of nicotine dependence
CPT/HCPCS: 36415; 70450; 80053; 83605; 84484; 85025; 93005; 96374; 96375; 99285; J1200; J2405

== ENCOUNTER → 2019-05-17 04:18 | Emergency (ER) | payer MEDICAID, MEDICARE ==
--- NOTE | 2019-05-17 04:35 | ED ---
Shortness of Breath - HPI Summary HPI Summary: This pt is a 64 y/o female presenting to [facility] via EMS from [facility] for SOB. EMS states staff reported pt was SOB and diaphoretic. Pt reports she is feeling better now. She denies any pain, chest pain, abd pain. PMHx includes diabetes, COPD, CVA (March 2019) with left sided deficit in LUE and LLE. She notes she has been doing well in rehab. - History of Current Complaint Hx Obtained From: Patient Onset/Duration: Lasting Hours Current Severity: Mild Aggravating Factors: Nothing Alleviating Factors: Nothing Associated Signs & Symptoms: Negative Related History: Obesity - Allergy/Home Medications Allergies/Adverse Reactions: Allergies Allergy/AdvReac Type Severity Reaction Status Date / Time cephalexin [From Keflex] Allergy Unknown Verified 03/26/19 00:15 Reaction Details niacin Allergy Hives/Diff. Verified 03/26/19 00:15 [From Niaspan Breathing/I Extended-Release] tching Home Medications: Home Medications Acetaminophen/Diphenhydramine [Tylenol Pm Ex-Strength Caplet] 1 each PO BEDTIME PRN 05/17/19 [History Confirmed 05/17/19] FLUoxetine CAP* [PROzac CAP*] 10 mg PO BEDTIME 05/17/19 [History Confirmed 05/17] Morphine Sulfate 30 mg PO BID PRN 05/17/19 [History Confirmed 05/17/19] Nitrofurantoin Macrocrystals* [Macrodantin 100 mg*] 100 mg PO BID 05/17/19 [ History Confirmed 05/17/19] Nystatin TOP POWDER* 1 applic TOPICAL BID 05/17/19 [History Confirmed 05/17/19] PMH/Surg Hx/FS Hx/Imm Hx Endocrine/Hematology History: Reports: Hx Diabetes - DM II, Hx Thyroid Disease - HYPOTHYROID Denies: Hx Bone Marrow Disease, Hx Sickle Cell Disease, Hx Anemia, Hx Unexplained Bleeding Cardiovascular History: Reports: Hx Hypercholesterolemia, Hx Hypertension, Hx Peripheral Vascular Disease, Other Cardiovascular Problems/Disorders - HIGH CHOLESTEROL Denies: Hx Aneurysm, Hx Angina, Hx Angioplasty, Hx Auto Implanted Cardiovert Defib, Hx Cardiac Arrest, Hx Cardiomegaly, Hx Congenital Heart Disease, Hx Congestive Heart Failure, Hx Coronary Artery Disease, Hx Deep Vein Thrombosis, Hx Embolism, Hx Hypotension, Hx Pacemaker/ICD, Hx Rheumatic Fever, Hx Syncope, Hx Valvular Heart Disease Respiratory History: Reports: Hx Asthma, Hx Chronic Bronchitis, Hx Chronic Obstructive Pulmonary Disease (COPD), Hx Seasonal Allergies, Hx Sleep Apnea - CAN'T USE CPAP, CAUSES MIGRAINES, Other Respiratory Problems/Disorders - COPD, 1 PPD SMOKER FOR 48 YRS Denies: Hx Cystic Fibrosis, Hx Lung Cancer, Hx Pleural Effusion, Hx Pneumonia , Hx Pulmonary Edema, Hx Pulmonary Embolism GI History: Reports: Hx Gastroesophageal Reflux Disease Denies: Hx Cirrhosis, Hx Crohn's Disease, Hx Diverticulosis, Hx Gall Bladder Disease, Hx Gastrointestinal Bleed, Hx Hiatal Hernia, Hx Irritable Bowel, Hx Jaundice, Hx Obstructive Bowel, Hx Ileostomy, Hx Pyloric Stenosis, Hx Ulcer, Other GI Disorders History: Denies: Hx Acute Renal Failure, Hx Benign Prostatic Hyperplasia, Hx Chronic Renal Failure, Hx Dialysis, Hx Kidney Infection, Hx Kidney Stones, Hx Renal Disease, Other Problems/Disorders Musculoskeletal History: Reports: Hx Arthritis, Hx Fibromyalgia, Other Musculoskeletal History - HX OF RIGHT KNEE PAIN, SURGERY, CHRONIC BACK PAIN Sensory History: Denies: Hx Cataracts, Hx Contacts or Glasses, Hx Eye Injury, Hx Eye Prosthesis, Hx Glaucoma, Hx Legally Blind, Hx Macular Degeneration, Hx Vision Problem, Hx Deafness, Hx Hearing Aid, Hx Hearing Problem Opthamlomology History: Denies: Hx Cataracts, Hx Contacts or Glasses, Hx Eye Injury, Hx Eye Prosthesis, Hx Glaucoma, Hx Legally Blind, Hx Macular Degeneration, Hx Vision Problem Neurological History: Reports: Hx Transient Ischemic Attacks (TIA), Other Neuro Impairments/Disorders - FIBROMYALGIA Denies: Hx Dementia, Hx Developmental Delay, Hx Headaches, Hx Migraine, Hx Nerve Disease, Hx Seizures, Hx Spinal Cord Injury Psychiatric History: Reports: Hx Anxiety - TAKES RX, Hx Depression - Cancer History Cancer Type, Location and Year: right breast Hx Chemotherapy: No Hx Radiation Therapy: No - Surgical History Surgery Procedure, Year, and Place: TONSILLECTOMY 1964 [facility]. RIGHT KNEE MENISCUS B[facility]. BACK SURG [facility]. C-SECTIONS 1973 & 1977 [facility]. UMBILICAL HERNIA X 2 [facility] Hx Anesthesia Reactions: Yes - TOOK A LONG TIME TO WAKE UP POST UMBILICAL SURGERY Infectious Disease History: No Infectious Disease History: Denies: Hx Clostridium Difficile, Hx Hepatitis, Hx Human Immunodeficiency Virus (HIV), Hx of Known/Suspected MRSA, Hx Shingles, Hx Tuberculosis, History Other Infectious Disease, Traveled Outside the [place] in Last 30 Days - Family History Known Family History: Positive: Diabetes, Other - Cancer - Social History Alcohol Use: None Substance Use Type: Reports: None Hx Tobacco Use: Yes Smoking Status (MU): Former Smoker Type: Cigarettes Amount Used/How Often: 1 PPD FOR 48 YRS Length of Time of Smoking/Using Tobacco: 48 YRS Have You Smoked in the Last Year: Yes Review of Systems Positive: Skin Diaphoresis. Negative: Fever, Chills Negative: Chest Pain Positive: Shortness Of Breath Negative: Abdominal Pain All Other Systems Reviewed And Are Negative: Yes Physical Exam - Summary Physical Exam Summary: Appearance: Well-appearing, Morbidly obese, lying in bed comfortably Skin: Warm, dry, no obvious rash Eyes: sclera anicteric, no conjunctival pallor ENT: mucous membranes moist, pharynx appears normal Neck: Supple, nontender Respiratory: Clear to auscultation, no signs of respiratory distress Cardiovascular: Bradycardia, Normal S1, S2. No murmurs. Normal distal pulses in tibial and radial bilaterally. Abdomen: abdomen is obese, Soft, nontender, normal active bowel sounds present Musculoskeletal: Normal, Strength/ROM Intact Neurological: A&Ox3, awake and alert, mentation is normal, speech is fluent and appropriate Psychiatric: affect is normal, does not appear anxious or depressed Triage Information Reviewed: Yes Vital Signs On Initial Exam: Initial Vitals Temp Pulse Resp BP Pulse Ox 96.9 F 49 12 120/72 96 05/17/19 04:21 05/17/19 04:21 05/17/19 04:21 05/17/19 04:21 05/17/19 04:21 Vital Signs Reviewed: Yes Diagnostics - Vital Signs Vital Signs Temp Pulse Resp BP Pulse Ox 05/17/19 04:21 96.9 F 49 12 120/72 96 - Laboratory Result Diagrams: 05/17/19 04:30 05/17/19 04:30 Lab Statement: Any lab studies that have been ordered have been reviewed, and results considered in the medical decision making process. - Radiology Chest XR Radiology Interpretation Completed By: ED Physician Summary of Radiographic Findings: No acute process. - EKG 04:50 Cardiac Rate: Bradycardia - at 47 bpm EKG Rhythm: Sinus Bradycardia Summary of EKG Findings: Anterior infarct, old. Course/Dx - Course Assessment/Plan: Pt is a 64 y/o female presenting to [facility] via EMS from [facility] for SOB. EMS states staff reported pt was SOB and diaphoretic. Pt reports she is feeling better now. She denies any pain. Test results is unremarkable except for hemoglobin of 11.6, platelet count of 126. Chest XR shows no acute process. Pt will be discharged back to [facility] with follow up from her PCP. - Diagnoses Provider Diagnoses: Dyspnea Discharge - Sign-Out/Discharge Documenting (check all that apply): Patient Departure - Discharged home Patient Received Moderate/Deep Sedation with Procedure: No - Discharge Plan Condition: Good Disposition: HOME Patient Education Materials: Dyspnea (ED) Referrals: Maricarmen Lennon DO [Primary Care Provider] - - Billing Disposition and Condition Condition: GOOD Disposition: Home - Attestation Statements Document Initiated by Kyleigh: Yes Documenting Scribe: Hoda Ann Provider For Whom Kyleigh is Documenting (Include Credential): Gene Hamm MD Scribe Attestation: Hoda Haile scribed for Gene Hamm MD on 05/17/19 at 0716. Scribe Documentation Reviewed: Yes Provider Attestation: The documentation as recorded by the Hoda newsome accurately reflects the service I personally performed and the decisions made by me, Gene Hamm MD Status of Scribe Document: Viewed
[2019-05-17 05:20] LABS: ABS Eosinophils 0.2 10^3/ul (0-0.6); ABS Lymphocytes 1.5 10^3/ul (1.0-4.8); ABS Monocytes 0.5 10^3/ul (0-0.8); ABS Neutrophils 4.1 10^3/ul (1.5-7.7); Eosinophil % 2.5 %; Hematocrit 35 % (35-47); Hemoglobin 11.6 g/dL (12.0-16.0); Lymphocyte % 23.9 %; Mean Corpuscular HGB Conc 33 g/dL (31-36); Mean Corpuscular Hemoglobin 28 pg (27-31); Mean Corpuscular Volume 85 fL (80-97); Mean Platelet Volume 9.5 fL (7.4-10.4); Platelet Count 126 10^3/uL (150-450); Red Blood Count 4.11 10^6 /uL (3.70-4.87); Red Cell Distribution Width 16 % (10-15); White Blood Count 6.2 10^3/uL (3.5-10.8)
[2019-05-17 05:34] LABS: Albumin 3.6 g/dL (3.2-5.2); Albumin/Globulin Ratio 1.1 (1-3); BUN/Creatinine Ratio 24.7 (8-20); Calcium 9.3 mg/dL (8.6-10.3); EGFR African American 91.3 (>60); EGFR Non-African American 75.5 (>60); Globulin 3.4 g/dL (2-4); Potassium 4.3 mmol/L (3.5-5.0); Total Bilirubin 0.4 mg/dL (0.2-1.0)
[2019-05-17 06:35] VITALS: BP 118/54
--- NOTE | 2019-05-17 10:12 | PN ---
Progress Note - Progress Note Date of Service: 05/17/19 Note: chest xray final read: IMPRESSION: Cardiomegaly with interstitial edema consistent with CHF. patient is already on spironolactone and had no symptoms at discharge so will not change anything.
== END | disposition home or self-care (01) ==
LOC: ED 04:18
DX: R06.00 Dyspnea, unspecified (principal); E11.9 Type 2 diabetes mellitus without complications; I10 Essential (primary) hypertension; Z79.899 Other long term (current) drug therapy; Z87.891 Personal history of nicotine dependence
CPT/HCPCS: 36415; 71046; 80053; 84484; 85025; 93005; 99284

== ENCOUNTER 2019-08-06 14:25 | Emergency (ER) | payer MEDICARE ==
[2019-08-06 14:44] VITALS: BP 144/50
--- NOTE | 2019-08-06 15:08 | UC ---
Hand/Wrist HPI - HPI Summary HPI Summary: 64 yo female presents with injuries s/p fall. She tells me that 4 days ago she was walking in her driveway and lost her footing and fell forward onto her outstretched hands. She mostly landed on her left side as this side is very weak since her stroke in March 2019. Fall was not witnessed. She states she did hit her head, but it was more of a scrap against the ground at her left cheek. No LOC. She did not seek medical attention. Since that time has had pain in her left ribs that is worse with coughing/laughing/deep breaths, left wrist, and left hand. She has severe baseline weakness to her entire left side with decreased ROM. She takes daily morphine and norco for pain and states these have "not touched" her current pain. She is right handed. Denies headache, dizziness, vision changes, new numbness or new weakness. No new SOB or difficulty breathing. - History Of Current Complaint Chief Complaint: UCUpperExtremity Stated Complaint: hand injury FROM A FALL Hx Obtained From: Patient Severity Initially: Moderate Severity Currently: Severe Pain Intensity: 10 Pain Scale Used: 0-10 Numeric - Allergies/Home Medications Allergies/Adverse Reactions: Allergies Allergy/AdvReac Type Severity Reaction Status Date / Time cephalexin [From Keflex] Allergy Unknown Verified 08/06/19 14:44 Reaction Details niacin Allergy Hives/Diff. Verified 08/06/19 14:44 [From Niaspan Breathing/I Extended-Release] tching PMH/Surg Hx/FS Hx/Imm Hx Endocrine History: Hypothyroidism, Dyslipidemia Cardiovascular History: Hypertension Neurological History: CVA Psychological History: Anxiety, Depression - Surgical History Surgical History: Yes Surgery Procedure, Year, and Place: TONSILLECTOMY 1964 [facility]. RIGHT KNEE MENISCUS BERENICE. BACK SURG [facility]. C-SECTIONS 1973 & 1977 [facility]. UMBILICAL HERNIA X 2 [facility] - Family History Known Family History: Positive: Diabetes, Other - Cancer - Social History Lives: With Family Alcohol Use: None Substance Use Type: None Smoking Status (MU): Heavy Every Day Tobacco Smoker Type: Cigarettes Amount Used/How Often: 8-10 cigarettes/day Length of Time of Smoking/Using Tobacco: 48 YRS Have You Smoked in the Last Year: Yes Household Exposure Type: Cigarettes - Immunization History Most Recent Influenza Vaccination: fall 2017 Most Recent Pneumonia Vaccination: never Review of Systems All Other Systems Reviewed And Are Negative: No Constitutional: Positive: Negative Skin: Positive: Negative Respiratory: Positive: Negative Cardiovascular: Positive: Negative Neurovascular: Positive: Negative Musculoskeletal: Positive: Other: - Left wrist, hand, and rib pain Neurological: Positive: Negative Psychological: Positive: Negative Physical Exam - Summary Physical Exam Summary: GENERAL: NAD. WDWN. No pain distress. SKIN: No rashes, sores, or open wounds. HEENT: Head: AT/NC NECK: Supple. Nontender. No lymphadenopathy. CHEST: CTAB. No r/r/w. No accessory muscle use. Breathing comfortably and in no distress. CV: RRR. Without m/r/g. Pulses intact. Brisk cap refill. ABDOMEN: Soft. NTTP. No distention or guarding. No CVA tenderness. Bowel sounds present. No ecchymosis MSK: LEFT HAND/WRIST: Decreased ROM due to pain and baseline weakness. Moderate TTP about entire left hand. Mild TTP at wrist. LEFT RIBS: Mild TTP about 7th- 8th anterior/midaxilalry rib. No deformity noted. NEURO: Alert. PSYCH: Age appropriate behavior. Triage Information Reviewed: Yes Vital Signs: Initial Vital Signs Temp 96.6 F 08/06/19 14:40 Pulse 96 08/06/19 14:40 Resp 18 08/06/19 14:40 BP 144/50 08/06/19 14:40 Pulse Ox 95 08/06/19 14:40 Vital Signs Reviewed: Yes Diagnostics - Radiology Left Ribs Radiology Interpretation Completed By: Radiologist Summary of Radiographic Findings: IMPRESSION: Suggestion of fracture of the left eighth rib anteriorly. No pneumothorax is noted. No other fractures are definitively identified. Left wrist Radiology Interpretation Completed By: Radiologist Summary of Radiographic Findings: IMPRESSION: NO FRACTURE OF THE WRIST IS NOTED. Left hand Radiology Interpretation Completed By: Radiologist Summary of Radiographic Findings: IMPRESSION: Limited exam without definite evidence of fracture. Degenerative changes of the distal interphalangeal joints of the second through fifth digit as well as the first carpal metacarpal joint. Hand/Wrist Course/Dx - Course Course Of Treatment: Discussed XR results with pt. Will have her use a cock up splint for her wrist and rest, ice, and elevate. She was provided with an incentive spirometer to use to practice good breathing habits while recovering from her rib fracture. Advised to continue pain medication as already prescribed. F/u with PCP within 1 week for a recheck of her symptoms - Differential Dx/Diagnosis Provider Diagnosis: Fall, Closed traumatic nondisplaced fracture of rib, Left wrist sprain Discharge ED - Sign-Out/Discharge Documenting (check all that apply): Patient Departure All imaging exams completed and their final reports reviewed: Yes - Discharge Plan Condition: Stable Disposition: HOME Patient Education Materials: Rib Fracture (ED) Referrals: No Primary Care Phys,NOPCP [Primary Care Provider] - [facility] [Outside] Additional Instructions: If you develop a fever, shortness of breath, chest pain, new or worsening symptoms - please call your PCP or go to the ED immediately. I recommend that you schedule an appointment within 1 week with your primary doctor for a recheck of your symptoms Use the incentive spirometer to practice expanding your lungs and slow good breaths Rest, Ice, and elevate your wrist/hand and use the wrist brace to decrease pain and swelling - Billing Disposition and Condition Condition: STABLE Disposition: Home
== END 2019-08-06 16:28 | disposition home or self-care (01) ==
LOC: UCEAST 14:25
DX: S22.32XA Fracture of one rib, left side, initial encounter for closed fracture (principal); S63.502A Unspecified sprain of left wrist, initial encounter; W18.30XA Fall on same level, unspecified, initial encounter; Y92.014 Private driveway to single-family (private) house as the place of occurrence of the external cause; E03.9 Hypothyroidism, unspecified; E78.5 Hyperlipidemia, unspecified; I10 Essential (primary) hypertension; F41.9 Anxiety disorder, unspecified; F32.9 Major depressive disorder, single episode, unspecified; F17.210 Nicotine dependence, cigarettes, uncomplicated; Z86.73 Personal history of transient ischemic attack (TIA), and cerebral infarction without residual deficits
CPT/HCPCS: 99213; G0463

== ENCOUNTER 2019-10-12 20:34 | Emergency (ER) | payer MEDICARE ==
[2019-10-12] MEDS ORDERED: NS 0.9% 1000 ML** 1,000 ML IV ONE (20:36)
--- NOTE | 2019-10-12 20:39 | ED ---
Neurological HPI - HPI Summary HPI Summary: Pt was seen upon arrivals at 20:33 Code Rojas Called at 20:34 This patient is a 64 year old F presenting to [facility] by EMS with a chief complaint of left sided weakness since prior to arrival. The patients family called EMS, when her eyes rolled back, and she had an unsteady gait. Pt has previously has a stroke on March 25, 2019. Pt has left sided weakness at baseline. EMS reports that when they arrived she was almost unresponsive but throughout the ride patient became more alert and oriented. Pt reports she started shaking, jerking in legs (the same symptom occurred during the last stroke) and felt numbness in mouth, hand, and arm. Pt could walk all day, and cannot walk currently. Pts left arm is paralyzed since last stroke, however her left leg became paralyzed today. Pt takes 81 mg aspirin. Pt had surgery in Mar, 2019. 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 - History of Current Complaint Chief Complaint: EDNeurologicalDeficit Stated Complaint: POSS STROKE PER EMS Time Seen by Provider: 10/12/19 20:34 Last Known Well Date: 19:15 Hx Obtained From: Patient, EMS Onset/Duration: Sudden Onset, Started minutes ago, Still Present Timing: Constant Current Severity: Moderate Neurological Deficit Location: Facial Character: Numbness/Tingling, Motor Weakness, Sensory Loss Aggravating: Nothing Alleviating: Nothing Associated Signs and Symptoms: Positive: Headache, Agitation, Numbness - Additional Pertinent History Primary Care Physician: [id number] - Allergy/Home Medications Allergies/Adverse Reactions: Allergies Allergy/AdvReac Type Severity Reaction Status Date / Time cephalexin [From Keflex] Allergy Unknown Verified 10/13/19 00:31 Reaction Details niacin Allergy Hives/Diff. Verified 10/13/19 00:31 [From Niaspan Breathing/I Extended-Release] tching Home Medications: Home Medications Sitagliptin Phos/Metformin HCl [Janumet 50-1000 mg] 1 tab PO BID 10/12/19 [ History Confirmed 10/12/19] PMH/Surg Hx/FS Hx/Imm Hx Endocrine/Hematology History: Reports: Hx Diabetes - DM II, Hx Thyroid Disease - HYPOTHYROID Denies: Hx Bone Marrow Disease, Hx Sickle Cell Disease, Hx Anemia, Hx Unexplained Bleeding Cardiovascular History: Reports: Hx Hypercholesterolemia, Hx Hypertension, Hx Peripheral Vascular Disease, Other Cardiovascular Problems/Disorders - HIGH CHOLESTEROL Denies: Hx Aneurysm, Hx Angina, Hx Angioplasty, Hx Auto Implanted Cardiovert Defib, Hx Cardiac Arrest, Hx Cardiomegaly, Hx Congenital Heart Disease, Hx Congestive Heart Failure, Hx Coronary Artery Disease, Hx Deep Vein Thrombosis, Hx Embolism, Hx Hypotension, Hx Pacemaker/ICD, Hx Rheumatic Fever, Hx Syncope, Hx Valvular Heart Disease Respiratory History: Reports: Hx Asthma, Hx Chronic Bronchitis, Hx Chronic Obstructive Pulmonary Disease (COPD), Hx Seasonal Allergies, Hx Sleep Apnea - CAN'T USE CPAP, CAUSES MIGRAINES, Other Respiratory Problems/Disorders - COPD, 1 PPD SMOKER FOR 48 YRS Denies: Hx Cystic Fibrosis, Hx Lung Cancer, Hx Pleural Effusion, Hx Pneumonia , Hx Pulmonary Edema, Hx Pulmonary Embolism GI History: Reports: Hx Gastroesophageal Reflux Disease Denies: Hx Cirrhosis, Hx Crohn's Disease, Hx Diverticulosis, Hx Gall Bladder Disease, Hx Gastrointestinal Bleed, Hx Hiatal Hernia, Hx Irritable Bowel, Hx Jaundice, Hx Obstructive Bowel, Hx Ileostomy, Hx Pyloric Stenosis, Hx Ulcer, Other GI Disorders History: Denies: Hx Acute Renal Failure, Hx Benign Prostatic Hyperplasia, Hx Chronic Renal Failure, Hx Dialysis, Hx Kidney Infection, Hx Kidney Stones, Hx Renal Disease, Other Problems/Disorders Musculoskeletal History: Reports: Hx Arthritis, Hx Fibromyalgia, Other Musculoskeletal History - HX OF RIGHT KNEE PAIN, SURGERY, CHRONIC BACK PAIN Sensory History: Denies: Hx Cataracts, Hx Contacts or Glasses, Hx Eye Injury, Hx Eye Prosthesis, Hx Glaucoma, Hx Legally Blind, Hx Macular Degeneration, Hx Vision Problem, Hx Deafness, Hx Hearing Aid, Hx Hearing Problem Opthamlomology History: Denies: Hx Cataracts, Hx Contacts or Glasses, Hx Eye Injury, Hx Eye Prosthesis, Hx Glaucoma, Hx Legally Blind, Hx Macular Degeneration, Hx Vision Problem Neurological History: Reports: Hx Transient Ischemic Attacks (TIA), Other Neuro Impairments/Disorders - FIBROMYALGIA Denies: Hx Dementia, Hx Developmental Delay, Hx Headaches, Hx Migraine, Hx Nerve Disease, Hx Seizures, Hx Spinal Cord Injury Psychiatric History: Reports: Hx Anxiety - TAKES RX, Hx Depression - Cancer History Cancer Type, Location and Year: right breast Hx Chemotherapy: Yes Hx Radiation Therapy: Yes - Surgical History Surgery Procedure, Year, and Place: TONSILLECTOMY 1964 [facility]. RIGHT KNEE MENISCUS [facility]. BACK SURG [facility]. C-SECTIONS 1973 & 1977 [facility]. UMBILICAL HERNIA X 2 [facility] Hx Anesthesia Reactions: Yes - TOOK A LONG TIME TO WAKE UP POST UMBILICAL SURGERY Infectious Disease History: Denies: Hx Clostridium Difficile, Hx Hepatitis, Hx Human Immunodeficiency Virus (HIV), Hx of Known/Suspected MRSA, Hx Shingles, Hx Tuberculosis, History Other Infectious Disease - Family History Known Family History: Positive: Diabetes, Other - Cancer - Social History Alcohol Use: None Substance Use Type: Reports: None Hx Tobacco Use: Yes Smoking Status (MU): Heavy Every Day Tobacco Smoker Type: Cigarettes Amount Used/How Often: 8-10 cigarettes/day Length of Time of Smoking/Using Tobacco: 48 YRS Have You Smoked in the Last Year: Yes - Additional Comments History Additional Comments: Home Medications Medication Instructions Recorded Confirmed Type Pantoprazole TAB * [Protonix TAB*] 40 mg PO BID 03/01/17 07/29/19 History Ondansetron HCl [Zofran 4 MG TAB] 4 mg PO Q4HR PRN 06/25/18 07/29/19 History Levothyroxine TAB* [Synthroid TAB*] 250 mcg PO DAILY 07/09/18 07/29/19 History Aspirin EC TAB* [Ecotrin EC Low 81 mg PO DAILY 04/10/19 07/29/19 History Dose 81 MG*] Atorvastatin* [Lipitor 80 MG*] 80 mg PO QPM 04/10/19 07/29/19 History Carvedilol TAB* [Coreg TAB*] 6.25 mg PO BID 04/10/19 07/29/19 History Fenofibrate(NF) 160 mg PO DAILY 04/10/19 07/29/19 History Losartan TAB* [Cozaar TAB*] 100 mg PO DAILY 04/10/19 07/29/19 History Pregabalin CAP(*) [Lyrica CAP(*)] 150 mg PO BID 04/10/19 07/29/19 History Ropinirole TAB* [Requip TAB*] 0.5 mg PO BEDTIME 04/10/19 07/29/19 History Spironolactone TAB* [Aldactone TAB 50 mg PO DAILY 04/10/19 07/29/19 History 25 MG*] amLODIPine TAB* [Norvasc 5 mg TAB*] 10 mg PO DAILY 04/10/19 07/29/19 History Acetaminophen TAB* [Tylenol TAB*] 650 mg PO Q4H PRN tab 04/16/19 07/29/19 Rx Acetaminophen/Diphenhydramine 1 each PO BEDTIME PRN 05/17/19 07/29/19 History [Tylenol Pm Ex-Strength Caplet] Nystatin TOP POWDER* 1 applic TOPICAL BID 05/17/19 07/29/19 History DULoxetine CAP* [Cymbalta CAP*] 30 mg PO DAILY 06/26/19 07/29/19 History Hydrocodone/Acetaminophen [[place] 1 each PO TID PRN MDD 3 06/26/19 07/29/19 History 7.5-325 Tablet] Morphine Sulfate [Morphine Sulfate 30 mg PO BID 07/29/19 07/29/19 History ER] Review of Systems Musculoskeletal: Other - unable to move left leg Neurological: Other - full body shaking, jerking legs, unsteady gait Positive: Headache, Weakness, Numbness, Syncope All Other Systems Reviewed And Are Negative: Yes Physical Exam - Summary Physical Exam Summary: General: Obese female. No obvious distress. HEENT: Normocephalic, Atraumatic. Eyes: Conjuctiva normal, PERRL. Ears: TMs within normal limits. Nares: (-) discharge, (-) erythema. Oropharynx: Clear, mucous membranes moist, (-) exudates. Neck: Soft, FROM, (-) lymphadenopathy, (-) thyromegaly, (-) JVD. Cardiovascular: Normal sinus rhythm, (-) murmur. Lungs: Clear to auscultation bilaterally (-) wheezes, (-) rales, (-) rhonchi. Abdomen: Soft, non-tender, non-distended, (-) organomegaly, normal bowel sounds. Back: (-) CVA tenderness Extremities: No edema. Rhythmic movement of bilateral lower legs, left worse than right. Skin: Warm, dry, (-) rash. Neuro: Alert and oriented x3, Left facial droop, Minor Facial paresis, Right leg - drifts LT 10 secs, left leg - no movement, sensory - severe to total loss. Psychiatric: mildly agitated upon arrival. Triage Information Reviewed: Yes Vital Signs On Initial Exam: Initial Vital Signs Temp 98.9 F 10/12/19 20:53 Pulse 135 10/12/19 20:53 Resp 20 10/12/19 20:53 BP 178/116 10/12/19 20:53 Pulse Ox 90 10/12/19 20:53 Vital Signs Reviewed: Yes - Kaia Coma Scale Best Eye Response: 4 - Spontaneous Best Motor Response: 6 - Obeys Commands Best Verbal Response: 5 - Oriented Coma Scale Total: 15 Procedures - Sedation Patient Received Moderate/Deep Sedation with Procedure: No Diagnostics - Laboratory Result Diagrams: 10/12/19 21:14 10/12/19 21:14 Lab Statement: Any lab studies that have been ordered have been reviewed, and results considered in the medical decision making process. - Radiology CXR Radiology Interpretation Completed By: ED Physician Summary of Radiographic Findings: CXR reveals, per ED physician, increased interspatial markings predominantly on the right. No obvious infiltrate. - CT Brain CT CT Interpretation Completed By: Radiologist Summary of CT Findings: Brain CT reveals, per radiologist IMPRESSION: Patient motion without definite acute intracranial abnormality. ED physician has reviewed this radiology report. Head CTA CT Interpretation Completed By: Radiologist Summary of CT Findings: Head CTA reveals, per radiologist IMPRESSION: 1. Suspect focal short segment dissection involving the proximal right ICA. 2. 80% stenosis at the distal right common carotid artery. 3. 30% stenosis involving the left common carotid artery. 4. 20% stenosis involving the proximal right ICA. IMPRESSION: No hemodynamically significant stenosis or large vessel occlusion. ED physician has reviewed this radiology report. - EKG 21:40 Cardiac Rate: NL EKG Rhythm: Sinus Rhythm Summary of EKG Findings: EKG at 21:40 reveals normal sinus rhythm with rate of 91 BPM, no acute changes, no ischemic changes. This EKG was reviewed and interpreted by Dr. Person. NIH Scale - NIH Scale Level of Consciousness: Alert/Keenly Responsive Ask Patient the Month and His/Her Age: Both Correct Ask Pt to Open/Close Eyes and [employer]/Release Non-Paretic Hand: Both Correctly Best Gaze (Only Horizontal Eye Movement): Normal Visual Field Testing: No Visual Loss Facial Paresis-Pt to Smile & Close Eyes or Grimace Symmetry: Minor Paralysis Motor Function - Right Arm: No Drift-Holds 10 Seconds Motor Function - Left Arm: No Drift-Holds 10 Seconds Motor Function - Right Leg: Drifts LT 10 seconds Motor Function - Left Leg: No Movement Limb Ataxia-Must be out of Proportion to Weakness Present: Absent Sensory (Use Pinprick to Test Arms/Legs/Trunk/Face): Severe to Total Loss Best Language (Describe Picture, Name Items): No Aphasia Dysarthria (Read Several Words): Normal Extinction and Inattention: No Abnormality Total Score: 8 Re-Evaluation - Re-Evaluation First Eval Re-Evaluation Time: 00:28 Comment: Discussed plan to transfer to [facility] with pt. Course/Dx - Course Course Of Treatment: 64 year old female presents by ambulance from home after an episode, pt was with family at 19:15 when she suddenly was notice to have eyes rolling back in to her head and she became unresponsive to family. Pt has notable history for high grade stenosis in right carotid for which she was transferred to [facility] in Mar, 2019 and had carotid endarterectomy done, complicated by stroke. Pt sustains residual severe left arm weakness and mild facial droop. During ED course pt received, fluids, and Ativan. Workup demonstrated elevated lactic and glucose levels. Initial CT head negative but inadequate secondary to motion artifact. Telenuero consult obtained due to patients apparent focal seizure of the left leg and hx of possible hemorrhagic stroke in March. TPA was deferred. Keppra given and EEG recommended. CTAs were completed demonstrated a possible small segment dissection involving proximal right ICA, consistent with left sided stroke symptoms. Discussed with vascular surgeon at [facility] where pt had previous carotid endarterectomy. Pt accepted for admission, and pt was advised to be sent to the ED. Report given to Dr. Pollack. Pt transferred by ambulance full ALS protocol. - Diagnoses Provider Diagnoses: Dissection of carotid artery, Stroke-like symptoms During the Visit The Following Alert/Code Occurred: Code Xie - Physician Notifications Discussed Care Of Patient With: Alexander Cleary Time Discussed With Above Provider: 21:10 Instructed by Provider To: Other - 21:08 [facility] will call back, because they lost the call with Dr. Cleary. 21:[address] Cleary, who will do a telestroke consult. 1 hour for TPA 22:10 Dr. Cleary discussed findings from exam, recommends loaded with 1500 keppra, admit pt, 750 keppra BID tomorrow, EEG in the morning, proceed with CTA of head and neck, deferred TPA due to mostly likely dx of seizure and history of brain bleed in march 22:[address] Kirkland, who wants pt to be transferred. 22: [address] Saldana call with Dr. Ruiz 23:[address] Kirkland, who recommends transfer to vascular surgeon in [place] 00:[address] Medina at [facility], who accepts pt 00:[address] Pollack who accepts ED to ED transfer. Reason For Transfer: Specialty [place] available [place] [facility] [place] - Critical Care Time Critical Care Time: 75-104 min - 121 minutes Discharge ED - Sign-Out/Discharge Documenting (check all that apply): Patient Departure - Transfer - Discharge Plan Condition: Stable Disposition: TRANS HIGHER LVL OF CARE FAC Referrals: No Primary Care Phys,NOPCP [Primary Care Provider] - - Billing Disposition and Condition Condition: STABLE Disposition: Trans Higher Lvl of Care Fac - Attestation Statements Document Initiated by Scribe: Yes Documenting Scribe: Fara Church Provider For Whom Scribe is Documenting (Include Credential): Dr. Janel Person MD Scribe Attestation: Fara Haile scribed for Dr. Janel Person MD on 10/13/19 at 0117. Scribe Documentation Reviewed: Yes Provider Attestation: The documentation as recorded by the Fara newsome accurately reflects the service I personally performed and the decisions made by me, Dr. Janel Person MD Status of Scribe Document: Viewed
[2019-10-12] MEDS ORDERED: LORazepam INJ* 2 MG/ML 1 ML VIAL IV PUSH ONE ×2 (20:58→21:12)
[2019-10-12] MEDS ORDERED: Lorazepam PYXIS KEY PRN ×2 (20:58→21:12)
[2019-10-12] MEDS ORDERED: Lorazepam PYXIS KEY ONE (21:00)
[2019-10-12 21:24] LABS: ABS Eosinophils 0.1 10^3/ul (0-0.6); ABS Lymphocytes 1.3 10^3/ul (1.0-4.8); ABS Monocytes 0.3 10^3/ul (0-0.8); ABS Neutrophils 5.1 10^3/ul (1.5-7.7); Eosinophil % 1.5 %; Hematocrit 39 % (35-47); Hemoglobin 12.9 g/dL (12.0-16.0); Lymphocyte % 19.6 %; Mean Corpuscular HGB Conc 33 g/dL (31-36); Mean Corpuscular Hemoglobin 27 pg (27-31); Mean Corpuscular Volume 84 fL (80-97); Mean Platelet Volume 8.6 fL (7.4-10.4); Platelet Count 190 10^3/uL (150-450); Red Cell Distribution Width 17 % (10-15); White Blood Count 6.8 10^3/uL (3.5-10.8)
[2019-10-12 21:32] LABS: Activated Partial Thrombo Time 43.8 seconds (26.0-38.0); INR 1.13 (0.82-1.09)
[2019-10-12 21:44] LABS: Albumin 4.3 g/dL (3.2-5.2); Anion Gap 13 mmol/L (2-11); CO2 Carbon Dioxide 24 mmol/L (22-32); Calcium 8.2 mg/dL (8.6-10.3); Chloride 101 mmol/L (101-111); Potassium 3.6 mmol/L (3.5-5.0); Sodium 138 mmol/L (135-145)
[2019-10-12 21:50] LABS: ALT 13 U/L (7-52); AST 24 U/L (13-39); Albumin/Globulin Ratio 1.2 (1-3); Alkaline Phosphatase 89 U/L (34-104); Blood Urea Nitrogen 16 mg/dL (6-24); Cholesterol 172 mg/dL; EGFR African American 87.4 (>60); EGFR Non-African American 72.2 (>60); Globulin 3.5 g/dL (2-4); Glucose 179 mg/dL (70-100); HDL Cholesterol 25.7 mg/dL; LDL Cholesterol 89 mg/dL; Total Protein 7.8 g/dL (6.4-8.9); Triglycerides 286 mg/dL
[2019-10-12 22:18] LABS: Troponin I 0.03 ng/mL (<0.03)
[2019-10-12 22:50] LABS: Urine Appearance Clear; Urine Bilirubin Negative (Negative); Urine Blood Negative (Negative); Urine Color Yellow; Urine Glucose 1+(50 mg/dL) (Negative); Urine Ketones Negative (Negative); Urine Nitrite Negative (Negative); Urine Protein 1+(30 mg/dL) (Negative); Urine Specific Gravity 1.015 (1.010-1.030); Urine Urobilinogen Negative (Negative)
[2019-10-12] MEDS ORDERED: Iodixanol* (CONTRAST) 320 MG/ML 100 ML SDV IV ONE (22:51)
[2019-10-12 22:52] LABS: Urine Bacteria Absent (Absent); Urine Red Blood Cell 1+(3-5/hpf) (Absent); Urine Squamous Epithelial Cell Present (Absent); Urine White Blood Cell Trace(0-5/hpf) (Absent)
[2019-10-12] MEDS ORDERED: levETIRAcetam 1000MG IVPREMIX* 1,000 MG/100 ML BAG IV SCH (23:00)
[2019-10-13 02:19] VITALS: BP 102/59
== END 2019-10-13 02:19 | disposition short-term general hospital (02) ==
LOC: ED 20:34
DX: I77.71 Dissection of carotid artery (principal); Z86.73 Personal history of transient ischemic attack (TIA), and cerebral infarction without residual deficits; R53.1 Weakness; R51 Headache; F17.210 Nicotine dependence, cigarettes, uncomplicated; E11.9 Type 2 diabetes mellitus without complications; E03.9 Hypothyroidism, unspecified; E78.00 Pure hypercholesterolemia, unspecified; Z79.899 Other long term (current) drug therapy; I10 Essential (primary) hypertension; I73.9 Peripheral vascular disease, unspecified; K21.9 Gastro-esophageal reflux disease without esophagitis; J44.9 Chronic obstructive pulmonary disease, unspecified
CPT/HCPCS: 36415; 70450; 70496; 70498; 71045; 80053; 80061; 81003; 81015; 83605; 84484; 85025; 85610; 85730; 87086; 93005; 96361; 96365; 96375; 99285; J1953; J2060; Q9967

== ENCOUNTER 2020-10-06 01:39 | Inpatient (IN) ==
[2020-10-06 03:27] LABS: ABS Eosinophils 0.2 10^3/ul (0-0.6); ABS Lymphocytes 1.1 10^3/ul (1.0-4.8); ABS Monocytes 0.4 10^3/ul (0-0.8); Eosinophil % 2.2 %; Hematocrit 35 % (35-47); Hemoglobin 11.6 g/dL (12.0-16.0); Lymphocyte % 14.1 %; Mean Corpuscular HGB Conc 33 g/dL (31-36); Mean Corpuscular Hemoglobin 26 pg (27-31); Mean Corpuscular Volume 78 fL (80-97); Mean Platelet Volume 8.4 fL (7.4-10.4); Platelet Count 195 10^3/uL (150-450); Red Blood Count 4.55 10^6 /uL (3.70-4.87); Red Cell Distribution Width 16 % (10-15); White Blood Count 7.6 10^3/uL (3.5-10.8)
[2020-10-06 03:37] LABS: INR 1.14 (0.82-1.09)
[2020-10-06 03:44] LABS: Albumin 3.8 g/dL (3.2-5.2); Albumin/Globulin Ratio 1.2 (1-3); BUN/Creatinine Ratio 21.9 (8-20); Calcium 9.1 mg/dL (8.6-10.3); EGFR African American 57.9 (>60); EGFR Non-African American 47.8 (>60); Globulin 3.3 g/dL (2-4); Potassium 4.4 mmol/L (3.5-5.0); Total Bilirubin 0.3 mg/dL (0.2-1.0); Total Protein 7.1 g/dL (6.4-8.9)
[2020-10-06 03:46] LABS: Troponin I 0.01 ng/mL (<0.03)
[2020-10-06 03:57] LABS: Urine Appearance Turbid; Urine Bilirubin Negative (Negative); Urine Blood 1+ (Negative); Urine Color Amber; Urine Glucose Negative (Negative); Urine Ketones Negative (Negative); Urine Nitrite Negative (Negative); Urine Protein 1+(30 mg/dL) (Negative); Urine Urobilinogen Negative (Negative)
[2020-10-06 04:12] LABS: Urine Bacteria 2+ (Absent); Urine Red Blood Cell Trace(0-2/hpf) (Absent); Urine Squamous Epithelial Cell Present (Absent); Urine White Blood Cell 2+(11-20/hpf) (Absent)
[2020-10-06 04:23] LABS: TSH Ultra Thyroid Stim Horm 1.32 mcIU/mL (0.34-5.60)
[2020-10-06] MEDS ORDERED: Sulfamethox/Trimethoprim DS TAB 800/160 mg PO ONE (04:25)
[2020-10-06 05:55] LABS: Troponin I 0.04 ng/mL (<0.03)
[2020-10-06] MEDS ORDERED: Iodixanol (CONTRAST) 320 MG/ML 100 ML SDV IV ONE ×2 (06:21→14:31)
[2020-10-06] MEDS ORDERED: NS 0.9% 1000 ml BAG 1,000 ML IV SCH (10:00)
[2020-10-06] MEDS ORDERED: Enoxaparin 40 MG/0.4 ML SYR SUBCUT SCH ×2 (10:00→15:00)
[2020-10-06 10:46] LABS: Troponin I 0.07 ng/mL (<0.03)
[2020-10-06] MEDS: HYDROcodone/ACET. 7.5/325 LIQ 15 ML UDC PO SCH ×2 (13:02→20:08)
[2020-10-06] MEDS: DULoxetine DR 20 mg CAP PO SCH (13:03)
[2020-10-06] MEDS: Nystatin TOP POWDER 15 GM BTL TOPICAL SCH ×2 (13:04→20:11)
[2020-10-06] MEDS: fentaNYL PATCH 25 MCG/HR 1 PATCH TRANSDERM SCH (13:36)
[2020-10-06] MEDS: Enoxaparin 40 MG/0.4 ML SYR SUBCUT SCH (14:38)
[2020-10-06 16:01] LABS: Troponin I 0.07 ng/mL (<0.03)
[2020-10-06] MEDS ORDERED: Dextrose 50% Syringe 50 ml 25 GM/50 ML SYRINGE IV PUSH PRN (16:48)
[2020-10-06 19:05] LABS: Troponin I 0.06 ng/mL (<0.03)
[2020-10-06] MEDS: fentaNYL Patch Check Q Shift NOTE FOLLOW UP SCH (19:07)
[2020-10-07] MEDS: fentaNYL Patch Check Q Shift NOTE FOLLOW UP SCH ×2 (07:37→18:39)
[2020-10-07] MEDS: DULoxetine DR 20 mg CAP PO SCH (08:18)
[2020-10-07] MEDS: Nystatin TOP POWDER 15 GM BTL TOPICAL SCH ×3 (08:21→21:05)
[2020-10-07] MEDS: HYDROcodone/ACET. 7.5/325 LIQ 15 ML UDC PO SCH ×3 (08:39→19:58)
[2020-10-07 08:51] LABS: ABS Eosinophils 0.2 10^3/ul (0-0.6); ABS Lymphocytes 1.3 10^3/ul (1.0-4.8); ABS Monocytes 0.4 10^3/ul (0-0.8); ABS Neutrophils 3.5 10^3/ul (1.5-7.7); Eosinophil % 2.9 %; Hematocrit 34 % (35-47); Hemoglobin 11.1 g/dL (12.0-16.0); Lymphocyte % 24.1 %; Mean Corpuscular HGB Conc 33 g/dL (31-36); Mean Corpuscular Hemoglobin 26 pg (27-31); Mean Corpuscular Volume 79 fL (80-97); Mean Platelet Volume 8.5 fL (7.4-10.4); Nucleated Red Blood Cells % 0.1; Platelet Count 183 10^3/uL (150-450); Red Blood Count 4.34 10^6 /uL (3.70-4.87); Red Cell Distribution Width 17 % (10-15); White Blood Count 5.3 10^3/uL (3.5-10.8)
[2020-10-07 09:09] LABS: BUN/Creatinine Ratio 23.1 (8-20); Calcium 9.2 mg/dL (8.6-10.3); EGFR African American 75.1 (>60); HDL Cholesterol 23.9 mg/dL
[2020-10-07] MEDS ORDERED: Perflutren Lipid Microsphere 3 ML VIAL ONE (10:11)
[2020-10-07] MEDS: Enoxaparin 40 MG/0.4 ML SYR SUBCUT SCH (13:52)
[2020-10-08] MEDS: fentaNYL Patch Check Q Shift NOTE FOLLOW UP SCH ×2 (06:35→19:25)
[2020-10-08] MEDS ORDERED: Sitaglip/Metform 50/1000(NR) TAB PO SCH (09:00)
[2020-10-08] MEDS ORDERED: SITAGLIPTIN 50 MG PO SCH (09:00)
[2020-10-08] MEDS: HYDROcodone/ACET. 7.5/325 LIQ 15 ML UDC PO SCH ×3 (09:39→20:45)
[2020-10-08] MEDS: DULoxetine DR 20 mg CAP PO SCH (09:40)
[2020-10-08] MEDS: CMCS - SitaGLIPtin 25mg TAB (NF) 25 MG TAB PO SCH ×2 (09:42→20:45)
[2020-10-08] MEDS: Nystatin TOP POWDER 15 GM BTL TOPICAL SCH ×3 (09:43→20:48)
[2020-10-08] MEDS: Enoxaparin 40 MG/0.4 ML SYR SUBCUT SCH (14:58)
[2020-10-08] MEDS ORDERED: Gadoteridol (CONTRAST) 279.3 MG/ML 10 ML IV ONE (19:31)
[2020-10-09] MEDS: fentaNYL Patch Check Q Shift NOTE FOLLOW UP SCH ×2 (07:09→13:01)
[2020-10-09] MEDS: HYDROcodone/ACET. 7.5/325 LIQ 15 ML UDC PO SCH (08:06)
[2020-10-09] MEDS: CMCS - SitaGLIPtin 25mg TAB (NF) 25 MG TAB PO SCH (08:07)
[2020-10-09] MEDS: DULoxetine DR 20 mg CAP PO SCH (08:08)
[2020-10-09] MEDS: Nystatin TOP POWDER 15 GM BTL TOPICAL SCH (08:09)
[2020-10-09 12:23] VITALS: BP 116/46
[2020-10-09] MEDS: fentaNYL PATCH 25 MCG/HR 1 PATCH TRANSDERM SCH (13:02)
== END 2020-10-09 13:20 | disposition home health service (06) | DRG 189 ==
LOC: ED 01:39 → MED 01:39 → OBSVTOIN 09:49 → MED 11:25 → MEDTELE 10-07 05:45
PROVIDERS: ADMIT Internal Medicine; ATTEND Internal Medicine

== ENCOUNTER 2023-07-16 15:31 | Inpatient (IN) ==
[2023-07-16] MEDS ORDERED: Acetaminophen IV 1 GM/100ML 1,000 MG/100 ML BAG IV ONE (15:58)
[2023-07-16 16:35] LABS: ABS Basophils 0.1 10^3/uL (0.0-0.1); ABS Lymphocytes 0.6 10^3/uL (1.0-4.8); ABS Monocytes 0.5 10^3/uL (0.0-0.9); ABS Neutrophils 9.3 10^3/uL (1.5-7.6); ABS Nucleated RBC 0.01 10^3/ul; Eosinophil % 0.1 %; Hematocrit 36.4 % (35-45); Hemoglobin 12.5 g/dL (11.5-14.3); Mean Corpuscular Hemoglobin 26.9 pg (27-33); Mean Corpuscular Hgb Conc 34.2 g/dL (31-36); Mean Corpuscular Volume 78.7 fL (80-97); Mean Platelet Volume 7.7 fL (7.5-11.2); Platelet Count 224 10^3/uL (150-450); Red Blood Count 4.63 10^6/uL (3.63-4.92); Red Cell Distribution Width 17.5 % (12-17); White Blood Count 10.6 10^3/uL (3.8-11.8)
[2023-07-16 16:49] LABS: INR 1.21 (0.83-1.13)
[2023-07-16 16:53] LABS: ALT 19 U/L (7-52); AST 51 U/L (13-39); Albumin 3.4 g/dL (3.2-5.2); Alkaline Phosphatase 89 U/L (35-149); Anion Gap 10 mmol/L (2-16); Blood Urea Nitrogen 12 mg/dL (6-24); C Reactive Protein 144.02 mg/L (<8.01); CO2 Carbon Dioxide 25 mmol/L (22-32); Calcium 7.8 mg/dL (8.6-10.3); Chloride 99 mmol/L (101-111); Creatine Kinase 1581 U/L (10-223); Creatinine, Serum 0.89 mg/dL (0.51-0.95); Globulin 3.3 g/dL (2-4); Glucose 100 mg/dL (70-100); Sodium 134 mmol/L (135-145); Total Protein 6.7 g/dL (6.4-8.9); eGFR CKD-EPI 70.6 (>60)
[2023-07-16] MEDS ORDERED: Nystatin TOP POWDER 15 GM BTL TOPICAL ONE (16:54)
[2023-07-16 16:58] LABS: High Sens Troponin Baseline 28 pg/mL (<15)
[2023-07-16] MEDS ORDERED: Iodixanol (CONTRAST) 320 MG/ML 100 ML SDV IV ONE (17:07)
[2023-07-16] MEDS ORDERED: Ondansetron 4 mg VIAL 2 MG/ML 2 ml VIAL IV ONE (17:32)
[2023-07-16 17:47] LABS: Urine Appearance Clear; Urine Bilirubin Negative (Negative); Urine Blood Negative (Negative); Urine Color Amber; Urine Glucose Negative (Negative); Urine Ketones Negative (Negative); Urine Nitrite Negative (Negative); Urine Protein Negative (Negative); Urine Specific Gravity 1.021 (1.002-1.030); Urine Urobilinogen Negative (Negative)
[2023-07-16 18:08] LABS: High Sensitivity Troponin 1 Hr 28 pg/mL (<15)
[2023-07-16] MEDS ORDERED: Lactated Ringers 1000 ml BAG 1,000 ML IV ONE (18:09)
[2023-07-16 18:48] LABS: Magnesium < 0.5 mg/dL (1.9-2.7)
[2023-07-16] MEDS ORDERED: Magnesium Sulf 4 GM/100 ML IV 4,000 MG/100 ML BAG IVPB ONE (18:49)
[2023-07-16] MEDS ORDERED: Vancomycin 1,000 MG in NS 0.9% 250 ml 250 ML IVPB ONE (19:35)
[2023-07-16] MEDS ORDERED: Piperacillin/Tazobac 3.375 BAG 3.375 GM/100 ML BAG IV ONE (19:39)
[2023-07-16] MEDS ORDERED: Magnesium Hydroxide LIQ 30 ML UDC PO PRN (21:08)
[2023-07-16] MEDS ORDERED: Polyethylene Glycol 3350 17 GM PACKET PO PRN (21:08)
[2023-07-16] MEDS ORDERED: NS 0.9% 1000 ml BAG 1,000 ML IV SCH (21:30)
[2023-07-16] MEDS ORDERED: Dextrose 50% Syringe 50 ml 25 GM/50 ML SYRINGE IV PUSH PRN (21:55)
[2023-07-16] MEDS ORDERED: fentaNYL PATCH 37.5 MCG/HR(NF) PATCH.TD72 TRANSDERM SCH (22:00)
[2023-07-16] MEDS ORDERED: Zosyn per Pharmacy NOTE FOLLOW UP SCH (22:00)
[2023-07-16] MEDS ORDERED: HYDROcodone/ACETAMIN 5/325 mg TAB PO ONE (22:02)
[2023-07-16] MEDS ORDERED: HYDROcodone/ACET. 7.5/325 LIQ 15 ML UDC PO ONE (22:05)
[2023-07-16] MEDS ORDERED: Albuterol 2.5mg/3 ml (0.083%) NEB.SOLN INH PRN (22:23)
[2023-07-16] MEDS: KCL 20 MEQ/100 ML IVPREMIX 20 MEQ/100 ML BAG IV SCH (22:42)
[2023-07-16] MEDS: Heparin 5000 UNITS/ML 1 mL VIAL SUBCUT SCH (22:48)
[2023-07-17] MEDS: ZOSYN 3.375 GM Q8H per EXTENDED INFUSION IV SCH ×3 (00:02→18:04)
[2023-07-17] MEDS: KCL 20 MEQ/100 ML IVPREMIX 20 MEQ/100 ML BAG IV SCH (01:59)
[2023-07-17] MEDS ORDERED: fentaNYL PATCH 12 MCG/HR 1 PATCH TRANSDERM SCH (06:00)
[2023-07-17 08:08] LABS: ABS Basophils 0.1 10^3/uL (0.0-0.1); ABS Lymphocytes 1.1 10^3/uL (1.0-4.8); ABS Monocytes 0.3 10^3/uL (0.0-0.9); ABS Neutrophils 7.6 10^3/uL (1.5-7.6); Eosinophil % 0.4 %; Hematocrit 32.2 % (35-45); Hemoglobin 10.8 g/dL (11.5-14.3); Lymphocyte % 11.9 %; Mean Corpuscular Hemoglobin 26.6 pg (27-33); Mean Corpuscular Hgb Conc 33.5 g/dL (31-36); Mean Corpuscular Volume 79.4 fL (80-97); Mean Platelet Volume 8.1 fL (7.5-11.2); Platelet Count 196 10^3/uL (150-450); Red Blood Count 4.05 10^6/uL (3.63-4.92); Red Cell Distribution Width 17.2 % (12-17); White Blood Count 9.1 10^3/uL (3.8-11.8)
[2023-07-17] MEDS: fentaNYL Patch Check Q Shift NOTE FOLLOW UP SCH ×2 (08:19→19:46)
[2023-07-17 08:30] LABS: C Reactive Protein 197.06 mg/L (<8.01); Creatinine, Serum 0.79 mg/dL (0.51-0.95); Magnesium 1.3 mg/dL (1.9-2.7); Potassium 3.3 mmol/L (3.5-5.0); eGFR CKD-EPI 81.4 (>60)
[2023-07-17] MEDS: HYDROcodone/ACET. 7.5/325 LIQ 15 ML UDC PO SCH ×3 (08:45→22:20)
[2023-07-17 08:47] LABS: TSH Ultra Thyroid Stim Horm 11.82 mcIU/mL (0.34-5.60)
[2023-07-17] MEDS: DULoxetine DR 60 mg CAP PO SCH (09:06)
[2023-07-17] MEDS: fentaNYL PATCH 25 MCG/HR 1 PATCH TRANSDERM SCH (09:09)
[2023-07-17] MEDS ORDERED: Potassium EFFERVES 25 meq TAB PO ONE (09:42)
[2023-07-17] MEDS ORDERED: Magnesium Sulf 4 GM/100 ML IV 4,000 MG/100 ML BAG IVPB ONE (09:42)
[2023-07-17] MEDS: Heparin 5000 UNITS/ML 1 mL VIAL SUBCUT SCH ×3 (11:55→22:39)
[2023-07-17] MEDS: Senna TAB 8.6 mg TAB PO PRN (22:24)
[2023-07-18] MEDS: ZOSYN 3.375 GM Q8H per EXTENDED INFUSION IV SCH ×3 (01:30→16:35)
[2023-07-18] MEDS: Heparin 5000 UNITS/ML 1 mL VIAL SUBCUT SCH ×3 (05:56→22:29)
[2023-07-18 06:17] LABS: ABS Lymphocytes 0.8 10^3/uL (1.0-4.8); ABS Monocytes 0.2 10^3/uL (0.0-0.9); ABS Neutrophils 3.5 10^3/uL (1.5-7.6); Eosinophil % 0.7 %; Hematocrit 28.4 % (35-45); Hemoglobin 9.6 g/dL (11.5-14.3); Mean Corpuscular Hemoglobin 26.7 pg (27-33); Mean Corpuscular Volume 78.5 fL (80-97); Mean Platelet Volume 7.9 fL (7.5-11.2); Platelet Count 175 10^3/uL (150-450); Red Blood Count 3.61 10^6/uL (3.63-4.92); Red Cell Distribution Width 17.3 % (12-17); White Blood Count 4.6 10^3/uL (3.8-11.8)
[2023-07-18 06:29] LABS: Calcium 7.2 mg/dL (8.6-10.3); Creatinine, Serum 0.64 mg/dL (0.51-0.95); Magnesium 1.8 mg/dL (1.9-2.7); Potassium 3.4 mmol/L (3.5-5.0); eGFR CKD-EPI 96.2 (>60)
[2023-07-18] MEDS ORDERED: Magnesium Sulfate 2 gm BAG 2 GM/50 ML BAG IVPB ONE (07:30)
[2023-07-18] MEDS: fentaNYL Patch Check Q Shift NOTE FOLLOW UP SCH ×2 (07:46→19:14)
[2023-07-18] MEDS ORDERED: Potassium EFFERVES 25 meq TAB PO ONE (08:00)
[2023-07-18] MEDS: HYDROcodone/ACET. 7.5/325 LIQ 15 ML UDC PO SCH ×3 (09:54→22:26)
[2023-07-18] MEDS: DULoxetine DR 60 mg CAP PO SCH (11:18)
[2023-07-18] MEDS: Miconazole 2% Top Powder BTL TOPICAL SCH ×2 (12:32→22:57)
[2023-07-18] MEDS: Nystatin TOP POWDER 15 GM BTL TOPICAL SCH ×2 (12:33→22:58)
[2023-07-18] MEDS: Ondansetron 4 mg VIAL 2 MG/ML 2 ml VIAL IV PRN (20:23)
[2023-07-19] MEDS: ZOSYN 3.375 GM Q8H per EXTENDED INFUSION IV SCH ×3 (01:07→17:14)
[2023-07-19] MEDS: Heparin 5000 UNITS/ML 1 mL VIAL SUBCUT SCH ×3 (05:33→21:23)
[2023-07-19 06:17] LABS: ABS Eosinophils 0.1 10^3/uL (0.0-0.5); ABS Lymphocytes 1.1 10^3/uL (1.0-4.8); ABS Monocytes 0.2 10^3/uL (0.0-0.9); ABS Neutrophils 2.1 10^3/uL (1.5-7.6); ABS Nucleated RBC 0.01 10^3/ul; Eosinophil % 1.7 %; Hemoglobin 10.1 g/dL (11.5-14.3); Lymphocyte % 31.5 %; Mean Corpuscular Hemoglobin 26.5 pg (27-33); Mean Corpuscular Hgb Conc 33.6 g/dL (31-36); Mean Corpuscular Volume 78.9 fL (80-97); Mean Platelet Volume 7.8 fL (7.5-11.2); Nucleated Red Blood Cells % 0.2 /100 WBC (0.0-0.4); Platelet Count 210 10^3/uL (150-450); Red Cell Distribution Width 17.9 % (12-17); White Blood Count 3.5 10^3/uL (3.8-11.8)
[2023-07-19 06:38] LABS: C Reactive Protein 97.83 mg/L (<8.01); Creatinine, Serum 0.69 mg/dL (0.51-0.95); eGFR CKD-EPI 94.5 (>60)
[2023-07-19] MEDS: fentaNYL Patch Check Q Shift NOTE FOLLOW UP SCH ×2 (07:25→19:16)
[2023-07-19] MEDS: Ondansetron 4 mg VIAL 2 MG/ML 2 ml VIAL IV PRN (08:37)
[2023-07-19] MEDS: HYDROcodone/ACET. 7.5/325 LIQ 15 ML UDC PO SCH (08:40)
[2023-07-19] MEDS: DULoxetine DR 60 mg CAP PO SCH (09:04)
[2023-07-19] MEDS: Nystatin TOP POWDER 15 GM BTL TOPICAL SCH ×2 (10:43→21:24)
[2023-07-19] MEDS: Miconazole 2% Top Powder BTL TOPICAL SCH ×2 (11:30→21:23)
[2023-07-19] MEDS ORDERED: HYDROcodone/ACET. 7.5/325 LIQ 15 ML UDC PO PRN (12:00)
[2023-07-19] MEDS: Senna TAB 8.6 mg TAB PO PRN (13:56)
[2023-07-20] MEDS: ZOSYN 3.375 GM Q8H per EXTENDED INFUSION IV SCH ×3 (00:36→17:30)
[2023-07-20] MEDS: fentaNYL PATCH 25 MCG/HR 1 PATCH TRANSDERM SCH (05:50)
[2023-07-20] MEDS: Heparin 5000 UNITS/ML 1 mL VIAL SUBCUT SCH ×3 (05:52→21:27)
[2023-07-20 06:13] LABS: ABS Lymphocytes 0.9 10^3/uL (1.0-4.8); ABS Monocytes 0.2 10^3/uL (0.0-0.9); ABS Neutrophils 1.1 10^3/uL (1.5-7.6); Eosinophil % 1.7 %; Hematocrit 28.2 % (35-45); Hemoglobin 9.5 g/dL (11.5-14.3); Lymphocyte % 40.5 %; Mean Corpuscular Hemoglobin 26.7 pg (27-33); Mean Corpuscular Hgb Conc 33.7 g/dL (31-36); Mean Corpuscular Volume 79.2 fL (80-97); Mean Platelet Volume 7.8 fL (7.5-11.2); Platelet Count 205 10^3/uL (150-450); Red Blood Count 3.56 10^6/uL (3.63-4.92); Red Cell Distribution Width 17.8 % (12-17); White Blood Count 2.2 10^3/uL (3.8-11.8)
[2023-07-20 06:36] LABS: Creatinine, Serum 0.64 mg/dL (0.51-0.95); Magnesium 1.4 mg/dL (1.9-2.7); Potassium 3.9 mmol/L (3.5-5.0); eGFR CKD-EPI 96.2 (>60)
[2023-07-20] MEDS: fentaNYL Patch Check Q Shift NOTE FOLLOW UP SCH ×2 (07:12→18:57)
[2023-07-20] MEDS ORDERED: Magnesium Sulf 4 GM/100 ML IV 4,000 MG/100 ML BAG IVPB ONE (07:17)
[2023-07-20] MEDS: DULoxetine DR 60 mg CAP PO SCH (08:25)
[2023-07-20] MEDS: Nystatin TOP POWDER 15 GM BTL TOPICAL SCH ×2 (09:04→21:28)
[2023-07-20] MEDS: Miconazole 2% Top Powder BTL TOPICAL SCH ×2 (09:24→21:28)
[2023-07-20] MEDS: HYDROcodone/ACETAMIN 5/325 mg TAB PO PRN ×2 (13:39→21:27)
[2023-07-20] MEDS ORDERED: fentaNYL PATCH 12 MCG/HR 1 PATCH TRANSDERM SCH (17:30)
[2023-07-21] MEDS: Heparin 5000 UNITS/ML 1 mL VIAL SUBCUT SCH (05:56)
[2023-07-21] MEDS: fentaNYL Patch Check Q Shift NOTE FOLLOW UP SCH (06:51)
[2023-07-21] MEDS: DULoxetine DR 60 mg CAP PO SCH (08:09)
[2023-07-21] MEDS: HYDROcodone/ACETAMIN 5/325 mg TAB PO PRN ×2 (09:06→13:47)
[2023-07-21] MEDS: Miconazole 2% Top Powder BTL TOPICAL SCH (09:41)
[2023-07-21] MEDS: Nystatin TOP POWDER 15 GM BTL TOPICAL SCH (09:47)
[2023-07-21 10:17] LABS: ABS Monocytes 0.2 10^3/uL (0.0-0.9); ABS Neutrophils 2.2 10^3/uL (1.5-7.6); ABS Nucleated RBC 0.01 10^3/ul; Eosinophil % 1.3 %; Hematocrit 33.6 % (35-45); Hemoglobin 11.1 g/dL (11.5-14.3); Lymphocyte % 27.4 %; Mean Corpuscular Hemoglobin 26.3 pg (27-33); Mean Corpuscular Hgb Conc 32.9 g/dL (31-36); Mean Corpuscular Volume 79.9 fL (80-97); Mean Platelet Volume 7.5 fL (7.5-11.2); Nucleated Red Blood Cells % 0.2 /100 WBC (0.0-0.4); Platelet Count 251 10^3/uL (150-450); Red Blood Count 4.21 10^6/uL (3.63-4.92); White Blood Count 3.5 10^3/uL (3.8-11.8)
[2023-07-21 13:53] VITALS: BP 133/71
== END 2023-07-21 14:15 | DRG 194 ==
LOC: ED 15:31 → EDHOLD 21:08 → SUATTDRO 21:08 → MED 07-17 13:55
PROVIDERS: ADMIT Student in an Organized Health Care Education/Training Program; ATTEND Internal Medicine

== ENCOUNTER 2023-08-16 17:38 | Inpatient (IN) ==
[2023-08-16] MEDS ORDERED: Acetaminophen IV 1 GM/100ML 1,000 MG/100 ML BAG IV ONE (18:03)
[2023-08-16 19:51] LABS: Activated Partial Thrombo Time 31.1 seconds (26.0-38.0); INR 1.22 (0.83-1.13)
[2023-08-16 19:58] LABS: Albumin 3.3 g/dL (3.2-5.2); Calcium 8.5 mg/dL (8.6-10.3); Potassium 3.4 mmol/L (3.5-5.0); Total Bilirubin 0.4 mg/dL (0.2-1.0)
[2023-08-16 20:05] LABS: Albumin/Globulin Ratio 0.9 (1-3); C Reactive Protein 114.14 mg/L (<8.01); Creatinine, Serum 0.59 mg/dL (0.51-0.95); Globulin 3.6 g/dL (2-4); Total Protein 6.9 g/dL (6.4-8.9); eGFR CKD-EPI 98.1 (>60)
[2023-08-16 20:24] LABS: ABS Lymphocytes 0.7 10^3/uL (1.0-4.8); ABS Monocytes 0.7 10^3/uL (0.0-0.9); ABS Neutrophils 6.5 10^3/uL (1.5-7.6); Eosinophil % 0.2 %; Hematocrit 33.6 % (35-45); Hemoglobin 11.1 g/dL (11.5-14.3); Lymphocyte % 8.7 %; Mean Corpuscular Hemoglobin 26.3 pg (27-33); Mean Corpuscular Hgb Conc 33.1 g/dL (31-36); Mean Corpuscular Volume 79.5 fL (80-97); Platelet Count 239 10^3/uL (150-450); Red Blood Count 4.23 10^6/uL (3.63-4.92); Red Cell Distribution Width 18.6 % (12-17); White Blood Count 7.9 10^3/uL (3.8-11.8)
[2023-08-16 20:37] LABS: High Sensitivity Troponin 1 Hr 18 pg/mL (<15)
[2023-08-16] MEDS ORDERED: Piperacillin/Tazobac 3.375 BAG 3.375 GM/100 ML BAG IV ONE (20:51)
[2023-08-16] MEDS ORDERED: Vancomycin 1,000 MG in NS 0.9% 250 ml 250 ML IVPB ONE (20:52)
[2023-08-16] MEDS ORDERED: Al Hydrox/Mg Hydrox/Simet LIQ 30 ML UDC PO PRN (21:48)
[2023-08-16] MEDS ORDERED: Polyethylene Glycol 3350 17 GM PACKET PO PRN (21:48)
[2023-08-16] MEDS ORDERED: Vancomycin per Pharmacy 1 EA NOTE FOLLOW UP SCH (22:00)
[2023-08-16] MEDS ORDERED: Enoxaparin 40 MG/0.4 ML SYR SUBCUT SCH (22:00)
[2023-08-16] MEDS ORDERED: Potassium Chloride LIQUID 20 MEQ/15 ML LIQUID PO ONE (22:00)
[2023-08-16] MEDS ORDERED: Lactated Ringers 1000 ml BAG 1,000 ML IV SCH (22:00)
[2023-08-16] MEDS ORDERED: Nicotine GUM 4MG FRUIT FLAVOR PO PRN (22:24)
[2023-08-16] MEDS ORDERED: Dextrose 50% Syringe 50 ml 25 GM/50 ML SYRINGE IV PUSH PRN (23:10)
[2023-08-16] MEDS: Vancomycin 1,250 MG in NS 0.9% 250 ml 250 ML IVPB SCH (23:40)
[2023-08-17] MEDS ORDERED: NS 0.9% 1000 ml BAG 1,000 ML IV ONE (00:05)
[2023-08-17] MEDS ORDERED: Albuterol 2.5mg/3 ml (0.083%) NEB.SOLN INH PRN (00:39)
[2023-08-17] MEDS ORDERED: Zosyn per Pharmacy NOTE FOLLOW UP SCH (01:00)
[2023-08-17] MEDS ORDERED: Acetaminophen IV 1 GM/100ML 1,000 MG/100 ML BAG IV PRN (01:04)
[2023-08-17] MEDS: ZOSYN 3.375 GM Q8H per EXTENDED INFUSION IV SCH ×2 (02:39→09:39)
[2023-08-17 02:57] LABS: Urine Appearance Turbid; Urine Bilirubin Negative (Negative); Urine Blood 1+ (Negative); Urine Color Amber; Urine Glucose Negative (Negative); Urine Ketones Trace (Negative); Urine Nitrite Positive (Negative); Urine Protein 3+(>=500 mg/dL) (Negative); Urine Specific Gravity 1.033 (1.002-1.030); Urine Urobilinogen Negative (Negative)
[2023-08-17 03:00] LABS: Urine Bacteria 2+ (Absent); Urine Red Blood Cell 3+(>10/hpf) (Absent); Urine Squamous Epithelial Cell Present (Absent); Urine White Blood Cell 3+(>20/hpf) (Absent); Urine Yeast Present (Absent)
[2023-08-17] MEDS: FENTANYL 37.5 MCG/HR TRANSDERM SCH (03:09)
[2023-08-17 03:14] LABS: Urine Osmo 717 mOsm/kg (150-1150)
[2023-08-17] MEDS ORDERED: LORazepam 2 mg VIAL 1 ml IV PUSH ONE (03:15)
[2023-08-17] MEDS ORDERED: Lorazepam PYXIS KEY PRN (03:15)
[2023-08-17 04:22] LABS: ABS Lymphocytes 0.8 10^3/uL (1.0-4.8); ABS Monocytes 0.6 10^3/uL (0.0-0.9); ABS Neutrophils 5.5 10^3/uL (1.5-7.6); ABS Nucleated RBC 0.01 10^3/ul; Eosinophil % 0.2 %; Hematocrit 30.8 % (35-45); Hemoglobin 10.3 g/dL (11.5-14.3); Lymphocyte % 10.9 %; Mean Corpuscular Hemoglobin 26.7 pg (27-33); Mean Corpuscular Hgb Conc 33.3 g/dL (31-36); Mean Corpuscular Volume 80.2 fL (80-97); Nucleated Red Blood Cells % 0.1 /100 WBC (0.0-0.4); Platelet Count 200 10^3/uL (150-450); Red Blood Count 3.84 10^6/uL (3.63-4.92); Red Cell Distribution Width 18.4 % (12-17); White Blood Count 6.9 10^3/uL (3.8-11.8)
[2023-08-17 04:39] LABS: Calcium 7.8 mg/dL (8.6-10.3); Creatinine, Serum 0.62 mg/dL (0.51-0.95); Potassium 3.3 mmol/L (3.5-5.0); eGFR CKD-EPI 96.9 (>60)
[2023-08-17 05:47] LABS: Osmolality Serum 285 mOsm/kg (275-295)
[2023-08-17] MEDS ORDERED: Vancomycin 1,250 MG in NS 0.9% 250 ml 250 ML IVPB SCH (06:30)
[2023-08-17] MEDS ORDERED: Potassium Chlor 20 meq TAB.ER PO ONE (09:23)
[2023-08-17] MEDS: DULoxetine DR 60 mg CAP PO SCH (09:43)
[2023-08-17] MEDS: Nicotine PATCH 14 MG/24 HR PATCH TRANSDERM SCH ×2 (09:44→09:48)
[2023-08-17] MEDS: fentaNYL Patch Check Q Shift NOTE FOLLOW UP SCH ×2 (09:52→19:26)
[2023-08-17] MEDS: Morphine 2 MG/ML SYRINGE IV PRN ×3 (11:26→21:10)
[2023-08-17] MEDS: Ondansetron 4 mg VIAL 2 MG/ML 2 ml VIAL IV PRN (13:35)
[2023-08-17] MEDS: FLUTICAS/UMECLI/VILANT 100-62.5-25 MDI (NF) INH SCH (13:37)
[2023-08-17] MEDS: Enoxaparin 40 MG/0.4 ML SYR SUBCUT SCH (16:21)
[2023-08-17] MEDS: Vancomycin 1,250 MG in NS 0.9% 250 ml 250 ML IVPB SCH (19:00)
[2023-08-18] MEDS: Morphine 2 MG/ML SYRINGE IV PRN ×4 (01:11→20:42)
[2023-08-18] MEDS ORDERED: Vancomycin Trough Check NOTE FOLLOW UP ONE (06:00)
[2023-08-18 06:56] LABS: ABS Lymphocytes 0.8 10^3/uL (1.0-4.8); ABS Monocytes 0.5 10^3/uL (0.0-0.9); ABS Neutrophils 4.4 10^3/uL (1.5-7.6); ABS Nucleated RBC 0.01 10^3/ul; Eosinophil % 0.5 %; Hematocrit 30.7 % (35-45); Hemoglobin 10.3 g/dL (11.5-14.3); Lymphocyte % 13.3 %; Mean Corpuscular Hemoglobin 26.8 pg (27-33); Mean Corpuscular Hgb Conc 33.6 g/dL (31-36); Mean Corpuscular Volume 79.9 fL (80-97); Mean Platelet Volume 7.5 fL (7.5-11.2); Nucleated Red Blood Cells % 0.1 /100 WBC (0.0-0.4); Platelet Count 227 10^3/uL (150-450); Red Blood Count 3.84 10^6/uL (3.63-4.92); Red Cell Distribution Width 18.4 % (12-17); White Blood Count 5.6 10^3/uL (3.8-11.8)
[2023-08-18 07:02] LABS: ALT 10 U/L (7-52); AST 19 U/L (13-39); Albumin 2.9 g/dL (3.2-5.2); Albumin/Globulin Ratio 0.9 (1-3); Alkaline Phosphatase 97 U/L (35-149); Anion Gap 10 mmol/L (2-16); Blood Urea Nitrogen 9 mg/dL (6-24); CO2 Carbon Dioxide 25 mmol/L (22-32); Chloride 102 mmol/L (101-111); Creatinine, Serum 0.77 mg/dL (0.51-0.95); Globulin 3.3 g/dL (2-4); Glucose 75 mg/dL (70-100); Potassium 3.5 mmol/L (3.5-5.0); Sodium 137 mmol/L (135-145); Total Protein 6.2 g/dL (6.4-8.9)
[2023-08-18 07:06] LABS: Magnesium < 0.5 mg/dL (1.9-2.7)
[2023-08-18] MEDS: fentaNYL Patch Check Q Shift NOTE FOLLOW UP SCH ×2 (07:09→19:17)
[2023-08-18] MEDS ORDERED: Magnesium Sulf 4 GM/100 ML IV 4,000 MG/100 ML BAG IVPB ONE (07:21)
[2023-08-18] MEDS ORDERED: Potassium Chlor 20 meq TAB.ER PO ONE (07:22)
[2023-08-18] MEDS: Vancomycin 1,250 MG in NS 0.9% 250 ml 250 ML IVPB SCH ×2 (09:17→17:53)
[2023-08-18] MEDS: Nicotine PATCH 14 MG/24 HR PATCH TRANSDERM SCH (09:21)
[2023-08-18] MEDS: DULoxetine DR 60 mg CAP PO SCH (09:22)
[2023-08-18] MEDS: Ondansetron 4 mg VIAL 2 MG/ML 2 ml VIAL IV PRN (09:43)
[2023-08-18] MEDS: FLUTICAS/UMECLI/VILANT 100-62.5-25 MDI (NF) INH SCH ×2 (10:03→12:45)
[2023-08-18] MEDS ORDERED: Magnesium Sulfate 2 gm BAG 2 GM/50 ML BAG IVPB ONE (11:53)
[2023-08-18] MEDS: cefTRIAXone 1 gm/50 mL D5W 1 GM/50 ML BAG IV SCH (16:40)
[2023-08-18] MEDS: Enoxaparin 40 MG/0.4 ML SYR SUBCUT SCH (16:40)
[2023-08-19] MEDS: Morphine 2 MG/ML SYRINGE IV PRN ×5 (00:42→21:29)
[2023-08-19] MEDS: Ondansetron 4 mg VIAL 2 MG/ML 2 ml VIAL IV PRN (05:38)
[2023-08-19 05:52] LABS: ABS Eosinophils 0.1 10^3/uL (0.0-0.5); ABS Lymphocytes 0.8 10^3/uL (1.0-4.8); ABS Monocytes 0.3 10^3/uL (0.0-0.9); ABS Neutrophils 3.3 10^3/uL (1.5-7.6); Eosinophil % 1.2 %; Hematocrit 29.9 % (35-45); Hemoglobin 10.1 g/dL (11.5-14.3); Lymphocyte % 17.1 %; Mean Corpuscular Hemoglobin 27.1 pg (27-33); Mean Corpuscular Hgb Conc 33.7 g/dL (31-36); Mean Corpuscular Volume 80.4 fL (80-97); Mean Platelet Volume 7.4 fL (7.5-11.2); Platelet Count 245 10^3/uL (150-450); Red Blood Count 3.71 10^6/uL (3.63-4.92); Red Cell Distribution Width 18.5 % (12-17); White Blood Count 4.4 10^3/uL (3.8-11.8)
[2023-08-19 06:11] LABS: Calcium 8.5 mg/dL (8.6-10.3); Creatinine, Serum 1.18 mg/dL (0.51-0.95); Magnesium 1.8 mg/dL (1.9-2.7); Potassium 3.8 mmol/L (3.5-5.0); eGFR CKD-EPI 50.3 (>60)
[2023-08-19] MEDS: fentaNYL Patch Check Q Shift NOTE FOLLOW UP SCH ×2 (06:44→18:55)
[2023-08-19] MEDS ORDERED: Magnesium Sulfate 2 gm BAG 2 GM/50 ML BAG IVPB ONE ×2 (06:55→07:29)
[2023-08-19] MEDS ORDERED: Potassium Chlor 20 meq TAB.ER PO ONE (07:29)
[2023-08-19] MEDS: FLUTICAS/UMECLI/VILANT 100-62.5-25 MDI (NF) INH SCH (07:37)
[2023-08-19] MEDS ORDERED: NS 0.9% 1000 ml BAG 1,000 ML IV SCH (07:45)
[2023-08-19] MEDS: Vancomycin 1,250 MG in NS 0.9% 250 ml 250 ML IVPB SCH ×2 (08:00→18:37)
[2023-08-19 08:32] LABS: C Reactive Protein 115.54 mg/L (<8.01)
[2023-08-19] MEDS: Nicotine PATCH 14 MG/24 HR PATCH TRANSDERM SCH (08:47)
[2023-08-19] MEDS: Senna TAB 8.6 mg TAB PO PRN (08:49)
[2023-08-19] MEDS: DULoxetine DR 60 mg CAP PO SCH (08:49)
[2023-08-19] MEDS ORDERED: D5LR 1000 ml BAG 1,000 ML IV SCH ×2 (10:00)
[2023-08-19 11:24] LABS: TSH Ultra Thyroid Stim Horm 0.61 mcIU/mL (0.34-5.60)
[2023-08-19] MEDS: cefTRIAXone 1 gm/50 mL D5W 1 GM/50 ML BAG IV SCH (15:58)
[2023-08-19] MEDS: Enoxaparin 40 MG/0.4 ML SYR SUBCUT SCH (16:42)
[2023-08-19 17:06] LABS: Free T3 2.4 pg/mL (2.5-3.9)
[2023-08-19 17:08] LABS: Free T4 2.26 ng/dL (0.61-1.12)
[2023-08-20] MEDS: Morphine 2 MG/ML SYRINGE IV PRN ×4 (01:30→22:08)
[2023-08-20] MEDS: FENTANYL 37.5 MCG/HR TRANSDERM SCH (01:55)
[2023-08-20] MEDS ORDERED: Vancomycin Trough Check NOTE FOLLOW UP ONE (06:00)
[2023-08-20 07:06] LABS: ABS Eosinophils 0.1 10^3/uL (0.0-0.5); ABS Lymphocytes 0.6 10^3/uL (1.0-4.8); ABS Monocytes 0.3 10^3/uL (0.0-0.9); ABS Neutrophils 3.8 10^3/uL (1.5-7.6); Eosinophil % 1.3 %; Hemoglobin 10.1 g/dL (11.5-14.3); Lymphocyte % 12.1 %; Mean Corpuscular Hemoglobin 26.8 pg (27-33); Mean Corpuscular Hgb Conc 33.6 g/dL (31-36); Mean Corpuscular Volume 79.9 fL (80-97); Mean Platelet Volume 7.2 fL (7.5-11.2); Platelet Count 252 10^3/uL (150-450); Red Blood Count 3.75 10^6/uL (3.63-4.92); Red Cell Distribution Width 18.4 % (12-17); White Blood Count 4.7 10^3/uL (3.8-11.8)
[2023-08-20 07:26] LABS: Calcium 8.7 mg/dL (8.6-10.3); Creatinine, Serum 1.38 mg/dL (0.51-0.95); Potassium 4.1 mmol/L (3.5-5.0); eGFR CKD-EPI 41.7 (>60)
[2023-08-20] MEDS: FLUTICAS/UMECLI/VILANT 100-62.5-25 MDI (NF) INH SCH (07:40)
[2023-08-20 08:04] LABS: Vancomycin Trough 29.3 mcg/mL
[2023-08-20] MEDS: Vancomycin 1,250 MG in NS 0.9% 250 ml 250 ML IVPB SCH (08:10)
[2023-08-20] MEDS: Nicotine PATCH 14 MG/24 HR PATCH TRANSDERM SCH (10:50)
[2023-08-20] MEDS: DULoxetine DR 60 mg CAP PO SCH (10:54)
[2023-08-20] MEDS: fentaNYL PATCH 50 MCG/HR 1 PATCH TRANSDERM SCH (11:53)
[2023-08-20] MEDS: cefTRIAXone 1 gm/50 mL D5W 1 GM/50 ML BAG IV SCH (17:35)
[2023-08-20] MEDS: Enoxaparin 40 MG/0.4 ML SYR SUBCUT SCH (17:35)
[2023-08-20] MEDS: fentaNYL Patch Check Q Shift NOTE FOLLOW UP SCH (19:10)
[2023-08-21] MEDS: Morphine 2 MG/ML SYRINGE IV PRN ×5 (02:32→21:56)
[2023-08-21] MEDS: Ondansetron 4 mg VIAL 2 MG/ML 2 ml VIAL IV PRN (06:40)
[2023-08-21 06:42] LABS: ABS Lymphocytes 0.8 10^3/uL (1.0-4.8); ABS Monocytes 0.4 10^3/uL (0.0-0.9); ABS Neutrophils 3.2 10^3/uL (1.5-7.6); Hemoglobin 10.1 g/dL (11.5-14.3); Mean Corpuscular Hemoglobin 26.8 pg (27-33); Mean Corpuscular Hgb Conc 33.6 g/dL (31-36); Mean Corpuscular Volume 79.8 fL (80-97); Mean Platelet Volume 7.6 fL (7.5-11.2); Platelet Count 265 10^3/uL (150-450); Red Blood Count 3.77 10^6/uL (3.63-4.92); Red Cell Distribution Width 18.3 % (12-17); White Blood Count 4.5 10^3/uL (3.8-11.8)
[2023-08-21 06:52] LABS: Calcium 9.3 mg/dL (8.6-10.3); Creatinine, Serum 1.54 mg/dL (0.51-0.95); Magnesium 1.8 mg/dL (1.9-2.7); Potassium 3.9 mmol/L (3.5-5.0); eGFR CKD-EPI 36.6 (>60)
[2023-08-21] MEDS ORDERED: Magnesium Sulfate 2 gm BAG 2 GM/50 ML BAG IVPB ONE (06:56)
[2023-08-21] MEDS: fentaNYL Patch Check Q Shift NOTE FOLLOW UP SCH ×2 (07:42→19:30)
[2023-08-21] MEDS: FLUTICAS/UMECLI/VILANT 100-62.5-25 MDI (NF) INH SCH (08:27)
[2023-08-21] MEDS: Enoxaparin 30 MG/0.3 ML SYR SUBCUT SCH (09:00)
[2023-08-21] MEDS: Nicotine PATCH 14 MG/24 HR PATCH TRANSDERM SCH (09:01)
[2023-08-21] MEDS: DULoxetine DR 60 mg CAP PO SCH (09:24)
[2023-08-21] MEDS: DOXYcycline 100 MG in NS 0.9% 250 ml 250 ML IVPB SCH ×2 (11:00→21:50)
[2023-08-21] MEDS: cefTRIAXone 1 gm/50 mL D5W 1 GM/50 ML BAG IV SCH (16:21)
[2023-08-22 06:30] LABS: ABS Eosinophils 0.1 10^3/uL (0.0-0.5); ABS Lymphocytes 0.9 10^3/uL (1.0-4.8); ABS Monocytes 0.4 10^3/uL (0.0-0.9); ABS Neutrophils 3.2 10^3/uL (1.5-7.6); ABS Nucleated RBC 0.01 10^3/ul; Eosinophil % 1.3 %; Hematocrit 33.8 % (35-45); Hemoglobin 11.2 g/dL (11.5-14.3); Lymphocyte % 19.3 %; Mean Corpuscular Hemoglobin 26.9 pg (27-33); Mean Corpuscular Hgb Conc 33.3 g/dL (31-36); Mean Corpuscular Volume 80.8 fL (80-97); Mean Platelet Volume 7.4 fL (7.5-11.2); Nucleated Red Blood Cells % 0.2 /100 WBC (0.0-0.4); Platelet Count 259 10^3/uL (150-450); Red Blood Count 4.18 10^6/uL (3.63-4.92); Red Cell Distribution Width 18.5 % (12-17); White Blood Count 4.6 10^3/uL (3.8-11.8)
[2023-08-22 06:45] LABS: Calcium 9.2 mg/dL (8.6-10.3); Creatinine, Serum 1.56 mg/dL (0.51-0.95); Magnesium 1.9 mg/dL (1.9-2.7); Potassium 3.7 mmol/L (3.5-5.0)
[2023-08-22] MEDS ORDERED: Potassium Chlor 20 meq TAB.ER PO ONE (07:02)
[2023-08-22] MEDS ORDERED: Magnesium Sulfate IV 1GM/100ML 1 GM/100 ML BAG IV ONE (07:02)
[2023-08-22] MEDS: fentaNYL Patch Check Q Shift NOTE FOLLOW UP SCH ×2 (07:29→19:25)
[2023-08-22] MEDS: FLUTICAS/UMECLI/VILANT 100-62.5-25 MDI (NF) INH SCH (09:48)
[2023-08-22] MEDS: Nicotine PATCH 14 MG/24 HR PATCH TRANSDERM SCH (11:31)
[2023-08-22] MEDS: DULoxetine DR 60 mg CAP PO SCH (11:31)
[2023-08-22] MEDS: Enoxaparin 30 MG/0.3 ML SYR SUBCUT SCH (11:31)
[2023-08-22] MEDS: DOXYcycline 100 MG in NS 0.9% 250 ml 250 ML IVPB SCH ×2 (16:49→22:30)
[2023-08-22] MEDS: Ondansetron 4 mg VIAL 2 MG/ML 2 ml VIAL IV PRN (16:49)
[2023-08-22] MEDS: cefTRIAXone 1 gm/50 mL D5W 1 GM/50 ML BAG IV SCH (18:24)
[2023-08-22] MEDS: Morphine 2 MG/ML SYRINGE IV PRN (22:25)
[2023-08-22] MEDS: Senna TAB 8.6 mg TAB PO PRN (22:25)
[2023-08-23] MEDS: Morphine 2 MG/ML SYRINGE IV PRN (05:55)
[2023-08-23] MEDS: Ondansetron 4 mg VIAL 2 MG/ML 2 ml VIAL IV PRN ×2 (06:23→10:37)
[2023-08-23 07:02] LABS: ABS Eosinophils 0.1 10^3/uL (0.0-0.5); ABS Lymphocytes 0.9 10^3/uL (1.0-4.8); ABS Monocytes 0.5 10^3/uL (0.0-0.9); ABS Neutrophils 5.6 10^3/uL (1.5-7.6); Calcium 9.3 mg/dL (8.6-10.3); Creatinine, Serum 1.58 mg/dL (0.51-0.95); Eosinophil % 1.2 %; Hematocrit 33.6 % (35-45); Hemoglobin 11.1 g/dL (11.5-14.3); Lymphocyte % 13.1 %; Magnesium 1.8 mg/dL (1.9-2.7); Mean Corpuscular Hemoglobin 26.7 pg (27-33); Mean Corpuscular Hgb Conc 33.1 g/dL (31-36); Mean Corpuscular Volume 80.7 fL (80-97); Mean Platelet Volume 7.5 fL (7.5-11.2); Platelet Count 314 10^3/uL (150-450); Potassium 3.8 mmol/L (3.5-5.0); Red Blood Count 4.17 10^6/uL (3.63-4.92); Red Cell Distribution Width 18.8 % (12-17); White Blood Count 7.2 10^3/uL (3.8-11.8); eGFR CKD-EPI 35.4 (>60)
[2023-08-23] MEDS: FLUTICAS/UMECLI/VILANT 100-62.5-25 MDI (NF) INH SCH (07:24)
[2023-08-23] MEDS: fentaNYL Patch Check Q Shift NOTE FOLLOW UP SCH (07:31)
[2023-08-23] MEDS ORDERED: Magnesium Sulfate 2 gm BAG 2 GM/50 ML BAG IVPB ONE (07:49)
[2023-08-23] MEDS ORDERED: Acetaminophen IV 1 GM/100ML 1,000 MG/100 ML BAG IV SCH (08:15)
[2023-08-23] MEDS: Enoxaparin 30 MG/0.3 ML SYR SUBCUT SCH (10:03)
[2023-08-23] MEDS: DULoxetine DR 60 mg CAP PO SCH (10:05)
[2023-08-23] MEDS: Nicotine PATCH 14 MG/24 HR PATCH TRANSDERM SCH (10:20)
[2023-08-23] MEDS: DOXYcycline 100 MG in NS 0.9% 250 ml 250 ML IVPB SCH (10:20)
[2023-08-23] MEDS: fentaNYL PATCH 50 MCG/HR 1 PATCH TRANSDERM SCH (12:17)
[2023-08-23 14:21] VITALS: BP 148/79
== END 2023-08-23 16:20 | DRG 872 ==
LOC: ED 17:38 → EDHOLD 17:38 → SUATTDRO 21:48 → MEDTELE 21:48
PROVIDERS: ADMIT Internal Medicine; ATTEND Internal Medicine